=== PATIENT | female | born 1975 | race Caucasian/White ===

== ENCOUNTER 2016-07-23 20:31 | Emergency (ER) | payer BC ==
--- NOTE | 2016-07-23 20:58 | EDM.PDOC ---
ED HPI RENAL/ - General Chief Complaint: Genitourinary Problem Stated Complaint: FLU SYMPTOMS Time Seen by Provider: 07/23/16 20:50 Source of Information: Reports: Patient, Family, RN - History of Present Illness INITIAL COMMENTS - FREE TEXT/NARRATIVE: Today she developed slight dysuria lobe dominant discomfort myalgias subjective feeling of fever the she vomited think she is dehydrated he has juvenile onset diabetes since age 15. She has an insulin pump and. She felt chills. - Related Data Allergies/ADRs: Allergies Allergy/AdvReac Type Severity Reaction Status Date / Time cefdinir [From Omnicef] Allergy Shortness Verified 07/23/16 20:50 of Breath Penicillins Allergy Shortness Verified 07/23/16 20:50 of Breath Sulfa (Sulfonamide Allergy Shortness Verified 07/23/16 20:50 Antibiotics) of Breath sulfamethoxazole Allergy Shortness Verified 07/23/16 20:50 [From Bactrim] of Breath trimethoprim [From Bactrim] Allergy Shortness Verified 07/23/16 20:50 of Breath Home Meds: Home Meds Budesonide/Formoterol [Symbicort 160-4.5 MCG] 1 puff INH BID 03/24/16 [History] Insulin Lispro [Humalog] 1 pump SQ ASDIRECTED 03/24/16 [History] Losartan [Cozaar] 10 mg PO DAILY 03/24/16 [History] Past Medical History HEENT History: Reports: None Cardiovascular History: Reports: None Respiratory History: Reports: None Gastrointestinal History: Reports: None Genitourinary History: Reports: None 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: Musculoskeletal History: Reports: None Neurological History: Reports: None Psychiatric History: Reports: None Endocrine/Metabolic History: Reports: Diabetes, type I Hematologic History: Reports: None Immunologic History: Reports: None Oncologic (Cancer) History: Reports: None Dermatologic History: Reports: None - Infectious Disease History Infectious Disease History: Reports: None - Past Surgical History Female Surgical History: Reports: section Social & Family History - Family History Family Medical History: Noncontributory - Tobacco Use Smoking Status *Q: Never Smoker - Caffeine Use Caffeine Use: Reports: Tea - Recreational Drug Use Recreational Drug Use: No ED ROS GENERAL - Review of Systems Review Of Systems: See Below Constitutional: Reports: chills Respiratory: Denies: Cough Cardiovascular: Denies: Chest pain GI/Abdominal: Reports: Abdominal pain, Nausea ED EXAM, RENAL/ - Physical Exam Exam: See Below General Appearance: alert, no apparent distress, other (Slightly dry oral mucosa ) Head: atraumatic Respiratory/Chest: no respiratory distress, lungs clear GI/Abdominal: soft Rectal (Female) Exam: Deferred Back Exam: No: CVA tenderness (L), CVA tenderness (R) Extremities: no pedal edema Neurological: alert, oriented, other (Normal mentation) Psychiatric: normal mood Course - Vital Signs Last Recorded V/S: Last Vital Signs Temp 98.7 F 07/23/16 20:51 Pulse 116 H 07/23/16 22:10 Resp 18 07/23/16 22:10 BP 155/90 H 07/23/16 22:10 Pulse Ox 96 07/23/16 22:10 - Orders/Labs/Meds Orders: Active Orders 24 hr Category Date Time Status POC Glucose [Blood Glucose Check, Bedside] [RC] ONETIME Care 07/23/16 20:45 Active ABG [BLOOD GAS ARTERIAL] [BG] Stat Lab 07/23/16 21:01 Ordered CULTURE URINE [RM] Stat Lab 07/23/16 20:42 Received Sodium Chloride 0.9% [Normal Saline] 1,000 ml Med 07/23/16 21:00 Active IV ASDIRECTED Medication Orders Sodium Chloride (Normal Saline) 1,000 mls @ 999 mls/hr IV ASDIRECTED MICHELLE Last Admin: 07/23/16 21:20 Dose: 999 mls/hr Labs: Laboratory Tests 07/23/16 07/23/16 07/23/16 Range/Units 20:42 20:51 21:15 WBC 11.08 H (4.0-11.0) K/uL RBC 4.82 (4.30-5.90) M/uL Hgb 12.6 (12.0-16.0) g/dL Hct 38.7 (36.0-46.0) % MCV 80.3 (80.0-98.0) fL MCH 26.1 L (27.0-32.0) pg MCHC 32.6 (31.0-37.0) g/dL RDW Std Deviation 39.7 (28.0-62.0) fl RDW Coeff of Nacho 14 (11.0-15.0) % Plt Count 285 (150-400) K/uL MPV 11.50 (7.40-12.00) fL Neut % (Auto) 54.5 (48.0-80.0) % Lymph % (Auto) 36.9 (16.0-40.0) % [place] % (Auto) 6.2 (0.0-15.0) % Eos % (Auto) 2.2 (0.0-7.0) % Baso % (Auto) 0.2 (0.0-1.5) % Neut # (Auto) 6.0 H (1.4-5.7) K/uL Lymph # (Auto) 4.1 H (0.6-2.4) K/uL [place] # (Auto) 0.7 (0.0-0.8) K/uL Eos # (Auto) 0.2 (0.0-0.7) K/uL Baso # (Auto) 0.0 (0.0-0.1) K/uL Nucleated RBC % 0.0 /100WBC Nucleated RBCs # 0 K/uL Lactate (0.20-2.00) mmol/L Sodium (136-146) mmol/L Potassium (3.5-5.1) mmol/L Chloride (98-110) mmol/L Carbon Dioxide (21-31) mmol/L BUN (6.0-23.0) mg/dL Creatinine (0.6-1.5) mg/dL Est Cr Clr Drug Dosing mL/min Estimated GFR (MDRD) ml/min Glucose (60-110) mg/dL POC Glucose 339 H (60-110) mg/dL Calcium (8.8-10.8) mg/dL Total Bilirubin (0.1-1.5) mg/dL AST (5-40) IU/L ALT (8-54) IU/L Alkaline Phosphatase (40-150) Total Protein (6.0-8.0) g/dL Albumin (3.5-5.0) g/dL Globulin (2.0-3.5) g/dL Albumin/Globulin Ratio (1.3-2.8) HCG, Qual (NEG) Urine Color YELLOW Urine Appearance SLT CLOUDY Urine pH 5.5 (5.0-8.0) Ur Specific [place] 1.025 (1.001-1.035) Urine Protein TRACE (NEGATIVE) mg/dL Urine Glucose (UA) >=1000 (NEGATIVE) mg/dL Urine Ketones NEGATIVE (NEGATIVE) mg/dL Urine Occult Blood NEGATIVE (NEGATIVE) Urine Nitrite NEGATIVE (NEGATIVE) Urine Bilirubin NEGATIVE (NEGATIVE) Urine Urobilinogen 0.2 (<2.0) EU/dL Ur Leukocyte Esterase NEGATIVE (NEGATIVE) Urine RBC 0-1 (0-2/HPF) Urine WBC 2-3 (0-5/HPF) Ur Epithelial Cells MODERATE (NONE-FEW) Urine Bacteria 2+ H (NEGATIVE) Ketones (NEG) 07/23/16 07/23/16 07/23/16 Range/Units 21:15 21:15 21:15 WBC (4.0-11.0) K/uL RBC (4.30-5.90) M/uL Hgb (12.0-16.0) g/dL Hct (36.0-46.0) % MCV (80.0-98.0) fL MCH (27.0-32.0) pg MCHC (31.0-37.0) g/dL RDW Std Deviation (28.0-62.0) fl RDW Coeff of Nacho (11.0-15.0) % Plt Count (150-400) K/uL MPV (7.40-12.00) fL Neut % (Auto) (48.0-80.0) % Lymph % (Auto) (16.0-40.0) % [place] % (Auto) (0.0-15.0) % Eos % (Auto) (0.0-7.0) % Baso % (Auto) (0.0-1.5) % Neut # (Auto) (1.4-5.7) K/uL Lymph # (Auto) (0.6-2.4) K/uL [place] # (Auto) (0.0-0.8) K/uL Eos # (Auto) (0.0-0.7) K/uL Baso # (Auto) (0.0-0.1) K/uL Nucleated RBC % /100WBC Nucleated RBCs # K/uL Lactate 1.8 (0.20-2.00) mmol/L Sodium 134 L (136-146) mmol/L Potassium 4.4 (3.5-5.1) mmol/L Chloride 99 (98-110) mmol/L Carbon Dioxide 24 (21-31) mmol/L BUN 17 (6.0-23.0) mg/dL Creatinine 1.0 (0.6-1.5) mg/dL Est Cr Clr Drug Dosing 57.96 mL/min Estimated GFR (MDRD) > 60.0 ml/min Glucose 365 H (60-110) mg/dL POC Glucose (60-110) mg/dL Calcium 9.5 (8.8-10.8) mg/dL Total Bilirubin 0.3 (0.1-1.5) mg/dL AST 53 H (5-40) IU/L ALT 117 H (8-54) IU/L Alkaline Phosphatase 204 H (40-150) Total Protein 7.2 (6.0-8.0) g/dL Albumin 3.8 (3.5-5.0) g/dL Globulin 3.4 (2.0-3.5) g/dL Albumin/Globulin Ratio 1.1 L (1.3-2.8) HCG, Qual (NEG) Urine Color Urine Appearance Urine pH (5.0-8.0) Ur Specific [place] (1.001-1.035) Urine Protein (NEGATIVE) mg/dL Urine Glucose (UA) (NEGATIVE) mg/dL Urine Ketones (NEGATIVE) mg/dL Urine Occult Blood (NEGATIVE) Urine Nitrite (NEGATIVE) Urine Bilirubin (NEGATIVE) Urine Urobilinogen (<2.0) EU/dL Ur Leukocyte Esterase (NEGATIVE) Urine RBC (0-2/HPF) Urine WBC (0-5/HPF) Ur Epithelial Cells (NONE-FEW) Urine Bacteria (NEGATIVE) Ketones NEGATIVE (NEG) 07/23/16 Range/Units 21:15 WBC (4.0-11.0) K/uL RBC (4.30-5.90) M/uL Hgb (12.0-16.0) g/dL Hct (36.0-46.0) % MCV (80.0-98.0) fL MCH (27.0-32.0) pg MCHC (31.0-37.0) g/dL RDW Std Deviation (28.0-62.0) fl RDW Coeff of Nacho (11.0-15.0) % Plt Count (150-400) K/uL MPV (7.40-12.00) fL Neut % (Auto) (48.0-80.0) % Lymph % (Auto) (16.0-40.0) % [place] % (Auto) (0.0-15.0) % Eos % (Auto) (0.0-7.0) % Baso % (Auto) (0.0-1.5) % Neut # (Auto) (1.4-5.7) K/uL Lymph # (Auto) (0.6-2.4) K/uL [place] # (Auto) (0.0-0.8) K/uL Eos # (Auto) (0.0-0.7) K/uL Baso # (Auto) (0.0-0.1) K/uL Nucleated RBC % /100WBC Nucleated RBCs # K/uL Lactate (0.20-2.00) mmol/L Sodium (136-146) mmol/L Potassium (3.5-5.1) mmol/L Chloride (98-110) mmol/L Carbon Dioxide (21-31) mmol/L BUN (6.0-23.0) mg/dL Creatinine (0.6-1.5) mg/dL Est Cr Clr Drug Dosing mL/min Estimated GFR (MDRD) ml/min Glucose (60-110) mg/dL POC Glucose (60-110) mg/dL Calcium (8.8-10.8) mg/dL Total Bilirubin (0.1-1.5) mg/dL AST (5-40) IU/L ALT (8-54) IU/L Alkaline Phosphatase (40-150) Total Protein (6.0-8.0) g/dL Albumin (3.5-5.0) g/dL Globulin (2.0-3.5) g/dL Albumin/Globulin Ratio (1.3-2.8) HCG, Qual NEGATIVE (NEG) Urine Color Urine Appearance Urine pH (5.0-8.0) Ur Specific [place] (1.001-1.035) Urine Protein (NEGATIVE) mg/dL Urine Glucose (UA) (NEGATIVE) mg/dL Urine Ketones (NEGATIVE) mg/dL Urine Occult Blood (NEGATIVE) Urine Nitrite (NEGATIVE) Urine Bilirubin (NEGATIVE) Urine Urobilinogen (<2.0) EU/dL Ur Leukocyte Esterase (NEGATIVE) Urine RBC (0-2/HPF) Urine WBC (0-5/HPF) Ur Epithelial Cells (NONE-FEW) Urine Bacteria (NEGATIVE) Ketones (NEG) Meds: Medications Generic Name Dose Route Start Last Admin Trade Name Dhaval PRN Reason Stop Dose Admin Sodium Chloride 1,000 mls @ 999 mls/hr 07/23/16 21:00 07/23/16 21:20 Normal Saline IV 999 mls/hr ASDIRECTED MICHELLE Administration Discontinued Medications Generic Name Dose Route Start Last Admin Trade Name Freernesto PRN Reason Stop Dose Admin Ondansetron HCl 4 mg 07/23/16 21:21 07/23/16 21:25 Zofran IVPUSH 07/23/16 21:22 4 mg ONETIME ONE Administration Departure - Departure Time of Disposition: 22:22 Disposition: Home, Self-Care 01 Condition: good Clinical Impression: UTI (urinary tract infection), Diabetes mellitus, Hyperglycemia Forms: ED Department Discharge Additional Instructions: I recommended keeping her in the hospital in light of her tachycardia. She wants to try to go home. We discussed potential complications including diabetic ketoacidosis. She insists on going home and says she will drink plenty of fluids - My Orders Last 24 Hours: My Active Orders 07/23/16 20:42 CULTURE URINE [RM] Stat 07/23/16 20:45 POC Glucose [Blood Glucose Check, Bedside] [RC] ONETIME 07/23/16 21:00 Sodium Chloride 0.9% [Normal Saline] 1,000 ml IV ASDIRECTED 07/23/16 21:01 ABG [BLOOD GAS ARTERIAL] [BG] Stat - Assessment/Plan Last 24 Hours: My Active Orders 07/23/16 20:42 CULTURE URINE [RM] Stat 07/23/16 20:45 POC Glucose [Blood Glucose Check, Bedside] [RC] ONETIME 07/23/16 21:00 Sodium Chloride 0.9% [Normal Saline] 1,000 ml IV ASDIRECTED 07/23/16 21:01 ABG [BLOOD GAS ARTERIAL] [BG] Stat Plan: Prescriptions written for Cipro 250 mg twice a day x7 days. Diflucan 100 mg daily x3 days dispense 3. This is prescribed she is concerned about vaginal yeast infections. She's suffered from this problem in the past I also prescribed Zofran ODT 4 mg every 4 hours when necessary nausea dispensed 6 one refill. Followup if she's not improving promptly. Check her blood sugars frequently. Monitors were blood sugars at home and adjust her insulin pump accordingly.
[2016-07-23] MEDS ORDERED: Sodium Chloride 0.9% 1,000 ML IV SCH (21:00)
[2016-07-23] MEDS ORDERED: Ondansetron 4 MG/2 ML SDV IVPUSH ONE (21:21)
[2016-07-23 21:50] LABS: CHLORIDE,CL 99 mmol/L (98-110); SODIUM,NA 134 mmol/L (136-146)
[2016-07-23] MEDS ORDERED: Ciprofloxacin 250 MG Tab PO ONE (22:26)
[2016-07-23 23:14] VITALS: BP 148/91
== END 2016-07-23 23:00 | disposition home or self-care (01) ==
LOC: MW.ED 20:31
DX: N39.0 Urinary tract infection, site not specified (principal); Z88.0 Allergy status to penicillin; E10.65 Type 1 diabetes mellitus with hyperglycemia; R00.0 Tachycardia, unspecified; Z88.2 Allergy status to sulfonamides; Z88.8 Allergy status to other drugs, medicaments and biological substances; Z79.4 Long term (current) use of insulin; Z79.899 Other long term (current) drug therapy
CPT/HCPCS: 80053; 81001; 82009; 82962; 83605; 84703; 85025; 87086; 87804; 96361; 96374; 99283; A9270; J2405; J7040; 99284

== ENCOUNTER → 2016-08-06 | Outpatient (CLI) | payer BC | END | disposition home or self-care (01) | LOC: MW.CHRC 15:20 | PROVIDERS: ATTEND Family Medicine | DX: R30.0 Dysuria (principal); E10.9 Type 1 diabetes mellitus without complications | CPT/HCPCS: 36415; 80061; 81001; 82044; 83036; 85025; 87086 ==

== ENCOUNTER 2016-08-14 18:13 | Emergency (ER) | payer BC ==
[2016-08-14] MEDS ORDERED: Sodium Chloride 0.9% 1,000 ML IV ONE (18:33)
[2016-08-14] MEDS ORDERED: Sodium Chloride 0.9% 10 ML Syringe FLUSH PRN (18:33)
[2016-08-14] MEDS ORDERED: Ketorolac 30 MG/ML SDV IVPUSH ONE (18:33)
[2016-08-14] MEDS ORDERED: Sodium Chloride 0.9% 2.5 ML Syringe FLUSH PRN (18:33)
--- NOTE | 2016-08-14 18:36 | EDM.PDOC ---
<Coco Coffey - Last Filed: 08/14/16 18:42> ED HPI GENERAL MEDICAL PROBLEM - General Chief Complaint: Abdominal Pain Stated Complaint: DIABETES/BACK PAIN Time Seen by Provider: 08/14/16 18:25 - History of Present Illness INITIAL COMMENTS - FREE TEXT/NARRATIVE: HISTORY AND PHYSICAL: History of present illness: The patient is a 41-year-old female with a history of type 1 diabetes who uses insulin pop and also has a history of interstitial cystitis and presents with complaints of left lower abdominal pain that radiates up to her flank for 4 days. Patient states she was seen by her provider in the family practice clinic last week and had labs which I have reviewed--- CBC hemoglobin A1c UA. Patient states her interstitial cystitis has been under good control and she has recently restarted on [place] to continue with the treatment of this. Patient states she has an appointment with her provider tomorrow she fell at the pain was too strong and she wanted evaluation. She has had no associated fever chest pain nausea vomiting or diarrhea and has had normal bowel movements. Patient states her blood sugar has been reasonably well-controlled with her insulin pump. Patient denies any history of kidney stones and has had no GI problems. Patient denies as her had a vasectomy. Patient says that she only takes [id number] medications for pain and never uses narcotics and is more concerned about the symptomatology and its cause. Patient denies any midline back pain and has no right-sided abdominal pain. Review of systems: As per history of present illness and below otherwise all systems reviewed and negative. Past medical history: As per history of present illness and as reviewed below otherwise noncontributory. Surgical history: As per history of present illness and as reviewed below otherwise noncontributory. Social history: No reported history of drug or alcohol abuse. Family history: As per history of present illness and as reviewed below otherwise noncontributory. Physical exam: General: Well-developed overweight female who is nontoxic and speaking clearly and easily in the ED she moves easily without evidence of discomfort HEENT: Atraumatic, normocephalic, negative for conjunctival pallor or scleral icterus, mucous membranes moist, throat clear, neck supple, nontender, trachea midline. Lungs: Clear to auscultation, breath sounds equal bilaterally, chest nontender. Heart: S1S2, regular, negative for clicks, rubs, or JVD. Abdomen: Soft, nondistended, insulin pump is seen at the lower abdominal wall. Patient has minimal left lower tunnel tenderness on deep palpation without rebound or guarding and bowel sounds are slightly hypoactive Negative for masses or hepatosplenomegaly. Negative for costovertebral tenderness. Pelvis: Stable nontender. Genitourinary: Deferred. Rectal: Deferred. Extremities: Atraumatic, negative for cords or calf pain. Neurovascular unremarkable. Neuro: Awake, alert, oriented. Cranial nerves II through XII unremarkable. Cerebellum unremarkable. Motor and sensory unremarkable throughout. Exam nonfocal. Diagnostics: CBC CMP UA ECG urine culture CT scan of the abdomen and pelvis Therapeutics: IV fluids Toradol 1900: Case was endorsed to Dr. Carrion; he will followup all lab and CT scan results and disposition the patient appropriate to those results. Impression: Left lower abdominal pain with history of interstitial cystitis Definitive disposition and diagnosis as appropriate pending reevaluation and review of above. Left Abdominal Pain Score (Numeric/FACES): 8 - Related Data Allergies Allergy/AdvReac Type Severity Reaction Status Date / Time cefdinir [From Omnicef] Allergy Shortness Verified 08/14/16 18:23 of Breath Penicillins Allergy Shortness Verified 08/14/16 18:23 of Breath Sulfa (Sulfonamide Allergy Shortness Verified 08/14/16 18:23 Antibiotics) of Breath sulfamethoxazole Allergy Shortness Verified 08/14/16 18:23 [From Bactrim] of Breath trimethoprim [From Bactrim] Allergy Shortness Verified 08/14/16 18:23 of Breath Home Meds: Home Meds Budesonide/Formoterol [Symbicort 160-4.5 MCG] 1 puff INH BID 03/24/16 [History] Insulin Lispro [Humalog] 1 pump SQ ASDIRECTED 03/24/16 [History] Losartan [Cozaar] 10 mg PO DAILY 03/24/16 [History] Past Medical History HEENT History: Reports: None Cardiovascular History: Reports: High Cholesterol Respiratory History: Reports: Asthma Gastrointestinal History: Reports: None Genitourinary History: Reports: None 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: Musculoskeletal History: Reports: None Neurological History: Reports: None Psychiatric History: Reports: None Endocrine/Metabolic History: Reports: Diabetes, Type I Hematologic History: Reports: None Immunologic History: Reports: None Oncologic (Cancer) History: Reports: None Dermatologic History: Reports: None - Infectious Disease History Infectious Disease History: Reports: Chicken Pox, Measles, Mumps - Past Surgical History Female Surgical History: Reports: Section Social & Family History - Family History Family Medical History: Noncontributory - Tobacco Use Smoking Status *Q: Unknown Ever Smoked - Caffeine Use Caffeine Use: Reports: None - Recreational Drug Use Recreational Drug Use: No ED ROS GENERAL - Review of Systems Review Of Systems: ROS reveals no pertinent complaints other than HPI. ED EXAM, GENERAL - Physical Exam Exam: See Below (See dictation) Course - Vital Signs Last Recorded V/S: Last Vital Signs Temp 98.0 F 08/14/16 18:21 Pulse 120 H 08/14/16 18:21 Resp 16 08/14/16 18:21 BP 164/100 H 08/14/16 18:21 Pulse Ox 96 08/14/16 18:21 - Orders/Labs/Meds Orders: Active Orders 24 hr Category Date Time Status Abdomen Pelvis wo Cont [CT] Stat Exams 08/14/16 18:33 Taken CULTURE URINE [RM] Stat Lab 08/14/16 18:45 Received Sodium Chloride 0.9% [Saline Flush] Med 08/14/16 18:33 Active 10 ml FLUSH ASDIRECTED PRN Sodium Chloride 0.9% [Saline Flush] Med 08/14/16 18:33 Active 2.5 ml FLUSH ASDIRECTED PRN Saline Lock Insert [OM.PC] Stat Oth 08/14/16 18:33 Ordered Medication Orders Sodium Chloride (Saline Flush) 10 ml FLUSH ASDIRECTED PRN PRN Reason: Keep Vein Open Last Admin: 08/14/16 18:59 Dose: 10 ml Sodium Chloride (Saline Flush) 2.5 ml FLUSH ASDIRECTED PRN PRN Reason: Keep Vein Open Last Admin: 08/14/16 18:59 Dose: 2.5 ml Labs: Laboratory Tests 08/14/16 08/14/16 08/14/16 Range/Units 18:45 18:45 18:45 WBC 10.05 (4.0-11.0) K/uL RBC 5.18 (4.30-5.90) M/uL Hgb 13.6 (12.0-16.0) g/dL Hct 41.2 (36.0-46.0) % MCV 79.5 L (80.0-98.0) fL MCH 26.3 L (27.0-32.0) pg MCHC 33.0 (31.0-37.0) g/dL RDW Std Deviation 38.8 (28.0-62.0) fl RDW Coeff of Nacho 14 (11.0-15.0) % Plt Count 324 (150-400) K/uL MPV 11.60 (7.40-12.00) fL Neut % (Auto) 59.4 (48.0-80.0) % Lymph % (Auto) 31.0 (16.0-40.0) % [place] % (Auto) 6.2 (0.0-15.0) % Eos % (Auto) 3.1 (0.0-7.0) % Baso % (Auto) 0.3 (0.0-1.5) % Neut # (Auto) 6.0 H (1.4-5.7) K/uL Lymph # (Auto) 3.1 H (0.6-2.4) K/uL [place] # (Auto) 0.6 (0.0-0.8) K/uL Eos # (Auto) 0.3 (0.0-0.7) K/uL Baso # (Auto) 0.0 (0.0-0.1) K/uL Nucleated RBC % 0.0 /100WBC Nucleated RBCs # 0 K/uL Sodium 136 (136-146) mmol/L Potassium 4.1 (3.5-5.1) mmol/L Chloride 103 (98-110) mmol/L Carbon Dioxide 20 L (21-31) mmol/L BUN 13 (6.0-23.0) mg/dL Creatinine 1.0 (0.6-1.5) mg/dL Est Cr Clr Drug Dosing 57.96 mL/min Estimated GFR (MDRD) > 60.0 ml/min Glucose 287 H (60-110) mg/dL Calcium 9.6 (8.8-10.8) mg/dL Total Bilirubin 0.2 (0.1-1.5) mg/dL AST 27 (5-40) IU/L ALT 39 (8-54) IU/L Alkaline Phosphatase 170 H (40-150) Total Protein 7.8 (6.0-8.0) g/dL Albumin 4.2 (3.5-5.0) g/dL Globulin 3.6 H (2.0-3.5) g/dL Albumin/Globulin Ratio 1.2 L (1.3-2.8) Urine Color YELLOW Urine Appearance CLEAR Urine pH 5.5 (5.0-8.0) Ur Specific [place] 1.020 (1.001-1.035) Urine Protein NEGATIVE (NEGATIVE) mg/dL Urine Glucose (UA) >=1000 (NEGATIVE) mg/dL Urine Ketones NEGATIVE (NEGATIVE) mg/dL Urine Occult Blood NEGATIVE (NEGATIVE) Urine Nitrite NEGATIVE (NEGATIVE) Urine Bilirubin NEGATIVE (NEGATIVE) Urine Urobilinogen 0.2 (<2.0) EU/dL Ur Leukocyte Esterase NEGATIVE (NEGATIVE) Urine RBC 0-1 (0-2/HPF) Urine WBC 0-2 (0-5/HPF) Ur Epithelial Cells FEW (NONE-FEW) Urine Bacteria FEW (NEGATIVE) Meds: Medications Generic Name Dose Route Start Last Admin Trade Name Freq PRN Reason Stop Dose Admin Sodium Chloride 10 ml 08/14/16 18:33 08/14/16 18:59 Saline Flush FLUSH 10 ml ASDIRECTED PRN Administration Keep Vein Open Sodium Chloride 2.5 ml 08/14/16 18:33 08/14/16 18:59 Saline Flush FLUSH 2.5 ml ASDIRECTED PRN Administration Keep Vein Open Discontinued Medications Generic Name Dose Route Start Last Admin Trade Name Freq PRN Reason Stop Dose Admin Sodium Chloride 1,000 mls @ 999 mls/hr 08/14/16 18:33 08/14/16 18:59 Normal Saline IV 08/14/16 19:33 999 mls/hr STAT ONE Administration Ketorolac Tromethamine 30 mg 08/14/16 18:33 08/14/16 19:03 Toradol IVPUSH 08/14/16 18:34 30 mg ONETIME ONE Administration Departure - Departure Disposition: Home, Self-Care 01 Clinical Impression: Abdominal pain - Discharge Information Referrals: PCP,None [Primary Care Provider] - Forms: ED Department Discharge Additional Instructions: The following information is given to patients seen in the emergency department who are being discharged to home. This information is to outline your options for follow-up care. We provide all patients seen in our emergency department with a follow-up referral. The need for follow-up, as well as the timing and circumstances, are variable depending upon the specifics of your emergency department visit. If you don't have a primary care physician on staff, we will provide you with a referral. We always advise you to contact your personal physician following an emergency department visit to inform them of the circumstance of the visit and for follow-up with them and/or the need for any referrals to a consulting specialist. The emergency department will also refer you to a specialist when appropriate. This referral assures that you have the opportunity for followup care with a specialist. All of these measure are taken in an effort to provide you with optimal care, which includes your followup. Under all circumstances we always encourage you to contact your private physician who remains a resource for coordinating your care. When calling for followup care, please make the office aware that this follow-up is from your recent emergency room visit. If for any reason you are refused follow-up, please contact the [facility] emergency department at and ask to speak to the emergency department charge nurse. [facility] Primary care- [place] [address] Please keep your appointment tomorrow with Dr. Sarmiento <Yandel Carrion - Last Filed: 08/14/16 20:22> ED ROS GENERAL - Review of Systems Review Of Systems: See Below ED EXAM, GENERAL - Physical Exam Neck: Normal Inspection Respiratory/Chest: No Respiratory Distress, Lungs Clear Cardiovascular: Regular Rate, Rhythm GI/Abdominal: Soft, Non-Tender Psychiatric: Normal Mood Course - Re-Assessments/Exams Free Text/Narrative Re-Assessment/Exam: 08/14/16 20:16 I discussed with her regarding her rapid heart rate. She thinks that it is related to pain. She states that she has had rapid heart rate in the past with pain. She will see Dr Sarmiento tomorrow for a follow up We discussed CT findings. Interestingly she has an insulin infusion pump in the area corresponding to subcutaneous air on her abdominal CT. I advised that her abdominal pain could be related to a viral intestinal infection. We also discussed the possibility of interstitial cystitis as an etiology to her pain. She feels much better after toradol. She wants to avoid "narcotics". We discussed avoiding the snf use of NSAID s because of renal effects. Yandel Carrion MD Free Text/Narrative Re-Assessment/Exam: 08/14/16 20:21 she is to recheck blood pressure and heart rate tomorrow with Dr Sarmiento. Departure - Departure Time of Disposition: 20:15
[2016-08-14 19:23] LABS: CHLORIDE,CL 103 mmol/L (98-110); SODIUM,NA 136 mmol/L (136-146)
[2016-08-14 20:26] VITALS: BP 161/84
--- NOTE | 2016-08-15 10:17 | CT ---
EXAM DATE: 08/14/16 PATIENT'S AGE: 41 Patient: LEESA ISLAS Facility: [place], [place] Site . Site : 1975 Study: CT Abdomen/Pelvis [id number]/16/2017 7:17:24 PM Ordering Physician: Erlinda Sepulveda Final Report: INDICATION: left sided pain TECHNIQUE: CT abdomen and pelvis without contrast. COMPARISON: None FINDINGS: Lower chest: Unremarkable. Liver: Nonspecific linear calcifications within the knee medial segment of left hepatic lobe. Spleen: Unremarkable. Pancreas: Unremarkable. Gallbladder and bile ducts: Contracted. Kidneys: Unremarkable. No kidney or ureteral stones and no hydronephrosis. Adrenal glands: Unremarkable. GI tract: Unremarkable. Appendix is normal. Vascular structures: Scattered atherosclerotic disease. Lymph nodes: Mild nonspecific central mesenteric stranding with associated prominent central mesenteric lymph nodes. Miscellaneous: Skin thickening with mild soft tissue induration along the left lower abdominal wall. Focus of subcutaneous gas just left of midline along the ventral abdominal wall. No free air or significant free fluid. Pelvic Organs: Unremarkable. Bones: Degenerative changes. IMPRESSION: 1. Mild nonspecific central mesenteric stranding with associated prominent central mesenteric lymph nodes. Findings are nonspecific but can be seen with panniculitis. 2. Skin thickening with mild soft tissue induration along the lower left abdominal wall. Focus of subcutaneous gas adjacent to this region. This could represent the site of injection with post-injection changes. However infectious/ inflammatory etiology cannot be excluded. Please correlate with physical examination. Dictated by Misael Grace MD @ 08/14/2016 7:38:12 PM Dictated by: Misael Grace MD @ 08/14/2016 19:38:19 (Electronic Signature) Report Signed by Proxy. [facility]
== END 2016-08-14 20:32 | disposition home or self-care (01) ==
LOC: MW.ED 18:13
DX: R10.32 Left lower quadrant pain (principal); E78.00 Pure hypercholesterolemia, unspecified; E10.9 Type 1 diabetes mellitus without complications; J45.909 Unspecified asthma, uncomplicated; Z88.8 Allergy status to other drugs, medicaments and biological substances; Z88.0 Allergy status to penicillin; Z88.2 Allergy status to sulfonamides; Z79.899 Other long term (current) drug therapy
CPT/HCPCS: 74176; 80053; 81001; 85025; 87086; 96361; 96374; 99284; J1885; J7040

== ENCOUNTER → 2016-08-15 | Outpatient (CLI) | payer BC | LOC: MW.CHRC 13:58 | PROVIDERS: ATTEND Family Medicine | DX: R10.9 Unspecified abdominal pain (principal); R00.0 Tachycardia, unspecified; R74.8 Abnormal levels of other serum enzymes | CPT/HCPCS: 36415; 82150; 82977; 84075; 84080; 84439; 84443; 93005 ==

== ENCOUNTER 2016-12-17 14:41 | Emergency (ER) | payer BC ==
--- NOTE | 2016-12-17 14:47 | EDM.PDOC ---
ED HPI GENERAL MEDICAL PROBLEM - General Chief Complaint: Neck Problem Stated Complaint: NECK HURTS Time Seen by Provider: 12/17/16 14:46 Source of Information: Reports: Patient History Limitations: Reports: No Limitations - History of Present Illness INITIAL COMMENTS - FREE TEXT/NARRATIVE: HISTORY AND PHYSICAL: []41-year-old female presenting with left-sided neck pain History of Present Illness: [Pain present for the last couple days, no injury associated with this condition Patient is a type I diabetic and is concerned that it's not heart or stroke causing problem Anxiety is present, as father is having some health problems ] Review of Systems: As per history of present illness and below otherwise all systems reviewed and negative. Past medical history: As per history of present illness and as reviewed below otherwise noncontributory. Surgical history: As per history of present illness and as reviewed below otherwise noncontributory. Social history: No reported history of drug or alcohol abuse. Family history: As per history of present illness and as reviewed below otherwise noncontributory. Physical exam: Alert and oriented female who is nontoxic in appearance. Speaking in full sentences without difficulty. No shortness breath is noted. HEENT: Atraumatic, normocehpalic, pupils reactive, negative for conjunctival pallor or scleral icterus, mucous membranes moist, throat clear, neck tender to left and slightly posterior and left side with palpation, patient is able to move left to right with slight difficulty, trachea midline. Lungs: Clear to auscultation, breath sounds equal bilaterally, chest non tender. Heart: S1S2, regular, negative for clicks, rubs, or JVD. Abdomen: Soft, nondistended, nontender. Negative for masses or hepatossplenmegaly. Negative for costovertebral tenderness. Pelvis: Stable nontender. Genitourinary: Deferred. Rectal: Deferred Extremities: Atraumatic, negative for cords or calf pain. Neurovascular unremarkable. Neuro: Awake, alert, oriented. Cranial nerves II through XII unremarkable. Cerebellum unremarkable. Motor and sensory unremarkable throughout. Exam nonfocal. No weakness to arms there is no drift, no facial droop. Diagnostics: [] Therapeutics: [] Impression: [Torticollis] Plan: []Discharged to home Prescription for Flexeril 10 mg 3 times a day electronically sent to your pharmacy Ibuprofen [id number] as discussed Follow-up with your primary care The worsening of symptoms please return for further evaluation Definitive disposition and diagnosis as appropriate pending reevaluation and review of above. - Related Data Allergies Allergy/AdvReac Type Severity Reaction Status Date / Time cefdinir [From Omnicef] Allergy Shortness Verified 12/17/16 14:45 of Breath Penicillins Allergy Shortness Verified 12/17/16 14:45 of Breath prochlorperazine Allergy Shortness Verified 12/17/16 14:46 [From Compazine] of Breath Sulfa (Sulfonamide Allergy Shortness Verified 12/17/16 14:45 Antibiotics) of Breath sulfamethoxazole Allergy Shortness Verified 12/17/16 14:45 [From Bactrim] of Breath trimethoprim [From Bactrim] Allergy Shortness Verified 12/17/16 14:45 of Breath Home Meds: Home Meds Budesonide/Formoterol [Symbicort 160-4.5 MCG] 1 puff INH BID 03/24/16 [History] Insulin Lispro [Humalog] 1 pump SQ ASDIRECTED 03/24/16 [History] Losartan [Cozaar] 10 mg PO DAILY 03/24/16 [History] Cyclobenzaprine [Flexeril] 10 mg PO TID PRN #30 tablet 12/17/16 [Rx] Past Medical History HEENT History: Reports: None Cardiovascular History: Reports: High Cholesterol Respiratory History: Reports: Asthma Gastrointestinal History: Reports: None Genitourinary History: Reports: None 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: Musculoskeletal History: Reports: None Neurological History: Reports: None Psychiatric History: Reports: None Endocrine/Metabolic History: Reports: Diabetes, Type I Hematologic History: Reports: None Immunologic History: Reports: None Oncologic (Cancer) History: Reports: None Dermatologic History: Reports: None - Infectious Disease History Infectious Disease History: Reports: Chicken Pox, Measles, Mumps - Past Surgical History Female Surgical History: Reports: Section Social & Family History - Family History Family Medical History: Noncontributory - Tobacco Use Smoking Status *Q: Unknown Ever Smoked - Caffeine Use Caffeine Use: Reports: None - Recreational Drug Use Recreational Drug Use: No ED ROS GENERAL - Review of Systems Review Of Systems: ROS reveals no pertinent complaints other than HPI. ED EXAM, UPPER BACK/NECK PAIN - Physical Exam Exam: See Below (see dictation) Departure - Departure Time of Disposition: 14:58 Disposition: Home, Self-Care 01 Condition: Good Clinical Impression: Torticollis - Discharge Information Prescriptions: Cyclobenzaprine [Flexeril] 10 mg PO TID PRN #30 tablet PRN Reason: Muscle Spasm Forms: ED Department Discharge Additional Instructions: The following information is given to patients seen in the emergency department who are being discharged to home. This information is to outline your options for follow-up care. We provide all patients seen in our emergency department with a follow-up referral. The need for follow-up, as well as the timing and circumstances, are variable depending upon the specifics of your emergency department visit. If you don't have a primary care physician on staff, we will provide you with a referral. We always advise you to contact your personal physician following an emergency department visit to inform them of the circumstance of the visit and for follow-up with them and/or the need for any referrals to a consulting specialist. The emergency department will also refer you to a specialist when appropriate. This referral assures that you have the opportunity for followup care with a specialist. All of these measure are taken in an effort to provide you with optimal care, which includes your followup. Under all circumstances we always encourage you to contact your private physician who remains a resource for coordinating your care. When calling for followup care, please make the office aware that this follow-up is from your recent emergency room visit. If for any reason you are refused follow-up, please contact the [facility] emergency department at and asked to speak to the emergency department charge nurse. Follow-up with your primary care is discussed Ibuprofen as discussed Prescription for muscle relaxant has been sent to your pharmacy [facility]. Any worsening of symptoms please do not hesitate to return for reevaluation
[2016-12-17 15:31] VITALS: BP 134/83
== END 2016-12-17 15:25 | disposition home or self-care (01) ==
LOC: MW.ED 14:41
DX: M43.6 Torticollis (principal); E78.00 Pure hypercholesterolemia, unspecified; J45.909 Unspecified asthma, uncomplicated; E10.9 Type 1 diabetes mellitus without complications; Z88.0 Allergy status to penicillin; Z88.8 Allergy status to other drugs, medicaments and biological substances; Z88.2 Allergy status to sulfonamides; Z88.1 Allergy status to other antibiotic agents
CPT/HCPCS: 99282

== ENCOUNTER 2017-05-13 08:09 | Emergency (ER) | payer BC ==
[2017-05-13 08:26] VITALS: BP 147/89
[2017-05-13] MEDS ORDERED: Sodium Chloride 0.9% 2.5 ML Syringe FLUSH PRN (08:36)
[2017-05-13] MEDS ORDERED: Ondansetron 4 MG/2 ML SDV IVPUSH ONE (08:36)
[2017-05-13] MEDS ORDERED: Sodium Chloride 0.9% 10 ML Syringe FLUSH PRN (08:36)
--- NOTE | 2017-05-13 08:38 | EDM.PDOC ---
ED HPI GENERAL MEDICAL PROBLEM - General Chief Complaint: General Stated Complaint: COLD Time Seen by Provider: 05/13/17 08:31 Source of Information: Reports: Patient History Limitations: Reports: No Limitations - History of Present Illness INITIAL COMMENTS - FREE TEXT/NARRATIVE: History of present illness: []Patient's type I diabetic who has been sick for a week with nonbloody diarrhea. She saw her doctor week and was diagnosed with a sinus infection and treated with a Z-Thomas which has not given her any improvement. She is drinking as much as she can but is extremely nauseated and continues to have diarrhea. Feels dehydrated and her glucoses have been increasing to the 200s where she normally runs in the 90s. Review of systems: As per history of present illness and below otherwise all systems reviewed and negative. Past medical history: As per history of present illness and as reviewed below otherwise noncontributory. Surgical history: As per history of present illness and as reviewed below otherwise noncontributory. Social history: No reported history of drug or alcohol abuse. Family history: As per history of present illness and as reviewed below otherwise noncontributory. Physical exam: General: Well developed, well nourished in NAD HEENT: Atraumatic, normocephalic, pupils reactive, negative for conjunctival pallor or scleral icterus, mucous membranes moist, throat clear, neck supple, nontender, trachea midline. Lungs: Clear to auscultation, breath sounds equal bilaterally, chest nontender. Heart: S1S2, regular, negative for clicks, rubs, or JVD. Abdomen: Soft, nondistended, nontender. Negative for masses or hepatosplenomegaly. Negative for costovertebral tenderness. Pelvis: Stable nontender. Genitourinary: Deferred. Rectal: Deferred. Extremities: Atraumatic, negative for cords or calf pain. Neurovascular unremarkable. Neuro: Awake, alert, oriented. Cranial nerves II through XII unremarkable. Cerebellum unremarkable. Motor and sensory unremarkable throughout. Exam nonfocal. Diagnostics: []Labs drawn elevated liver function tests but are stable Therapeutics: []2 L normal saline with improvement Impression: []Diarrhea with Dehydration Plan: []Increase fluids follow-up with PMD Zofran as needed for nausea Definitive disposition and diagnosis as appropriate pending reevaluation and review of above. - Related Data Allergies Allergy/AdvReac Type Severity Reaction Status Date / Time cefdinir [From Omnicef] Allergy Shortness Verified 05/13/17 08:23 of Breath Penicillins Allergy Shortness Verified 05/13/17 08:23 of Breath prochlorperazine Allergy Shortness Verified 05/13/17 08:23 [From Compazine] of Breath Sulfa (Sulfonamide Allergy Shortness Verified 05/13/17 08:23 Antibiotics) of Breath sulfamethoxazole Allergy Shortness Verified 05/13/17 08:23 [From Bactrim] of Breath trimethoprim [From Bactrim] Allergy Shortness Verified 05/13/17 08:23 of Breath Home Meds: Home Meds Budesonide/Formoterol [Symbicort 160-4.5 MCG] 1 puff INH BID 03/24/16 [History] Insulin Lispro [Humalog] 1 pump SQ ASDIRECTED 03/24/16 [History] Losartan [Cozaar] 10 mg PO DAILY 03/24/16 [History] Cyclobenzaprine [Flexeril] 10 mg PO TID PRN #30 tablet 12/17/16 [Rx] Ondansetron HCl [Zofran] 4 mg PO Q4HR #12 tablet 05/13/17 [Rx] Past Medical History HEENT History: Reports: None Cardiovascular History: Reports: High Cholesterol Respiratory History: Reports: Asthma Gastrointestinal History: Reports: None Genitourinary History: Reports: None 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: Musculoskeletal History: Reports: None Other Musculoskeletal History: cervical dissectomy Neurological History: Reports: None Psychiatric History: Reports: None Endocrine/Metabolic History: Reports: Diabetes, Type I Hematologic History: Reports: None Immunologic History: Reports: None Oncologic (Cancer) History: Reports: None Dermatologic History: Reports: None - Infectious Disease History Infectious Disease History: Reports: Chicken Pox, Measles, Mumps - Past Surgical History Head Surgeries/Procedures: Reports: None HEENT Surgical History: Reports: None Cardiovascular Surgical History: Reports: None Respiratory Surgical History: Reports: None GI Surgical History: Reports: None Female Surgical History: Reports: Section Endocrine Surgical History: Reports: None Neurological Surgical History: Reports: None Musculoskeletal Surgical History: Reports: None Oncologic Surgical History: Reports: None Dermatological Surgical History: Reports: None Social & Family History - Family History Family Medical History: Noncontributory - Tobacco Use Smoking Status *Q: Never Smoker Second Hand Smoke Exposure: No - Caffeine Use Caffeine Use: Reports: None - Recreational Drug Use Recreational Drug Use: No ED ROS GENERAL - Review of Systems Review Of Systems: See Below (See history of present illness) ED EXAM, GENERAL - Physical Exam Exam: See Below (See history of present illness) Course - Vital Signs Last Recorded V/S: Last Vital Signs Temp 97.1 F 05/13/17 08:23 Pulse 108 H 05/13/17 08:23 Resp 18 05/13/17 08:23 BP 147/89 H 05/13/17 08:23 Pulse Ox 98 05/13/17 08:23 - Orders/Labs/Meds Orders: Active Orders 24 hr Category Date Time Status Sodium Chloride 0.9% [Saline Flush] Med 05/13/17 08:36 Active 10 ml FLUSH ASDIRECTED PRN Sodium Chloride 0.9% [Saline Flush] Med 05/13/17 08:36 Active 2.5 ml FLUSH ASDIRECTED PRN Saline Lock Insert [OM.PC] Stat Oth 05/13/17 08:36 Ordered Medication Orders Sodium Chloride (Saline Flush) 10 ml FLUSH ASDIRECTED PRN PRN Reason: Keep Vein Open Last Admin: 05/13/17 08:50 Dose: 10 ml Sodium Chloride (Saline Flush) 2.5 ml FLUSH ASDIRECTED PRN PRN Reason: Keep Vein Open Last Admin: 05/13/17 08:50 Dose: 2.5 ml Labs: Laboratory Tests 05/13/17 05/13/17 Range/Units 08:40 08:40 WBC 9.31 (4.0-11.0) K/uL RBC 5.03 (4.30-5.90) M/uL Hgb 13.6 (12.0-16.0) g/dL Hct 40.2 (36.0-46.0) % MCV 79.9 L (80.0-98.0) fL MCH 27.0 (27.0-32.0) pg MCHC 33.8 (31.0-37.0) g/dL RDW Std Deviation 41.1 (28.0-62.0) fl RDW Coeff of Nacho 14 (11.0-15.0) % Plt Count 277 (150-400) K/uL MPV 11.70 (7.40-12.00) fL Neut % (Auto) 55.7 (48.0-80.0) % Lymph % (Auto) 31.3 (16.0-40.0) % Atkinson % (Auto) 8.9 (0.0-15.0) % Eos % (Auto) 3.7 (0.0-7.0) % Baso % (Auto) 0.4 (0.0-1.5) % Neut # (Auto) 5.2 (1.4-5.7) K/uL Lymph # (Auto) 2.9 H (0.6-2.4) K/uL Atkinson # (Auto) 0.8 (0.0-0.8) K/uL Eos # (Auto) 0.3 (0.0-0.7) K/uL Baso # (Auto) 0.0 (0.0-0.1) K/uL Nucleated RBC % 0.0 /100WBC Nucleated RBCs # 0 K/uL Sodium 136 (136-146) mmol/L Potassium 4.5 (3.5-5.1) mmol/L Chloride 104 (98-110) mmol/L Carbon Dioxide 21 (21-31) mmol/L BUN 18 (6.0-23.0) mg/dL Creatinine 0.8 (0.6-1.5) mg/dL Est Cr Clr Drug Dosing 71.71 mL/min Estimated GFR (MDRD) > 60.0 ml/min Glucose 342 H (60-110) mg/dL Calcium 9.7 (8.8-10.8) mg/dL Total Bilirubin 0.4 (0.1-1.5) mg/dL AST 60 H (5-40) IU/L ALT 137 H (8-54) IU/L Alkaline Phosphatase 248 H (40-150) Total Protein 7.1 (6.0-8.0) g/dL Albumin 3.8 (3.5-5.0) g/dL Globulin 3.3 (2.0-3.5) g/dL Albumin/Globulin Ratio 1.2 L (1.3-2.8) Meds: Medications Generic Name Dose Route Start Last Admin Trade Name Freq PRN Reason Stop Dose Admin Sodium Chloride 10 ml 05/13/17 08:36 05/13/17 08:50 Saline Flush FLUSH 10 ml ASDIRECTED PRN Administration Keep Vein Open Sodium Chloride 2.5 ml 05/13/17 08:36 05/13/17 08:50 Saline Flush FLUSH 2.5 ml ASDIRECTED PRN Administration Keep Vein Open Discontinued Medications Generic Name Dose Route Start Last Admin Trade Name Freq PRN Reason Stop Dose Admin Sodium Chloride 2,000 mls @ 999 mls/hr 05/13/17 08:36 05/13/17 09:45 Normal Saline IV 05/13/17 10:36 999 mls/hr .Bolus ONE Administration Ondansetron HCl 4 mg 05/13/17 08:36 05/13/17 08:50 Zofran IVPUSH 05/13/17 08:37 4 mg ONETIME ONE Administration Departure - Departure Time of Disposition: 10:38 Disposition: Home, Self-Care 01 Condition: Good Clinical Impression: Dehydration Diarrhea Qualifiers: Diarrhea type: unspecified type Qualified Code(s): R19.7 - Diarrhea, unspecified - Discharge Information Prescriptions: Ondansetron HCl [Zofran] 4 mg PO Q4HR #12 tablet Referrals: Leonard Reynolds [Primary Care Provider] - Forms: ED Department Discharge Additional Instructions: The following information is given to patients seen in the emergency department who are being discharged to home. This information is to outline your options for follow-up care. We provide all patients seen in our emergency department with a follow-up referral. The need for follow-up, as well as the timing and circumstances, are variable depending upon the specifics of your emergency department visit. If you don't have a primary care physician on staff, we will provide you with a referral. We always advise you to contact your personal physician following an emergency department visit to inform them of the circumstance of the visit and for follow-up with them and/or the need for any referrals to a consulting specialist. The emergency department will also refer you to a specialist when appropriate. This referral assures that you have the opportunity for follow-up care with a specialist. All of these measure are taken in an effort to provide you with optimal care, which includes your follow-up. Under all circumstances we always encourage you to contact your private physician who remains a resource for coordinating your care. When calling for follow-up care, please make the office aware that this follow-up is from your recent emergency room visit. If for any reason you are refused follow-up, please contact the [facility] Emergency Department at and asked to speak to the emergency department charge nurse. Kar, increase fluids as directed return if symptoms worsen or change [facility] [address] [place] [id number] - My Orders Last 24 Hours: My Active Orders 05/13/17 08:36 Sodium Chloride 0.9% [Saline Flush] 10 ml FLUSH ASDIRECTED PRN Sodium Chloride 0.9% [Saline Flush] 2.5 ml FLUSH ASDIRECTED PRN Saline Lock Insert [OM.PC] Stat - Assessment/Plan Last 24 Hours: My Active Orders 05/13/17 08:36 Sodium Chloride 0.9% [Saline Flush] 10 ml FLUSH ASDIRECTED PRN Sodium Chloride 0.9% [Saline Flush] 2.5 ml FLUSH ASDIRECTED PRN Saline Lock Insert [OM.PC] Stat
[2017-05-13] MEDS: Sodium Chloride 0.9% 2,000 ML IV ONE ×2 (08:50→09:45)
[2017-05-13 09:23] LABS: CHLORIDE,CL 104 mmol/L (98-110); SODIUM,NA 136 mmol/L (136-146)
== END 2017-05-13 11:00 | disposition home or self-care (01) ==
LOC: MW.ED 08:09
DX: R19.7 Diarrhea, unspecified (principal); E86.0 Dehydration; E78.00 Pure hypercholesterolemia, unspecified; E10.9 Type 1 diabetes mellitus without complications; Z79.4 Long term (current) use of insulin; Z79.899 Other long term (current) drug therapy; Z88.0 Allergy status to penicillin; Z88.1 Allergy status to other antibiotic agents; Z88.2 Allergy status to sulfonamides; Z88.8 Allergy status to other drugs, medicaments and biological substances
CPT/HCPCS: 36415; 80053; 85025; 96361; 96374; 99284; J2405; J7040; 99283

== ENCOUNTER 2017-12-24 05:47 | Emergency (ER) | payer BC ==
[2017-12-24] MEDS ORDERED: Ondansetron 4 MG/2 ML SDV IVPUSH ONE (07:33)
[2017-12-24] MEDS ORDERED: Sodium Chloride 0.9% 1,000 ML IV ONE (07:33)
--- NOTE | 2017-12-24 07:37 | EDM.PDOC ---
ED HPI GENERAL MEDICAL PROBLEM - General Chief Complaint: ENT Problem Stated Complaint: SINUS PRESSURE, VOMITING, COUGH Time Seen by Provider: 12/24/17 07:34 Source of Information: Reports: Patient - History of Present Illness INITIAL COMMENTS - FREE TEXT/NARRATIVE: HISTORY AND PHYSICAL: History of present illness: []Patient presents with sinus pain and tenderness she is a type I diabetic states her glucoses been over 200 this morning, she does have some mild nausea she has coughed until vomiting no fever chills sweats no chest pain shortness breath dizziness or palpitation no bowel or urine symptoms Review of systems: As per history of present illness and below otherwise all systems reviewed and negative. Past medical history: As per history of present illness and as reviewed below otherwise noncontributory. Surgical history: As per history of present illness and as reviewed below otherwise noncontributory. Social history: No reported history of drug or alcohol abuse. Family history: As per history of present illness and as reviewed below otherwise noncontributory. Physical exam: HEENT: Atraumatic, normocephalic, pupils reactive, negative for conjunctival pallor or scleral icterus, mucous membranes moist, throat clear, neck supple, nontender, trachea midline. pansinusitis tender right greater than left tympanic membranes mild effusion, dry lips and oral mucosa Lungs: Clear to auscultation, breath sounds equal bilaterally, chest nontender. Heart: S1S2, regular, negative for clicks, rubs, or JVD. Abdomen: Soft, nondistended, nontender. Negative for masses or hepatosplenomegaly. Negative for costovertebral tenderness. Pelvis: Stable nontender. Genitourinary: Deferred. Rectal: Deferred. Extremities: Atraumatic, negative for cords or calf pain. Neurovascular unremarkable. Neuro: Awake, alert, oriented. Cranial nerves II through XII unremarkable. Cerebellum unremarkable. Motor and sensory unremarkable throughout. Exam nonfocal. Diagnostics: [ Accu-Chek ] Therapeutics: [ 1 L normal saline bolus Zofran 8 mg IV Azithromycin [id number] symptomatic therapies discussed ] Impression: [ sinusitis Hyperglycemia Type 1 diabetes baseline ] Definitive disposition and diagnosis as appropriate pending reevaluation and review of above. Throat Pain Score (Numeric/FACES): 8 - Related Data Allergies Allergy/AdvReac Type Severity Reaction Status Date / Time cefdinir [From SpaceILicef] Allergy Shortness Verified 05/13/17 08:23 of Breath Penicillins Allergy Shortness Verified 05/13/17 08:23 of Breath prochlorperazine Allergy Shortness Verified 05/13/17 08:23 [From Compazine] of Breath Sulfa (Sulfonamide Allergy Shortness Verified 05/13/17 08:23 Antibiotics) of Breath sulfamethoxazole Allergy Shortness Verified 05/13/17 08:23 [From Bactrim] of Breath trimethoprim [From Bactrim] Allergy Shortness Verified 05/13/17 08:23 of Breath Home Meds: Home Meds Budesonide/Formoterol [Symbicort 160-4.5 MCG] 1 puff INH BID 03/24/16 [History] Insulin Lispro [Humalog] 1 pump SQ ASDIRECTED 03/24/16 [History] Losartan [Cozaar] 10 mg PO DAILY 03/24/16 [History] Cyclobenzaprine [Flexeril] 10 mg PO TID PRN #30 tablet 12/17/16 [Rx] Ondansetron HCl [Zofran] 4 mg PO Q4HR #12 tablet 05/13/17 [Rx] Past Medical History HEENT History: Reports: None Cardiovascular History: Reports: High Cholesterol Respiratory History: Reports: Asthma Gastrointestinal History: Reports: None Genitourinary History: Reports: None 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: Musculoskeletal History: Reports: None Other Musculoskeletal History: cervical dissectomy Neurological History: Reports: None Psychiatric History: Reports: None Endocrine/Metabolic History: Reports: Diabetes, Type I Hematologic History: Reports: None Immunologic History: Reports: None Oncologic (Cancer) History: Reports: None Dermatologic History: Reports: None - Infectious Disease History Infectious Disease History: Reports: Chicken Pox, Measles, Mumps - Past Surgical History Head Surgeries/Procedures: Reports: None HEENT Surgical History: Reports: None Cardiovascular Surgical History: Reports: None Respiratory Surgical History: Reports: None GI Surgical History: Reports: None Female Surgical History: Reports: Section Endocrine Surgical History: Reports: None Neurological Surgical History: Reports: None Musculoskeletal Surgical History: Reports: None Oncologic Surgical History: Reports: None Dermatological Surgical History: Reports: None Social & Family History - Family History Family Medical History: Noncontributory - Tobacco Use Smoking Status *Q: Never Smoker Second Hand Smoke Exposure: No - Caffeine Use Caffeine Use: Reports: Tea - Recreational Drug Use Recreational Drug Use: No ED ROS GENERAL - Review of Systems Review Of Systems: See Below ED EXAM, GENERAL - Physical Exam Exam: See Below Course - Vital Signs Last Recorded V/S: Last Vital Signs Temp 97.5 F 12/24/17 05:58 Pulse 102 H 12/24/17 05:58 Resp 20 12/24/17 05:58 BP 144/89 H 12/24/17 05:58 Pulse Ox 97 12/24/17 05:58 - Orders/Labs/Meds Orders: Active Orders 24 hr Category Date Time Status Accu Check [Blood Glucose Check, Bedside] [RC] ONETIME Care 12/24/17 07:34 Ordered CULTURE STREP A CONFIRMATION [] Stat Lab 12/24/17 06:30 Results STREP SCRN A RAPID W CULT CONF [] Stat Lab 12/24/17 06:30 Results Sodium Chloride 0.9% [Normal Saline] 1,000 ml Med 12/24/17 07:33 Ordered IV STAT Medication Orders Sodium Chloride (Normal Saline) 1,000 mls @ 999 mls/hr IV STAT ONE Stop: 12/24/17 08:33 Meds: Medications Generic Name Dose Route Start Last Admin Trade Name Freq PRN Reason Stop Dose Admin Sodium Chloride 1,000 mls @ 999 mls/hr 12/24/17 07:33 Normal Saline IV 12/24/17 08:33 STAT ONE Discontinued Medications Generic Name Dose Route Start Last Admin Trade Name Freq PRN Reason Stop Dose Admin Ondansetron HCl 8 mg 12/24/17 07:33 Zofran IVPUSH 12/24/17 07:34 ONETIME ONE Departure - Departure Time of Disposition: 07:36 Disposition: Home, Self-Care 01 Condition: Good Clinical Impression: Sinusitis - Discharge Information Referrals: Leonard Reynolds MD [Primary Care Provider] - Additional Instructions: The following information is given to patients seen in the emergency department who are being discharged to home. This information is to outline your options for follow-up care. We provide all patients seen in our emergency department with a follow-up referral. The need for follow-up, as well as the timing and circumstances, are variable depending upon the specifics of your emergency department visit. If you don't have a primary care physician on staff, we will provide you with a referral. We always advise you to contact your personal physician following an emergency department visit to inform them of the circumstance of the visit and for follow-up with them and/or the need for any referrals to a consulting specialist. The emergency department will also refer you to a specialist when appropriate. This referral assures that you have the opportunity for follow-up care with a specialist. All of these measure are taken in an effort to provide you with optimal care, which includes your follow-up. Under all circumstances we always encourage you to contact your private physician who remains a resource for coordinating your care. When calling for follow-up care, please make the office aware that this follow-up is from your recent emergency room visit. If for any reason you are refused follow-up, please contact the [facility] emergency department at and asked to speak to the emergency department charge nurse. - My Orders Last 24 Hours: My Active Orders 12/24/17 07:33 Sodium Chloride 0.9% [Normal Saline] 1,000 ml IV STAT 12/24/17 07:34 Accu Check [Blood Glucose Check, Bedside] [RC] ONETIME - Assessment/Plan Last 24 Hours: My Active Orders 12/24/17 07:33 Sodium Chloride 0.9% [Normal Saline] 1,000 ml IV STAT 12/24/17 07:34 Accu Check [Blood Glucose Check, Bedside] [RC] ONETIME
[2017-12-24 09:20] VITALS: BP 134/85
== END 2017-12-24 09:16 | disposition home or self-care (01) ==
LOC: MW.ED 05:47
DX: J32.9 Chronic sinusitis, unspecified (principal); E10.65 Type 1 diabetes mellitus with hyperglycemia; Z88.0 Allergy status to penicillin; Z88.2 Allergy status to sulfonamides; Z88.1 Allergy status to other antibiotic agents; Z79.4 Long term (current) use of insulin; Z79.899 Other long term (current) drug therapy
CPT/HCPCS: 82962; 87081; 87880; 96361; 96374; 99283; J2405; J7040

== ENCOUNTER 2018-05-04 15:51 | Emergency (ER) | payer BC ==
[2018-05-04] MEDS ORDERED: Ketorolac 60 MG/2 ML SDV IM ONE (15:59)
[2018-05-04] MEDS ORDERED: Silver Sulfadiazine 1% Crm 50 GM Tube TOP ONE (16:00)
[2018-05-04] MEDS ORDERED: Acetaminophen/HYDROcodone 325-7.5 MG Tab PO ONE (16:00)
[2018-05-04] MEDS ORDERED: traMADol 50 MG Tab PO ONE (16:03)
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
[2018-05-04 17:16] VITALS: BP 130/75
== END 2018-05-04 16:53 | disposition home or self-care (01) ==
LOC: MW.ED 15:51
DX: T22.012A Burn of unspecified degree of left forearm, initial encounter (principal); X19.XXXA Contact with other heat and hot substances, initial encounter
CPT/HCPCS: 16020; 96372; 99283; A9270; J1885

== ENCOUNTER 2018-06-26 08:50 | Emergency (ER) | payer BC ==
[2018-06-26 09:05] VITALS: BP 159/98
[2018-06-26] MEDS ORDERED: Sodium Chloride 0.9% 1,000 ML IV ONE (09:15)
[2018-06-26] MEDS ORDERED: Ondansetron 4 MG/2 ML SDV IVPUSH ONE (09:30)
--- NOTE | 2018-06-26 09:46 | EDM.PDOC ---
ED HPI GENERAL MEDICAL PROBLEM - General Chief Complaint: General Stated Complaint: SENT FROM [facility] Time Seen by Provider: 06/26/18 09:15 - History of Present Illness INITIAL COMMENTS - FREE TEXT/NARRATIVE: HISTORY AND PHYSICAL: History of present illness: Patient's 43-year-old white female presents with a concern of possible dehydration she states she's not been feeling well generally and was recently evaluated and was noted to have some sludge in her gallbladder and was going to be referred to general surgery she states she had a chest x-ray with an incidental finding and so an elevated white blood cell count she is not on antibiotics she denies fever chills chest pain shortness of breath or other concern Review of systems: As per history of present illness and below otherwise all systems reviewed and negative. Past medical history: As per history of present illness and as reviewed below otherwise noncontributory. Surgical history: As per history of present illness and as reviewed below otherwise noncontributory. Social history: No reported history of drug or alcohol abuse. Family history: As per history of present illness and as reviewed below otherwise noncontributory. Physical exam: HEENT: Atraumatic, normocephalic, pupils reactive, negative for conjunctival pallor or scleral icterus, mucous membranes moist, throat clear, neck supple, nontender, trachea midline. Lungs: Clear to auscultation, breath sounds equal bilaterally, chest nontender. Heart: S1S2, regular, negative for clicks, rubs, or JVD. Abdomen: Soft, nondistended, nontender. Negative for masses or hepatosplenomegaly. Negative for costovertebral tenderness. Pelvis: Stable nontender. Genitourinary: Deferred. Rectal: Deferred. Extremities: Atraumatic, negative for cords or calf pain. Neurovascular unremarkable. Neuro: Awake, alert, oriented. Cranial nerves II through XII unremarkable. Cerebellum unremarkable. Motor and sensory unremarkable throughout. Exam nonfocal. Diagnostics: CBC CMP UA PT/INR Therapeutics: Saline 1 L bolus Impression: #1 history of biliary colic #2 dehydration #3 medical screening exam Definitive disposition and diagnosis as appropriate pending reevaluation and review of above. Middle Abdominal Pain Score (Numeric/FACES): 5 - Related Data Allergies Allergy/AdvReac Type Severity Reaction Status Date / Time amoxicillin Allergy Shortness Verified 02/12/18 20:45 of Breath cefdinir [From Omnicef] Allergy Shortness Verified 05/13/17 08:23 of Breath Penicillins Allergy Shortness Verified 05/13/17 08:23 of Breath prochlorperazine Allergy Shortness Verified 05/13/17 08:23 [From Compazine] of Breath Sulfa (Sulfonamide Allergy Shortness Verified 05/13/17 08:23 Antibiotics) of Breath sulfamethoxazole Allergy Shortness Verified 05/13/17 08:23 [From Bactrim] of Breath tetracycline Allergy Shortness Verified 02/12/18 20:45 of Breath trimethoprim [From Bactrim] Allergy Shortness Verified 05/13/17 08:23 of Breath Home Meds: Home Meds Budesonide/Formoterol [Symbicort 160-4.5 MCG] 2 puff INH DAILY 03/24/16 [History ] Insulin Lispro [Humalog] 1 pump SQ ASDIRECTED 03/24/16 [History] Losartan [Cozaar] 10 mg PO DAILY 03/24/16 [History] Past Medical History - Past Health History Medical/Surgical History: Denies Medical/Surgical History HEENT History: Reports: None Cardiovascular History: Reports: High Cholesterol Respiratory History: Reports: Asthma Gastrointestinal History: Reports: None Genitourinary History: Reports: None 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: Musculoskeletal History: Reports: None Other Musculoskeletal History: cervical dissectomy Neurological History: Reports: None Psychiatric History: Reports: None Endocrine/Metabolic History: Reports: Diabetes, Type I Hematologic History: Reports: None Immunologic History: Reports: None Oncologic (Cancer) History: Reports: None Dermatologic History: Reports: None - Infectious Disease History Infectious Disease History: Reports: Chicken Pox - Past Surgical History Head Surgeries/Procedures: Reports: None HEENT Surgical History: Reports: None Cardiovascular Surgical History: Reports: None Respiratory Surgical History: Reports: None GI Surgical History: Reports: None Female Surgical History: Reports: Section Endocrine Surgical History: Reports: None Neurological Surgical History: Reports: None Musculoskeletal Surgical History: Reports: None Oncologic Surgical History: Reports: None Dermatological Surgical History: Reports: None Social & Family History - Family History Family Medical History: Noncontributory - Tobacco Use Smoking Status *Q: Never Smoker - Caffeine Use Caffeine Use: Reports: Tea - Recreational Drug Use Recreational Drug Use: No ED ROS GENERAL - Review of Systems Review Of Systems: ROS reveals no pertinent complaints other than HPI. ED EXAM, GENERAL - Physical Exam Exam: See Below (See dictation) Course - Vital Signs Last Recorded V/S: Last Vital Signs Temp 36.6 C 06/26/18 09:02 Pulse 112 H 06/26/18 09:02 Resp 18 06/26/18 09:02 BP 159/98 H 06/26/18 09:02 Pulse Ox 98 06/26/18 09:02 - Orders/Labs/Meds Orders: Active Orders 24 hr Category Date Time Status COMPREHENSIVE METABOLIC PN,CMP [CHEM] Stat Lab 06/26/18 09:25 Received LIPASE [CHEM] Stat Lab 06/26/18 09:25 Received UA RFX [place] AND CULT IF INDIC [URIN] Stat Lab 06/26/18 09:45 Received Sodium Chloride 0.9% [Normal Saline] 1,000 ml Med 06/26/18 09:15 Active IV STAT Medication Orders Sodium Chloride (Normal Saline) 1,000 mls @ 999 mls/hr IV STAT ONE Stop: 06/26/18 10:15 Last Admin: 06/26/18 09:39 Dose: 999 mls/hr Labs: Laboratory Tests 06/26/18 06/26/18 Range/Units 09:25 09:25 WBC 9.03 (4.0-11.0) K/uL RBC 5.02 (4.30-5.90) M/uL Hgb 14.1 (12.0-16.0) g/dL Hct 41.6 (36.0-46.0) % MCV 82.9 (80.0-98.0) fL MCH 28.1 (27.0-32.0) pg MCHC 33.9 (31.0-37.0) g/dL RDW Std Deviation 40.0 (28.0-62.0) fl RDW Coeff of Nacho 13 (11.0-15.0) % Plt Count 329 (150-400) K/uL MPV 11.50 (7.40-12.00) fL Neut % (Auto) 50.4 (48.0-80.0) % Lymph % (Auto) 39.0 (16.0-40.0) % [place] % (Auto) 6.5 (0.0-15.0) % Eos % (Auto) 3.7 (0.0-7.0) % Baso % (Auto) 0.4 (0.0-1.5) % Neut # (Auto) 4.6 (1.4-5.7) K/uL Lymph # (Auto) 3.5 H (0.6-2.4) K/uL [place] # (Auto) 0.6 (0.0-0.8) K/uL Eos # (Auto) 0.3 (0.0-0.7) K/uL Baso # (Auto) 0.0 (0.0-0.1) K/uL Nucleated RBC % 0.0 /100WBC Nucleated RBCs # 0 K/uL INR 0.91 Meds: Medications Generic Name Dose Route Start Last Admin Trade Name Freq PRN Reason Stop Dose Admin Sodium Chloride 1,000 mls @ 999 mls/hr 06/26/18 09:15 06/26/18 09:39 Normal Saline IV 06/26/18 10:15 999 mls/hr STAT ONE Administration Discontinued Medications Generic Name Dose Route Start Last Admin Trade Name Freq PRN Reason Stop Dose Admin Ondansetron HCl 4 mg 06/26/18 09:30 06/26/18 09:39 Zofran IVPUSH 06/26/18 09:31 4 mg ONETIME ONE Administration Departure - Departure Time of Disposition: 10:02 Disposition: Home, Self-Care 01 Condition: Good Clinical Impression: Encounter for medical screening examination, Dehydration - Discharge Information Referrals: PCP,Unknown [Primary Care Provider] - Forms: ED Department Discharge Additional Instructions: The following information is given to patients seen in the emergency department who are being discharged to home. This information is to outline your options for follow-up care. We provide all patients seen in our emergency department with a follow-up referral. The need for follow-up, as well as the timing and circumstances, are variable depending upon the specifics of your emergency department visit. If you don't have a primary care physician on staff, we will provide you with a referral. We always advise you to contact your personal physician following an emergency department visit to inform them of the circumstance of the visit and for follow-up with them and/or the need for any referrals to a consulting specialist. The emergency department will also refer you to a specialist when appropriate. This referral assures that you have the opportunity for followup care with a specialist. All of these measure are taken in an effort to provide you with optimal care, which includes your followup. Under all circumstances we always encourage you to contact your private physician who remains a resource for coordinating your care. When calling for followup care, please make the office aware that this follow-up is from your recent emergency room visit. If for any reason you are refused follow-up, please contact the [facility] emergency department at and asked to speak to the emergency department charge nurse. Follow-up primary care as discussed return as needed as discussed - My Orders Last 24 Hours: My Active Orders 06/26/18 09:15 Sodium Chloride 0.9% [Normal Saline] 1,000 ml IV STAT 06/26/18 09:25 COMPREHENSIVE METABOLIC PN,CMP [CHEM] Stat LIPASE [CHEM] Stat 06/26/18 09:45 UA RFX [place] AND CULT IF INDIC [URIN] Stat - Assessment/Plan Last 24 Hours: My Active Orders 06/26/18 09:15 Sodium Chloride 0.9% [Normal Saline] 1,000 ml IV STAT 06/26/18 09:25 COMPREHENSIVE METABOLIC PN,CMP [CHEM] Stat LIPASE [CHEM] Stat 06/26/18 09:45 UA RFX [place] AND CULT IF INDIC [URIN] Stat
[2018-06-26 10:01] LABS: CHLORIDE,CL 102 mmol/L (98-107); SODIUM,NA 136 mmol/L (136-145)
== END 2018-06-26 10:46 | disposition home or self-care (01) ==
LOC: MW.ED 08:50
DX: E86.0 Dehydration (principal); E10.9 Type 1 diabetes mellitus without complications; E78.00 Pure hypercholesterolemia, unspecified; Z79.899 Other long term (current) drug therapy; J45.909 Unspecified asthma, uncomplicated; Z88.1 Allergy status to other antibiotic agents; Z88.2 Allergy status to sulfonamides; Z88.8 Allergy status to other drugs, medicaments and biological substances
CPT/HCPCS: 80053; 81003; 83690; 85025; 85610; 96361; 96374; 99284; J2405; J7040

== ENCOUNTER 2019-04-29 06:39 | Emergency (ER) | payer BC, OTHER ==
[2019-04-29] MEDS ORDERED: Sodium Chloride 0.9% 1,000 ML IV ONE (07:15)
[2019-04-29] MEDS ORDERED: Ondansetron 4 MG/2 ML SDV IVPUSH ONE (07:30)
--- NOTE | 2019-04-29 07:52 | EDM.PDOC ---
ED HPI GENERAL MEDICAL PROBLEM - General Chief Complaint: Genitourinary Problem Stated Complaint: PT SPOKE TO NURSE Time Seen by Provider: 04/29/19 07:52 Source of Information: Reports: Patient - History of Present Illness INITIAL COMMENTS - FREE TEXT/NARRATIVE: HISTORY AND PHYSICAL: History of present illness: [Patient with history of bladder pain syndrome presents with symptoms of bladder spasm dysuria frequency, she states she has large amount of yeast discharge vaginally no other symptoms today such as fever nausea vomiting chills sweats no chest pain shortness of breath headache dizziness or palpitation no bowel symptoms Patient has had symptoms above for nearly 2 weeks now Review of systems: As per history of present illness and below otherwise all systems reviewed and negative. Past medical history: As per history of present illness and as reviewed below otherwise noncontributory. Surgical history: As per history of present illness and as reviewed below otherwise noncontributory. Social history: No reported history of drug or alcohol abuse. Family history: As per history of present illness and as reviewed below otherwise noncontributory. Physical exam: HEENT: Atraumatic, normocephalic, pupils reactive, negative for conjunctival pallor or scleral icterus, mucous membranes moist, throat clear, neck supple, nontender, trachea midline. Lungs: Clear to auscultation, breath sounds equal bilaterally, chest nontender. Heart: S1S2, regular, negative for clicks, rubs, or JVD. Abdomen: Soft, nondistended, nontender. Negative for masses or hepatosplenomegaly. Negative for costovertebral tenderness. Pelvis: Stable nontender. Genitourinary: Deferred. Rectal: Deferred. Extremities: Atraumatic, negative for cords or calf pain. Neurovascular unremarkable. Neuro: Awake, alert, oriented. Cranial nerves II through XII unremarkable. Cerebellum unremarkable. Motor and sensory unremarkable throughout. Exam nonfocal. Diagnostics: [] Therapeutics: [difFlucan Flomax 9 Toradol ] Impression: [bladder Pain syndrome Yeast infection Uncontrolled diabetes] Definitive disposition and diagnosis as appropriate pending reevaluation and review of above. abdominal Pain Score (Numeric/FACES): 8 - Related Data Allergies Allergy/AdvReac Type Severity Reaction Status Date / Time amoxicillin Allergy Shortness Verified 04/29/19 06:54 of Breath cefdinir [From Omnicef] Allergy Shortness Verified 04/29/19 06:54 of Breath Penicillins Allergy Shortness Verified 04/29/19 06:54 of Breath pentosan polysulfate sodium Allergy Tachycardia Verified 04/29/19 06:54 [From Elmiron] prochlorperazine Allergy Shortness Verified 04/29/19 06:54 [From Compazine] of Breath Sulfa (Sulfonamide Allergy Shortness Verified 04/29/19 06:54 Antibiotics) of Breath sulfamethoxazole Allergy Shortness Verified 04/29/19 06:54 [From Bactrim] of Breath tetracycline Allergy Shortness Verified 04/29/19 06:54 of Breath trimethoprim [From Bactrim] Allergy Shortness Verified 04/29/19 06:54 of Breath Home Meds: Home Meds Budesonide/Formoterol [Symbicort 160-4.5 MCG] 2 puff INH DAILY 03/24/16 [History ] Insulin Lispro [Humalog] 1 pump SQ ASDIRECTED 03/24/16 [History] Losartan [Cozaar] 10 mg PO DAILY 03/24/16 [History] Past Medical History - Past Health History Medical/Surgical History: Denies Medical/Surgical History HEENT History: Reports: None Cardiovascular History: Reports: High Cholesterol Respiratory History: Reports: Asthma Gastrointestinal History: Reports: None Genitourinary History: Reports: Other (See Below) Other Genitourinary History: interstital cystitis per pt 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: Musculoskeletal History: Reports: None Other Musculoskeletal History: cervical dissectomy Neurological History: Reports: None Psychiatric History: Reports: None Endocrine/Metabolic History: Reports: Diabetes, Type I Hematologic History: Reports: None Immunologic History: Reports: None Oncologic (Cancer) History: Reports: None Dermatologic History: Reports: None - Infectious Disease History Infectious Disease History: Reports: Chicken Pox - Past Surgical History Head Surgeries/Procedures: Reports: None HEENT Surgical History: Reports: None Cardiovascular Surgical History: Reports: None Respiratory Surgical History: Reports: None GI Surgical History: Reports: None Female Surgical History: Reports: Section Endocrine Surgical History: Reports: None Neurological Surgical History: Reports: None Musculoskeletal Surgical History: Reports: None Oncologic Surgical History: Reports: None Dermatological Surgical History: Reports: None Social & Family History - Family History Family Medical History: Noncontributory - Tobacco Use Smoking Status *Q: Never Smoker - Caffeine Use Caffeine Use: Reports: Tea - Recreational Drug Use Recreational Drug Use: No ED ROS GENERAL - Review of Systems Review Of Systems: See Below ED EXAM, GENERAL - Physical Exam Exam: See Below Course - Vital Signs Last Recorded V/S: Last Vital Signs Temp 97.8 F 04/29/19 06:55 Pulse 126 H 04/29/19 06:55 Resp 18 04/29/19 06:55 BP 126/81 04/29/19 06:55 Pulse Ox 97 04/29/19 06:55 - Orders/Labs/Meds Orders: Active Orders 24 hr Category Date Time Status Sodium Chloride 0.9% [Normal Saline] 1,000 ml Med 04/29/19 07:15 Active IV STAT Medication Orders Sodium Chloride (Normal Saline) 1,000 mls @ 999 mls/hr IV STAT ONE Stop: 04/29/19 08:15 Last Admin: 04/29/19 07:36 Dose: 999 mls/hr Labs: Laboratory Tests 04/29/19 04/29/19 04/29/19 Range/Units 07:05 07:05 07:27 WBC 11.49 H (4.0-11.0) K/uL RBC 5.05 (4.30-5.90) M/uL Hgb 14.2 (12.0-16.0) g/dL Hct 40.8 (36.0-46.0) % MCV 80.8 (80.0-98.0) fL MCH 28.1 (27.0-32.0) pg MCHC 34.8 (31.0-37.0) g/dL RDW Std Deviation 37.7 (28.0-62.0) fl RDW Coeff of Nacho 13 (11.0-15.0) % Plt Count 298 (150-400) K/uL MPV 11.10 (7.40-12.00) fL Neut % (Auto) 56.2 (48.0-80.0) % Lymph % (Auto) 32.9 (16.0-40.0) % [place] % (Auto) 7.7 (0.0-15.0) % Eos % (Auto) 2.8 (0.0-7.0) % Baso % (Auto) 0.4 (0.0-1.5) % Neut # (Auto) 6.5 H (1.4-5.7) K/uL Lymph # (Auto) 3.8 H (0.6-2.4) K/uL [place] # (Auto) 0.9 H (0.0-0.8) K/uL Eos # (Auto) 0.3 (0.0-0.7) K/uL Baso # (Auto) 0.1 (0.0-0.1) K/uL Nucleated RBC % 0.0 /100WBC Nucleated RBCs # 0 K/uL Sodium (136-145) mmol/L Potassium (3.5-5.1) mmol/L Chloride (98-107) mmol/L Carbon Dioxide (21.0-32.0) mmol/L BUN (7.0-18.0) mg/dL Creatinine (0.6-1.0) mg/dL Est Cr Clr Drug Dosing mL/min Estimated GFR (MDRD) ml/min Glucose (74-106) mg/dL Calcium (8.5-10.1) mg/dL Total Bilirubin (0.2-1.0) mg/dL AST (15-37) IU/L ALT (14-63) IU/L Alkaline Phosphatase (46-116) U/L Total Protein (6.4-8.2) g/dL Albumin (3.4-5.0) g/dL Globulin (2.6-4.0) g/dL Albumin/Globulin Ratio (0.9-1.6) Lipase (73-393) U/L Urine Color YELLOW Urine Appearance CLEAR Urine pH 6.0 (5.0-8.0) Ur Specific [place] >= 1.030 (1.001-1.035) Urine Protein NEGATIVE (NEGATIVE) mg/dL Urine Glucose (UA) >=1000 (NEGATIVE) mg/dL Urine Ketones NEGATIVE (NEGATIVE) mg/dL Urine Occult Blood NEGATIVE (NEGATIVE) Urine Nitrite NEGATIVE (NEGATIVE) Urine Bilirubin NEGATIVE (NEGATIVE) Urine Urobilinogen 0.2 (<2.0) EU/dL Ur Leukocyte Esterase NEGATIVE (NEGATIVE) Urine HCG, Qual NEGATIVE (NEGATIVE) 04/29/19 Range/Units 07:27 WBC (4.0-11.0) K/uL RBC (4.30-5.90) M/uL Hgb (12.0-16.0) g/dL Hct (36.0-46.0) % MCV (80.0-98.0) fL MCH (27.0-32.0) pg MCHC (31.0-37.0) g/dL RDW Std Deviation (28.0-62.0) fl RDW Coeff of Nacho (11.0-15.0) % Plt Count (150-400) K/uL MPV (7.40-12.00) fL Neut % (Auto) (48.0-80.0) % Lymph % (Auto) (16.0-40.0) % [place] % (Auto) (0.0-15.0) % Eos % (Auto) (0.0-7.0) % Baso % (Auto) (0.0-1.5) % Neut # (Auto) (1.4-5.7) K/uL Lymph # (Auto) (0.6-2.4) K/uL [place] # (Auto) (0.0-0.8) K/uL Eos # (Auto) (0.0-0.7) K/uL Baso # (Auto) (0.0-0.1) K/uL Nucleated RBC % /100WBC Nucleated RBCs # K/uL Sodium 135 L (136-145) mmol/L Potassium 4.0 (3.5-5.1) mmol/L Chloride 102 (98-107) mmol/L Carbon Dioxide 23.8 (21.0-32.0) mmol/L BUN 12 (7.0-18.0) mg/dL Creatinine 0.8 (0.6-1.0) mg/dL Est Cr Clr Drug Dosing 70.24 mL/min Estimated GFR (MDRD) > 60.0 ml/min Glucose 302 H (74-106) mg/dL Calcium 8.5 (8.5-10.1) mg/dL Total Bilirubin 0.3 (0.2-1.0) mg/dL AST 14 L (15-37) IU/L ALT 26 (14-63) IU/L Alkaline Phosphatase 96 (46-116) U/L Total Protein 7.1 (6.4-8.2) g/dL Albumin 3.3 L (3.4-5.0) g/dL Globulin 3.8 (2.6-4.0) g/dL Albumin/Globulin Ratio 0.9 (0.9-1.6) Lipase 77 (73-393) U/L Urine Color Urine Appearance Urine pH (5.0-8.0) Ur Specific [place] (1.001-1.035) Urine Protein (NEGATIVE) mg/dL Urine Glucose (UA) (NEGATIVE) mg/dL Urine Ketones (NEGATIVE) mg/dL Urine Occult Blood (NEGATIVE) Urine Nitrite (NEGATIVE) Urine Bilirubin (NEGATIVE) Urine Urobilinogen (<2.0) EU/dL Ur Leukocyte Esterase (NEGATIVE) Urine HCG, Qual (NEGATIVE) Meds: Medications Generic Name Dose Route Start Last Admin Trade Name Freq PRN Reason Stop Dose Admin Sodium Chloride 1,000 mls @ 999 mls/hr 04/29/19 07:15 04/29/19 07:36 Normal Saline IV 04/29/19 08:15 999 mls/hr STAT ONE Administration Discontinued Medications Generic Name Dose Route Start Last Admin Trade Name Freq PRN Reason Stop Dose Admin Ondansetron HCl 8 mg 04/29/19 07:30 04/29/19 07:36 Zofran IVPUSH 04/29/19 07:31 8 mg ONETIME ONE Administration Departure - Departure Time of Disposition: 08:04 Disposition: Home, Self-Care 01 Condition: Good Clinical Impression: Encounter for medical screening examination, Vaginal yeast infection - Discharge Information Referrals: Fabienne Gonzalez [employer]PERVIS[employer]MENT [Primary Care Provider] - Forms: ED Department Discharge Additional Instructions: Medication as prescribed Return if symptoms persist or worsen Follow-up with urology and/or gynecology [facility] [address] [place] [id number] [facility] [address] [place] [id number] The following information is given to patients seen in the emergency department who are being discharged to home. This information is to outline your options for follow-up care. We provide all patients seen in our emergency department with a follow-up referral. The need for follow-up, as well as the timing and circumstances, are variable depending upon the specifics of your emergency department visit. If you don't have a primary care physician on staff, we will provide you with a referral. We always advise you to contact your personal physician following an emergency department visit to inform them of the circumstance of the visit and for follow-up with them and/or the need for any referrals to a consulting specialist. The emergency department will also refer you to a specialist when appropriate. This referral assures that you have the opportunity for follow-up care with a specialist. All of these measure are taken in an effort to provide you with optimal care, which includes your follow-up. Under all circumstances we always encourage you to contact your private physician who remains a resource for coordinating your care. When calling for follow-up care, please make the office aware that this follow-up is from your recent emergency room visit. If for any reason you are refused follow-up, please contact the [facility] emergency department at and asked to speak to the emergency department charge nurse. Sepsis Event Note - Evaluation Sepsis Screening Result: No Definite Risk - Focused Exam Vital Signs: Vital Signs Temp Pulse Resp BP Pulse Ox 04/29/19 06:55 97.8 F 126 H 18 126/81 97 Date Exam was Performed: 04/29/19 Time Exam was Performed: 08:04 - My Orders Last 24 Hours: My Active Orders 04/29/19 07:15 Sodium Chloride 0.9% [Normal Saline] 1,000 ml IV STAT - Assessment/Plan Last 24 Hours: My Active Orders 04/29/19 07:15 Sodium Chloride 0.9% [Normal Saline] 1,000 ml IV STAT
[2019-04-29 07:54] LABS: BLOOD UREA NITROGEN,BUN 12 mg/dL (7.0-18.0); CARBON DIOXIDE,CO2 23.8 mmol/L (21.0-32.0); CHLORIDE,CL 102 mmol/L (98-107); GLUCOSE RANDOM 302 mg/dL (74-106); LIPASE 77 U/L (73-393); SODIUM,NA 135 mmol/L (136-145)
[2019-04-29] MEDS ORDERED: Ketorolac 30 MG/ML SDV IM ONE (08:19)
[2019-04-29] MEDS ORDERED: Ketorolac 30 MG/ML SDV IVPUSH ONE (08:27)
[2019-04-29 08:29] VITALS: BP 124/79; PULSE 89
== END 2019-04-29 09:02 | disposition home or self-care (01) ==
LOC: MW.ED 06:39
DX: B37.3 Candidiasis of vulva and vagina (principal); E10.65 Type 1 diabetes mellitus with hyperglycemia; R39.89 Other symptoms and signs involving the genitourinary system; J45.909 Unspecified asthma, uncomplicated; Z88.0 Allergy status to penicillin; Z88.1 Allergy status to other antibiotic agents; Z88.2 Allergy status to sulfonamides; Z88.8 Allergy status to other drugs, medicaments and biological substances; Z79.4 Long term (current) use of insulin; Z79.51 Long term (current) use of inhaled steroids
CPT/HCPCS: 36415; 80053; 81003; 81025; 83690; 85025; 96361; 96374; 96375; 99283; J1885; J2405; J7030

== ENCOUNTER 2019-10-08 13:54 | Emergency (ER) | payer BC, OTHER ==
[2019-10-08] MEDS ORDERED: Sodium Chloride 0.9% 2.5 ML Syringe FLUSH PRN ×2 (15:01)
[2019-10-08] MEDS ORDERED: Sodium Chloride 0.9% 10 ML Syringe FLUSH PRN (15:01)
[2019-10-08] MEDS ORDERED: Ondansetron 4 MG/2 ML SDV IVPUSH ONE (15:01)
[2019-10-08] MEDS ORDERED: Sodium Chloride 0.9% 1,000 ML IV ONE (15:01)
[2019-10-08] MEDS ORDERED: Famotidine 20 MG/2 ML SDV IVPUSH ONE (15:01)
[2019-10-08] MEDS ORDERED: diphenhydrAMINE 50 MG/ML SDV IVPUSH ONE (15:50)
[2019-10-08] MEDS ORDERED: Metoclopramide 10 MG/2 ML SDV IVPUSH ONE (15:50)
[2019-10-08 15:59] LABS: BLOOD UREA NITROGEN,BUN 12 mg/dL (7.0-18.0); CARBON DIOXIDE,CO2 26.1 mmol/L (21.0-32.0); CHLORIDE,CL 99 mmol/L (98-107); GLUCOSE RANDOM 261 mg/dL (74-106); LIPASE 50 U/L (73-393); POTASSIUM,K 4.1 mmol/L (3.5-5.1); SODIUM,NA 134 mmol/L (136-145)
--- NOTE | 2019-10-08 16:48 | EDM.PDOC ---
ED HPI GENERAL MEDICAL PROBLEM - General Chief Complaint: Gastrointestinal Problem Time Seen by Provider: 10/08/19 14:39 - History of Present Illness INITIAL COMMENTS - FREE TEXT/NARRATIVE: History of present illness: Patient presents with nausea and vomiting that has been present for 2 days she is a type I diabetic and is concerned that she may be getting dehydrated she denies any frequency she has had no. No abdominal pain she has had some loose stools with this no foreign travel no untreated water consumption she has not had fevers no difficulty breathing cough or other symptoms nothing seems to make it better or worse she had a similar episode 2 weeks ago that resolved she attributed that to food poisoning Review of systems: As per history of present illness and below otherwise all systems reviewed and negative. Past medical history: As per history of present illness and as reviewed below otherwise noncontributory. Surgical history: As per history of present illness and as reviewed below otherwise noncontributory. Social history: No reported history of drug or alcohol abuse. Family history: As per history of present illness and as reviewed below otherwise noncontributory. Physical exam: HEENT: Atraumatic, normocephalic, pupils reactive, negative for conjunctival pallor or scleral icterus, mucous membranes moist, throat clear, neck supple, nontender, trachea midline. Lungs: Clear to auscultation, breath sounds equal bilaterally, chest nontender. Heart: S1S2, regular, negative for clicks, rubs, or JVD. Abdomen: Soft, nondistended, nontender. Negative for masses or hepatosplenomegaly. Negative for costovertebral tenderness. Pelvis: Stable nontender. Genitourinary: Deferred. Rectal: Deferred. Extremities: Atraumatic, negative for cords or calf pain. Neurovascular unremarkable. Neuro: Awake, alert, oriented. Cranial nerves II through XII unremarkable. Cerebellum unremarkable. Motor and sensory unremarkable throughout. Exam nonfocal. Diagnostics: [] Therapeutics: [] Impression: [] Plan: [facility] medicine reevaluate after lab studies. [] Definitive disposition and diagnosis as appropriate pending reevaluation and review of above. Abdomen Pain Score (Numeric/FACES): 7 - Related Data Allergies Allergy/AdvReac Type Severity Reaction Status Date / Time amoxicillin Allergy Shortness Verified 10/08/19 14:23 of Breath cefdinir [From Omnicef] Allergy Shortness Verified 10/08/19 14:23 of Breath Penicillins Allergy Shortness Verified 10/08/19 14:23 of Breath pentosan polysulfate sodium Allergy Tachycardia Verified 10/08/19 14:23 [From Elmiron] prochlorperazine Allergy Shortness Verified 10/08/19 14:23 [From Compazine] of Breath Sulfa (Sulfonamide Allergy Shortness Verified 10/08/19 14:23 Antibiotics) of Breath sulfamethoxazole Allergy Shortness Verified 10/08/19 14:23 [From Bactrim] of Breath tetracycline Allergy Shortness Verified 10/08/19 14:23 of Breath trimethoprim [From Bactrim] Allergy Shortness Verified 10/08/19 14:23 of Breath Home Meds: Home Meds Budesonide/Formoterol [Symbicort 160-4.5 MCG] 2 puff INH DAILY 03/24/16 [History] Insulin Lispro [Humalog] 1 pump SQ ASDIRECTED 03/24/16 [History] Losartan [Cozaar] 10 mg PO DAILY 03/24/16 [History] Ondansetron [Zofran ODT] 4 mg PO Q6H PRN 5 Days #12 tab.dis 10/08/19 [Rx] Past Medical History - Past Health History Medical/Surgical History: Denies Medical/Surgical History HEENT History: Reports: None Cardiovascular History: Reports: High Cholesterol Respiratory History: Reports: Asthma Gastrointestinal History: Reports: None Genitourinary History: Reports: Other (See Below) Other Genitourinary History: interstital cystitis per pt [employer]OR [employer]TER History: Reports: Musculoskeletal History: Reports: None Other Musculoskeletal History: cervical dissectomy Neurological History: Reports: None Psychiatric History: Reports: None Endocrine/Metabolic History: Reports: Diabetes, Type I Insulin Pump Model and Belt Conveyor Drier: TSlim Type of Insulin Used in Pump: Humalog Hematologic History: Reports: None Immunologic History: Reports: None Oncologic (Cancer) History: Reports: None Dermatologic History: Reports: None - Infectious Disease History Infectious Disease History: Reports: Chicken Pox - Past Surgical History Head Surgeries/Procedures: Reports: None HEENT Surgical History: Reports: None Cardiovascular Surgical History: Reports: None Respiratory Surgical History: Reports: None GI Surgical History: Reports: None Female Surgical History: Reports: Section Endocrine Surgical History: Reports: None Neurological Surgical History: Reports: None Musculoskeletal Surgical History: Reports: None Oncologic Surgical History: Reports: None Dermatological Surgical History: Reports: None Social & Family History - Family History Family Medical History: Noncontributory - Tobacco Use Smoking Status *Q: Never Smoker Second Hand Smoke Exposure: No - Caffeine Use Caffeine Use: Reports: Coffee, Energy Drinks, Soda, Tea - Recreational Drug Use Recreational Drug Use: No ED ROS GENERAL - Review of Systems Review Of Systems: See Below ED EXAM, GENERAL - Physical Exam Exam: See Below Course - Vital Signs Text/Narrative:: Patient is feeling better vital signs stable labs unremarkable discharge home with Zofran follow-up with primary care Last Recorded V/S: Last Vital Signs Temp 35.8 C L 10/08/19 14:21 Pulse 98 10/08/19 14:21 Resp 17 10/08/19 14:21 BP 150/87 H 10/08/19 14:21 Pulse Ox 97 10/08/19 14:21 - Orders/Labs/Meds Orders: Active Orders 24 hr Category Date Time Status Sodium Chloride 0.9% [Saline Flush] Med 10/08/19 15:01 Active 10 ml FLUSH ASDIRECTED PRN Sodium Chloride 0.9% [Saline Flush] Med 10/08/19 15:01 Active 2.5 ml FLUSH ASDIRECTED PRN Sodium Chloride 0.9% [Saline Flush] Med 10/08/19 15:01 Active 2.5 ml FLUSH ASDIRECTED PRN Saline Lock Insert [OM.PC] Stat Oth 10/08/19 15:01 Ordered Medication Orders Sodium Chloride (Saline Flush) 10 ml FLUSH ASDIRECTED PRN PRN Reason: Keep Vein Open Last Admin: 10/08/19 15:19 Dose: 10 ml Documented by: RADHA Sodium Chloride (Saline Flush) 2.5 ml FLUSH ASDIRECTED PRN PRN Reason: Keep Vein Open Last Admin: 10/08/19 15:19 Dose: 2.5 ml Documented by: RADHA Sodium Chloride (Saline Flush) 2.5 ml FLUSH ASDIRECTED PRN PRN Reason: Keep Vein Open Last Admin: 10/08/19 15:19 Dose: 2.5 ml Documented by: RADHA Labs: Laboratory Tests 10/08/19 10/08/19 10/08/19 Range/Units 14:25 14:25 15:14 WBC 11.17 H (4.0-11.0) K/uL RBC 4.99 (4.30-5.90) M/uL Hgb 13.9 (12.0-16.0) g/dL Hct 41.2 (36.0-46.0) % MCV 82.6 (80.0-98.0) fL MCH 27.9 (27.0-32.0) pg MCHC 33.7 (31.0-37.0) g/dL RDW Std Deviation 37.8 (28.0-62.0) fl RDW Coeff of Nacho 13 (11.0-15.0) % Plt Count 322 (150-400) K/uL MPV 11.50 (7.40-12.00) fL Neut % (Auto) 67.1 (48.0-80.0) % Lymph % (Auto) 24.8 (16.0-40.0) % [place] % (Auto) 6.5 (0.0-15.0) % Eos % (Auto) 1.3 (0.0-7.0) % Baso % (Auto) 0.3 (0.0-1.5) % Neut # (Auto) 7.5 H (1.4-5.7) K/uL Lymph # (Auto) 2.8 H (0.6-2.4) K/uL [place] # (Auto) 0.7 (0.0-0.8) K/uL Eos # (Auto) 0.2 (0.0-0.7) K/uL Baso # (Auto) 0.0 (0.0-0.1) K/uL Nucleated RBC % 0.0 /100WBC Nucleated RBCs # 0 K/uL Sodium (136-145) mmol/L Potassium (3.5-5.1) mmol/L Chloride (98-107) mmol/L Carbon Dioxide (21.0-32.0) mmol/L BUN (7.0-18.0) mg/dL Creatinine (0.6-1.0) mg/dL Est Cr Clr Drug Dosing mL/min Estimated GFR (MDRD) ml/min Glucose (74-106) mg/dL Calcium (8.5-10.1) mg/dL Total Bilirubin (0.2-1.0) mg/dL AST (15-37) IU/L ALT (14-63) IU/L Alkaline Phosphatase (46-116) U/L Total Protein (6.4-8.2) g/dL Albumin (3.4-5.0) g/dL Globulin (2.6-4.0) g/dL Albumin/Globulin Ratio (0.9-1.6) Lipase (73-393) U/L Urine Color YELLOW Urine Appearance CLEAR Urine pH 7.0 (5.0-8.0) Ur Specific [place] 1.020 (1.001-1.035) Urine Protein NEGATIVE (NEGATIVE) mg/dL Urine Glucose (UA) 250 H (NEGATIVE) mg/dL Urine Ketones NEGATIVE (NEGATIVE) mg/dL Urine Occult Blood NEGATIVE (NEGATIVE) Urine Nitrite NEGATIVE (NEGATIVE) Urine Bilirubin NEGATIVE (NEGATIVE) Urine Urobilinogen 0.2 (<2.0) EU/dL Ur Leukocyte Esterase NEGATIVE (NEGATIVE) Urine HCG, Qual NEGATIVE (NEGATIVE) 10/08/19 Range/Units 15:14 WBC (4.0-11.0) K/uL RBC (4.30-5.90) M/uL Hgb (12.0-16.0) g/dL Hct (36.0-46.0) % MCV (80.0-98.0) fL MCH (27.0-32.0) pg MCHC (31.0-37.0) g/dL RDW Std Deviation (28.0-62.0) fl RDW Coeff of Nacho (11.0-15.0) % Plt Count (150-400) K/uL MPV (7.40-12.00) fL Neut % (Auto) (48.0-80.0) % Lymph % (Auto) (16.0-40.0) % [place] % (Auto) (0.0-15.0) % Eos % (Auto) (0.0-7.0) % Baso % (Auto) (0.0-1.5) % Neut # (Auto) (1.4-5.7) K/uL Lymph # (Auto) (0.6-2.4) K/uL [place] # (Auto) (0.0-0.8) K/uL Eos # (Auto) (0.0-0.7) K/uL Baso # (Auto) (0.0-0.1) K/uL Nucleated RBC % /100WBC Nucleated RBCs # K/uL Sodium 134 L (136-145) mmol/L Potassium 4.1 (3.5-5.1) mmol/L Chloride 99 (98-107) mmol/L Carbon Dioxide 26.1 (21.0-32.0) mmol/L BUN 12 (7.0-18.0) mg/dL Creatinine 0.8 (0.6-1.0) mg/dL Est Cr Clr Drug Dosing 70.24 mL/min Estimated GFR (MDRD) > 60.0 ml/min Glucose 261 H (74-106) mg/dL Calcium 8.9 (8.5-10.1) mg/dL Total Bilirubin 0.2 (0.2-1.0) mg/dL AST 27 (15-37) IU/L ALT 37 (14-63) IU/L Alkaline Phosphatase 109 (46-116) U/L Total Protein 7.0 (6.4-8.2) g/dL Albumin 3.3 L (3.4-5.0) g/dL Globulin 3.7 (2.6-4.0) g/dL Albumin/Globulin Ratio 0.9 (0.9-1.6) Lipase 50 L (73-393) U/L Urine Color Urine Appearance Urine pH (5.0-8.0) Ur Specific [place] (1.001-1.035) Urine Protein (NEGATIVE) mg/dL Urine Glucose (UA) (NEGATIVE) mg/dL Urine Ketones (NEGATIVE) mg/dL Urine Occult Blood (NEGATIVE) Urine Nitrite (NEGATIVE) Urine Bilirubin (NEGATIVE) Urine Urobilinogen (<2.0) EU/dL Ur Leukocyte Esterase (NEGATIVE) Urine HCG, Qual (NEGATIVE) Meds: Medications Generic Name Dose Route Start Last Admin Trade Name Freq PRN Reason Stop Dose Admin Sodium Chloride 10 ml 10/08/19 15:10/08/19 15:19 Saline Flush FLUSH 10 ml ASDIRECTED PRN Administration Keep Vein Open Sodium Chloride 2.5 ml 10/08/19 15:01 10/08/19 15:19 Saline Flush FLUSH 2.5 ml ASDIRECTED PRN Administration Keep Vein Open Sodium Chloride 2.5 ml 10/08/19 15:01 10/08/19 15:19 Saline Flush FLUSH 2.5 ml ASDIRECTED PRN Administration Keep Vein Open Discontinued Medications Generic Name Dose Route Start Last Admin Trade Name Freq PRN Reason Stop Dose Admin Diphenhydramine HCl 25 mg 10/08/19 15:50 10/08/19 16:26 Benadryl IVPUSH 10/08/19 15:51 25 mg ONETIME ONE Administration Famotidine 20 mg 10/08/19 15:01 10/08/19 15:17 Pepcid IVPUSH 10/08/19 15:02 20 mg ONETIME ONE Administration Sodium Chloride 1,000 mls @ 999 mls/hr 10/08/19 15:01 10/08/19 15:14 Normal Saline IV 10/08/19 16:01 999 mls/hr BOLUS ONE Administration Metoclopramide HCl 10 mg 10/08/19 15:50 10/08/19 16:26 Reglan IVPUSH 10/08/19 15:51 10 mg ONETIME ONE Administration Ondansetron HCl 4 mg 10/08/19 15:01 10/08/19 15:16 Zofran IVPUSH 10/08/19 15:02 4 mg ONETIME ONE Administration Departure - Departure Time of Disposition: 16:45 Disposition: Home, Self-Care 01 Condition: Good Clinical Impression: Nausea and vomiting, Vomiting - Discharge Information *PRESCRIPTION DRUG MONITORING PROGRAM REVIEWED*: Not Applicable *COPY OF PRESCRIPTION DRUG MONITORING REPORT IN PATIENT IRMA: Not Applicable Prescriptions: Ondansetron [Zofran ODT] 4 mg PO Q6H PRN 5 Days #12 tab.dis PRN Reason: Nausea Instructions: Nausea and Vomiting, Adult, [id number] Referrals: Fabienne Gonzalez [employer] [Primary Care Provider] - Forms: ED Department Discharge Additional Instructions: The following information is given to patients seen in the emergency department who are being discharged to home. This information is to outline your options for follow-up care. We provide all patients seen in our emergency department with a follow-up referral. The need for follow-up, as well as the timing and circumstances, are variable depending upon the specifics of your emergency department visit. If you don't have a primary care physician on staff, we will provide you with a referral. We always advise you to contact your personal physician following an emergency department visit to inform them of the circumstance of the visit and for follow-up with them and/or the need for any referrals to a consulting spec ialist. The emergency department will also refer you to a specialist when appropriate. This referral assures that you have the opportunity for follow-up care with a specialist. All of these measure are taken in an effort to provide you with optimal care, which includes your follow-up. Under all circumstances we always encourage you to contact your private physician who remains a resource for coordinating your care. When calling for follow-up care, please make the office aware that this follow-up is from your recent emergency room visit. If for any reason you are refused follow-up, please contact the [facility] Emergency Department at and asked to speak to the emergency department charge nurse. [facility] [address] [place] [address] [place] [address] Sepsis Event Note (ED) - Evaluation Sepsis Screening Result: No Definite Risk - Focused Exam Vital Signs: Vital Signs Temp Pulse Resp BP Pulse Ox 10/08/19 14:21 35.8 C L 98 17 150/87 H 97 - My Orders Last 24 Hours: My Active Orders 10/08/19 15:01 Sodium Chloride 0.9% [Saline Flush] 10 ml FLUSH ASDIRECTED PRN Sodium Chloride 0.9% [Saline Flush] 2.5 ml FLUSH ASDIRECTED PRN Sodium Chloride 0.9% [Saline Flush] 2.5 ml FLUSH ASDIRECTED PRN Saline Lock Insert [OM.PC] Stat - Assessment/Plan Last 24 Hours: My Active Orders 10/08/19 15:01 Sodium Chloride 0.9% [Saline Flush] 10 ml FLUSH ASDIRECTED PRN Sodium Chloride 0.9% [Saline Flush] 2.5 ml FLUSH ASDIRECTED PRN Sodium Chloride 0.9% [Saline Flush] 2.5 ml FLUSH ASDIRECTED PRN Saline Lock Insert [OM.PC] Stat
[2019-10-08 16:49] VITALS: BP 137/92; PULSE 95
== END 2019-10-08 16:54 | disposition home or self-care (01) ==
LOC: MW.ED 13:54
DX: R11.2 Nausea with vomiting, unspecified (principal); E10.9 Type 1 diabetes mellitus without complications; J45.909 Unspecified asthma, uncomplicated; Z88.1 Allergy status to other antibiotic agents; Z88.0 Allergy status to penicillin; Z88.2 Allergy status to sulfonamides; Z88.8 Allergy status to other drugs, medicaments and biological substances
CPT/HCPCS: 80053; 81003; 81025; 83690; 85025; 96361; 96374; 96375; 99284; J1200; J2405; J2765; J7030; S0028; 99283; J3490

== ENCOUNTER 2019-10-11 01:19 | Emergency (ER) | payer BC ==
[2019-10-11] MEDS ORDERED: Sodium Chloride 0.9% 2.5 ML Syringe FLUSH PRN (01:30)
[2019-10-11] MEDS ORDERED: Sodium Chloride 0.9% 10 ML Syringe FLUSH PRN (01:30)
--- NOTE | 2019-10-11 01:32 | EDM.PDOC ---
ED HPI GENERAL MEDICAL PROBLEM - General Chief Complaint: Abdominal Pain Stated Complaint: ABDOMINAL PAIN Time Seen by Provider: 10/11/19 01:30 Source of Information: Reports: Patient History Limitations: Reports: No Limitations - History of Present Illness INITIAL COMMENTS - FREE TEXT/NARRATIVE: 44-year-old female with history of type 1 diabetes presents with chest pain and abdominal pain. Pain is described as burning sensation, severe in intensity, localized to the epigastrium and radiates to the midsternum and right upper quadrant, constant, progressively worsening. Associated with vomiting 3 days ago but she has not vomited since. She was seen in the ER on 10/08/2019 for nausea, vomiting for 2 days. She also noted that she had burning substernal pain at that time. During her last ED visit, she was given Reglan, Pepcid, Zofran, with minimal relief. She denies fever, chills, dyspnea, diarrhea, dysuria, rectal bleeding. Of note, she has been taking ibuprofen 800 mg daily since May for a injured right wrist. Tonight she only took Tylenol. She currently rates her burning pain as 1/10. She doesn't smoke. ROS: A 10-point review of systems, other than pertinent positives and negatives as stated per HPI, is otherwise negative PHYSICAL EXAM General: AOx4, GCS = 15, No distress HEENT: dry mucous membrane Neck: supple, no meningismus, no Kernig or Brudzinski Cardiac: S1S2 tachycardia Respiratory: CTAB, no crackles or rales, no wheezing Abdomen: Soft, epigastric tenderness, get a Mcintyre sign, No rebound or guarding, nondistended, no pulsatile mass. Back: nontender Musculoskeletal: NVI distally, no deformity Neuro: No focal deficits. Epigastric Pain Score (Numeric/FACES): 9 - Related Data Allergies Allergy/AdvReac Type Severity Reaction Status Date / Time amoxicillin Allergy Shortness Verified 10/11/19 01:41 of Breath cefdinir [From Omnicef] Allergy Shortness Verified 10/11/19 01:41 of Breath Penicillins Allergy Shortness Verified 10/11/19 01:41 of Breath pentosan polysulfate sodium Allergy Tachycardia Verified 10/11/19 01:41 [From Elmiron] prochlorperazine Allergy Shortness Verified 10/11/19 01:41 [From Compazine] of Breath Sulfa (Sulfonamide Allergy Shortness Verified 10/11/19 01:41 Antibiotics) of Breath sulfamethoxazole Allergy Shortness Verified 10/11/19 01:41 [From Bactrim] of Breath tetracycline Allergy Shortness Verified 10/11/19 01:41 of Breath trimethoprim [From Bactrim] Allergy Shortness Verified 10/11/19 01:41 of Breath Home Meds: Home Meds Budesonide/Formoterol [Symbicort 160-4.5 MCG] 2 puff INH DAILY 03/24/16 [History] Insulin Lispro [Humalog] 1 pump SQ ASDIRECTED 03/24/16 [History] Losartan [Cozaar] 10 mg PO DAILY 03/24/16 [History] Ondansetron [Zofran ODT] 4 mg PO Q6H PRN 5 Days #12 tab.dis 10/08/19 [Rx] Past Medical History - Past Health History Medical/Surgical History: Denies Medical/Surgical History HEENT History: Reports: None Cardiovascular History: Reports: High Cholesterol Respiratory History: Reports: Asthma Gastrointestinal History: Reports: None Genitourinary History: Reports: Other (See Below) Other Genitourinary History: interstital cystitis 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 pt 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: Musculoskeletal History: Reports: None Other Musculoskeletal History: cervical dissectomy Neurological History: Reports: None Psychiatric History: Reports: None Endocrine/Metabolic History: Reports: Diabetes, Type I 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 Hematologic History: Reports: None Immunologic History: Reports: None Oncologic (Cancer) History: Reports: None Dermatologic History: Reports: None - Infectious Disease History Infectious Disease History: Reports: Chicken Pox - Past Surgical History Head Surgeries/Procedures: Reports: None HEENT Surgical History: Reports: None Cardiovascular Surgical History: Reports: None Respiratory Surgical History: Reports: None GI Surgical History: Reports: None Female Surgical History: Reports: Section Endocrine Surgical History: Reports: None Neurological Surgical History: Reports: None Musculoskeletal Surgical History: Reports: None Oncologic Surgical History: Reports: None Dermatological Surgical History: Reports: None Social & Family History - Family History Family Medical History: Noncontributory - Caffeine Use Caffeine Use: Reports: Coffee, Energy Drinks, Soda, Tea ED ROS GENERAL - Review of Systems Review Of Systems: Comprehensive ROS is negative, except as noted in HPI. ED EXAM, GI/ABD - Physical Exam Exam: See Below (See dictation) EKG INTERPRETATION EKG Interpretation Comments: 115 Bpm, sinus tach, normal QRS interval, STEMI on II/III,AVF with reciprocal depressions. EKG and rhythm strip interpreted by me at 0208 Course - Vital Signs Last Recorded V/S: Last Vital Signs Temp 96.7 F L 10/11/19 01:29 Pulse 106 H 10/11/19 01:29 Resp 16 10/11/19 01:29 BP 156/100 H 10/11/19 01:29 Pulse Ox 98 10/11/19 01:29 - Orders/Labs/Meds Orders: Active Orders 24 hr Category Date Time Status Cardiac Monitoring [RC] STAT Care 10/11/19 02:17 Active Cardiac Monitoring [RC] STAT Care 10/11/19 02:17 Active EKG 12 Lead [EKG Documentation Completion] [RC] STAT Care 10/11/19 01:53 Active Oxygen Therapy, ED [RC] ASDIRECTED Care 10/11/19 02:17 Active Oxygen Therapy, ED [RC] ASDIRECTED Care 10/11/19 02:17 Active Chest 1V Frontal [CR] Stat Exams 10/11/19 02:29 Taken Sodium Chloride 0.9% [Normal Saline] 1,000 ml Med 10/11/19 01:45 Active IV ASDIRECTED Sodium Chloride 0.9% [Saline Flush] Med 10/11/19 01:30 Active 10 ml FLUSH ASDIRECTED PRN Sodium Chloride 0.9% [Saline Flush] Med 10/11/19 01:30 Active 2.5 ml FLUSH ASDIRECTED PRN Saline Lock Insert [OM.PC] Stat Oth 10/11/19 01:30 Ordered Medication Orders Sodium Chloride (Normal Saline) 1,000 mls @ 999 mls/hr IV ASDIRECTED MICHELLE Last Admin: 10/11/19 02:07 Dose: 999 mls/hr Documented by: BREWKRI Sodium Chloride (Saline Flush) 10 ml FLUSH ASDIRECTED PRN PRN Reason: Keep Vein Open Sodium Chloride (Saline Flush) 2.5 ml FLUSH ASDIRECTED PRN PRN Reason: Keep Vein Open Labs: Laboratory Tests 10/11/19 10/11/19 10/11/19 Range/Units 01:40 01:40 02:00 WBC 16.18 H (4.0-11.0) K/uL RBC 5.34 (4.30-5.90) M/uL Hgb 15.0 (12.0-16.0) g/dL Hct 44.3 (36.0-46.0) % MCV 83.0 (80.0-98.0) fL MCH 28.1 (27.0-32.0) pg MCHC 33.9 (31.0-37.0) g/dL RDW Std Deviation 37.9 (28.0-62.0) fl RDW Coeff of Nacho 13 (11.0-15.0) % Plt Count 348 (150-400) K/uL MPV 11.50 (7.40-12.00) fL Neut % (Auto) 54.1 (48.0-80.0) % Lymph % (Auto) 38.4 (16.0-40.0) % Kimball % (Auto) 5.3 (0.0-15.0) % Eos % (Auto) 2.0 (0.0-7.0) % Baso % (Auto) 0.2 (0.0-1.5) % Neut # (Auto) 8.7 H (1.4-5.7) K/uL Lymph # (Auto) 6.2 H (0.6-2.4) K/uL Kimball # (Auto) 0.9 H (0.0-0.8) K/uL Eos # (Auto) 0.3 (0.0-0.7) K/uL Baso # (Auto) 0.0 (0.0-0.1) K/uL Nucleated RBC % 0.0 /100WBC Nucleated RBCs # 0 K/uL Sodium (136-145) mmol/L Potassium (3.5-5.1) mmol/L Chloride (98-107) mmol/L Carbon Dioxide (21.0-32.0) mmol/L BUN (7.0-18.0) mg/dL Creatinine (0.6-1.0) mg/dL Est Cr Clr Drug Dosing Estimated GFR (MDRD) ml/min Glucose (74-106) mg/dL Calcium (8.5-10.1) mg/dL Total Bilirubin (0.2-1.0) mg/dL AST (15-37) IU/L ALT (14-63) IU/L Alkaline Phosphatase (46-116) U/L Troponin I (0.000-0.056) ng/mL Total Protein (6.4-8.2) g/dL Albumin (3.4-5.0) g/dL Globulin (2.6-4.0) g/dL Albumin/Globulin Ratio (0.9-1.6) Lipase (73-393) U/L Urine Color YELLOW Urine Appearance HAZY Urine pH 6.5 (5.0-8.0) Ur Specific [place] 1.015 (1.001-1.035) Urine Protein NEGATIVE (NEGATIVE) mg/dL Urine Glucose (UA) >=1000 (NEGATIVE) mg/dL Urine Ketones NEGATIVE (NEGATIVE) mg/dL Urine Occult Blood NEGATIVE (NEGATIVE) Urine Nitrite NEGATIVE (NEGATIVE) Urine Bilirubin NEGATIVE (NEGATIVE) Urine Urobilinogen 0.2 (<2.0) EU/dL Ur Leukocyte Esterase NEGATIVE (NEGATIVE) Urine HCG, Qual NEGATIVE (NEGATIVE) 10/11/19 10/11/19 Range/Units 02:00 02:00 WBC (4.0-11.0) K/uL RBC (4.30-5.90) M/uL Hgb (12.0-16.0) g/dL Hct (36.0-46.0) % MCV (80.0-98.0) fL MCH (27.0-32.0) pg MCHC (31.0-37.0) g/dL RDW Std Deviation (28.0-62.0) fl RDW Coeff of Nacho (11.0-15.0) % Plt Count (150-400) K/uL MPV (7.40-12.00) fL Neut % (Auto) (48.0-80.0) % Lymph % (Auto) (16.0-40.0) % Kimball % (Auto) (0.0-15.0) % Eos % (Auto) (0.0-7.0) % Baso % (Auto) (0.0-1.5) % Neut # (Auto) (1.4-5.7) K/uL Lymph # (Auto) (0.6-2.4) K/uL Kimball # (Auto) (0.0-0.8) K/uL Eos # (Auto) (0.0-0.7) K/uL Baso # (Auto) (0.0-0.1) K/uL Nucleated RBC % /100WBC Nucleated RBCs # K/uL Sodium 133 L (136-145) mmol/L Potassium 3.9 (3.5-5.1) mmol/L Chloride 97 L (98-107) mmol/L Carbon Dioxide 27.6 (21.0-32.0) mmol/L BUN 10 (7.0-18.0) mg/dL Creatinine 1.0 (0.6-1.0) mg/dL Est Cr Clr Drug Dosing TNP Estimated GFR (MDRD) 60.0 ml/min Glucose 408 H (74-106) mg/dL Calcium 9.6 (8.5-10.1) mg/dL Total Bilirubin 0.2 (0.2-1.0) mg/dL AST 23 (15-37) IU/L ALT 33 (14-63) IU/L Alkaline Phosphatase 127 H (46-116) U/L Troponin I 1.427 H* (0.000-0.056) ng/mL Total Protein 7.7 (6.4-8.2) g/dL Albumin 3.6 (3.4-5.0) g/dL Globulin 4.1 H (2.6-4.0) g/dL Albumin/Globulin Ratio 0.9 (0.9-1.6) Lipase 65 L (73-393) U/L Urine Color Urine Appearance Urine pH (5.0-8.0) Ur Specific [place] (1.001-1.035) Urine Protein (NEGATIVE) mg/dL Urine Glucose (UA) (NEGATIVE) mg/dL Urine Ketones (NEGATIVE) mg/dL Urine Occult Blood (NEGATIVE) Urine Nitrite (NEGATIVE) Urine Bilirubin (NEGATIVE) Urine Urobilinogen (<2.0) EU/dL Ur Leukocyte Esterase (NEGATIVE) Urine HCG, Qual (NEGATIVE) Meds: Medications Generic Name Dose Route Start Last Admin Trade Name Dhaval PRN Reason Stop Dose Admin Sodium Chloride 1,000 mls @ 999 mls/hr 10/11/19 01:45 10/11/19 02:07 Normal Saline IV 999 mls/hr ASDIRECTED MICHELLE Administration Sodium Chloride 10 ml 10/11/19 01:30 Saline Flush FLUSH ASDIRECTED PRN Keep Vein Open Sodium Chloride 2.5 ml 10/11/19 01:30 Saline Flush FLUSH ASDIRECTED PRN Keep Vein Open Discontinued Medications Generic Name Dose Route Start Last Admin Trade Name Dhaval PRN Reason Stop Dose Admin Aspirin Confirm 10/11/19 02:23 Aspirin Administered 10/11/19 02:24 Dose 324 mg .ROUTE .STK-MED ONE Al Hydroxide/Mg Hydroxide 15 0 ml 10/11/19 01:41 10/11/19 01:56 ml/ Metoclopramide HCl 5 mg/ PO 10/11/19 01:42 1 each Lidocaine HCl 5 ml ONETIME ONE Administration Heparin Sodium (Porcine) Confirm 10/11/19 02:22 10/11/19 02:37 Heparin Sodium Administered 10/11/19 02:23 4,000 units Dose Administration 5,000 units .ROUTE .STK-MED ONE Pantoprazole Sodium 40 mg/ 20 mls @ 420 mls/hr 10/11/19 01:41 10/11/19 02:07 Sodium Chloride IVPUSH 10/11/19 01:43 420 mls/hr ONETIME ONE Administration Nitroglycerin/Dextrose Confirm 10/11/19 02:23 10/11/19 02:38 Nitroglycerin 25 Mg/D5w 250 Ml Administered 10/11/19 02:24 25 mls/hr Dose Administration 25 mg in 250 mls @ as directed .ROUTE .STK-MED ONE Heparin Sodium/Sodium Chloride Confirm 10/11/19 02:23 10/11/19 02:37 Heparin-1/2ns 25,000 Units/500 Administered 10/11/19 02:24 12 mls/hr Dose Administration 25,000 unit in 500 mls @ as directed IV .STK-MED ONE Morphine Sulfate Confirm 10/11/19 02:23 10/11/19 02:38 Morphine Administered 10/11/19 02:24 Not Given Dose 2 mg .ROUTE .STK-MED ONE Tenecteplase Confirm 10/11/19 02:24 10/11/19 02:39 Tnkase Administered 10/11/19 02:25 50 mg Dose Administration 50 mg .ROUTE .STK-MED ONE - Re-Assessments/Exams Free Text/Narrative Re-Assessment/Exam: 10/11/19 02:09 - STEMI activated 10/11/19 02:15 - patient will require emergent transfer to outside facility for the need of higher level of care not available at this facility, and the need for design center consultant services unavailable at this facility. Any emergency conditions have been stabilized to the ability of the ED prior to the transfer. [place] Gallardo cardiology Dr. Gill. 10/11/19 02:20 - d/w Dr. Gill, will accept patient transfer for STEMI. He recommends TNK. Patient to be given ASA 324mg, Heparin bolus/drip, TNK. Patient states her CP is rated 1/10 at this time. 10/11/19 02:40 - Flight crew here transporting patient. 10/11/19 02:49 - Troponin resulted at 1.427 Departure - Departure Time of Disposition: 02:43 Disposition: DC/Tfer to Other 70 Condition: Fair Clinical Impression: STEMI (ST elevation myocardial infarction) - Discharge Information *PRESCRIPTION DRUG MONITORING PROGRAM REVIEWED*: Not Applicable *COPY OF PRESCRIPTION DRUG MONITORING REPORT IN PATIENT IRMA: Not Applicable Referrals: Fabienne Gonzalez SENIOR MANAGER [employer] [Primary Care Provider] - Forms: ED Department Discharge Critical Care Note - Critical Care Note Total Time (mins): 40 Comments: Critical Care: The high probability of sudden, clinically significant deterioration in the patient's condition required the highest level of my preparedness to intervene urgently. The services I provided to this patient were to treat and/or prevent clinically significant deterioration. Services included the following: chart data review, reviewing nursing notes and/or old charts, documentation time, design center consultant collaboration regarding findings and treatment options, medication orders and management, direct patient care, vital sign assessments and ordering, interpreting and reviewing diagnostic studies/lab tests. Aggregate critical care time includes only time during which I was engaged in work directly related to the patient's care, as described above, whether at the bedside or elsewhere in the Emergency Department. It did not include time spent performing other reported procedures or the services of residents, students, nurses or physician assistants. Frequent interventions and/or frequent repeat evaluations were required as well as counseling and coordination of care regarding prognosis, treatments, and discussions with patient, staff and consultants. Critical Care (excluding other procedures): 40 minutes Sepsis Event Note (ED) - Focused Exam Vital Signs: Vital Signs Temp Pulse Resp BP Pulse Ox 10/11/19 01:29 96.7 F L 106 H 16 156/100 H 98 - My Orders Last 24 Hours: My Active Orders 10/11/19 01:30 Sodium Chloride 0.9% [Saline Flush] 10 ml FLUSH ASDIRECTED PRN Sodium Chloride 0.9% [Saline Flush] 2.5 ml FLUSH ASDIRECTED PRN Saline Lock Insert [OM.PC] Stat 10/11/19 01:45 Sodium Chloride 0.9% [Normal Saline] 1,000 ml IV ASDIRECTED 10/11/19 01:53 EKG 12 Lead [EKG Documentation Completion] [RC] STAT 10/11/19 02:17 Cardiac Monitoring [RC] STAT Cardiac Monitoring [RC] STAT Oxygen Therapy, ED [RC] ASDIRECTED Oxygen Therapy, ED [RC] ASDIRECTED 10/11/19 02:29 Chest 1V Frontal [CR] Stat - Assessment/Plan Last 24 Hours: My Active Orders 10/11/19 01:30 Sodium Chloride 0.9% [Saline Flush] 10 ml FLUSH ASDIRECTED PRN Sodium Chloride 0.9% [Saline Flush] 2.5 ml FLUSH ASDIRECTED PRN Saline Lock Insert [OM.PC] Stat 10/11/19 01:45 Sodium Chloride 0.9% [Normal Saline] 1,000 ml IV ASDIRECTED 10/11/19 01:53 EKG 12 Lead [EKG Documentation Completion] [RC] STAT 10/11/19 02:17 Cardiac Monitoring [RC] STAT Cardiac Monitoring [RC] STAT Oxygen Therapy, ED [RC] ASDIRECTED Oxygen Therapy, ED [RC] ASDIRECTED 10/11/19 02:29 Chest 1V Frontal [CR] Stat
[2019-10-11 01:41] VITALS: BP 156/100; PULSE 106
[2019-10-11] MEDS ORDERED: Sodium Chloride 0.9% 1,000 ML IV SCH (01:45)
[2019-10-11] MEDS: Alum Hydrox/Mag Hydrox/Simeth 15 ML, Metoclopramide 5 MG, Lidocaine 2% 5 ML PO ONE ×6 (01:56→02:52)
[2019-10-11] MEDS: Pantoprazole 40 MG in Sodium Chloride 0.9% 20 ML IVPUSH ONE ×2 (02:07→03:35)
[2019-10-11] MEDS ORDERED: Heparin Sodium 5,000 Units/ML Vial ONE (02:22)
[2019-10-11] MEDS ORDERED: Heparin Sod,Pork In 0.45% Nacl 25,000 UNIT/500 ML IV.SOLN IV ONE (02:23)
[2019-10-11] MEDS ORDERED: Aspirin 81 MG Tab.Chew ONE (02:23)
[2019-10-11] MEDS ORDERED: Morphine 2 MG/ML SYRINGE ONE (02:23)
[2019-10-11] MEDS ORDERED: Nitroglycerin/D5W 25 MG/250 ML BOTTLE ONE (02:23)
[2019-10-11] MEDS ORDERED: Tenecteplase 50 MG Kit ONE (02:24)
[2019-10-11 02:43] LABS: BLOOD UREA NITROGEN,BUN 10 mg/dL (7.0-18.0); CARBON DIOXIDE,CO2 27.6 mmol/L (21.0-32.0); CHLORIDE,CL 97 mmol/L (98-107); GLUCOSE RANDOM 408 mg/dL (74-106); LIPASE 65 U/L (73-393); POTASSIUM,K 3.9 mmol/L (3.5-5.1); SODIUM,NA 133 mmol/L (136-145)
--- NOTE | 2019-10-11 03:27 | CR ---
INDICATION: Chest pain TECHNIQUE: Portable upright AP view of the chest COMPARISON: Two-view chest radiograph 06/09/2011 FINDINGS: The lungs are clear. There is no pleural effusion or pneumothorax. The cardiomediastinal silhouette is normal. The visualized osseous structures are unremarkable. IMPRESSION: No acute intrathoracic process. Dictated by Henry Harris MD @ Oct 11 2019 3:25AM Signed by Dr. Henry Harris @ Oct 11 2019 3:26AM
== END 2019-10-11 02:50 | disposition other institution (70) ==
LOC: MW.ED 01:19
DX: I21.3 ST elevation (STEMI) myocardial infarction of unspecified site (principal); J45.909 Unspecified asthma, uncomplicated; E10.9 Type 1 diabetes mellitus without complications; R00.0 Tachycardia, unspecified; Z88.1 Allergy status to other antibiotic agents; Z88.0 Allergy status to penicillin; Z88.2 Allergy status to sulfonamides; Z88.8 Allergy status to other drugs, medicaments and biological substances; Z79.899 Other long term (current) drug therapy
CPT/HCPCS: 36415; 71045; 80053; 81003; 81025; 83690; 84484; 85025; 92977; 93005; 96365; 96375; 99285; A9270; J1644; J3101; J3490; 99291; C9113; J7030

== ENCOUNTER 2020-02-12 07:17 | Emergency (ER) | payer BC, OTHER ==
[2020-02-12] MEDS ORDERED: Sodium Chloride 0.9% 10 ML Syringe FLUSH PRN (07:34)
[2020-02-12] MEDS ORDERED: Sodium Chloride 0.9% 2.5 ML Syringe FLUSH PRN (07:34)
[2020-02-12] MEDS ORDERED: Lactated Ringers 1,000 ML IV ONE (07:35)
[2020-02-12] MEDS ORDERED: Ondansetron 4 MG/2 ML SDV IVPUSH ONE (07:37)
--- NOTE | 2020-02-12 07:53 | EDM.PDOC ---
ED HPI GENERAL MEDICAL PROBLEM - General Chief Complaint: Gastrointestinal Problem Stated Complaint: FOOD POISONING Time Seen by Provider: 02/12/20 07:24 Source of Information: Reports: Patient, Old Records History Limitations: Reports: No Limitations - History of Present Illness INITIAL COMMENTS - FREE TEXT/NARRATIVE: This is a 45-year-old female with a past medical history of myocardial infarction status post stenting in September 2019 and diabetes mellitus type 1 presenting with nausea and vomiting. 3-day history of the symptoms. She states that she ate a homemade egg salad sandwich and then about 30 minutes later began having multiple episodes of nonbloody emesis and diarrhea. The symptoms have tapered off but she is concerned that she might be dehydrated because she noted that her heart rate was fast. No sick contacts at home, no fever, no hematemesis, coffee-ground emesis, or bloody stools. No recent travel or camping, no history of drinking from an untreated water supply. She has had some fleeting epigastric abdominal pain which is quite mild but she is not having any of this right now. ROS: A 10-point review of systems was negative, except as noted in the HPI (or in the ROS section of this note). Past medical history: Reviewed, no additional pertinent history. Surgical history: Reviewed in system, no additional pertinent history. Social history: Reviewed in system, no additional pertinent history. Family history: Reviewed in system, no additional pertinent history. PHYSICAL EXAM Vital signs reviewed. Nursing notes reviewed. Constitutional: Awake, alert, non-distressed. Head: Normocephalic, atraumatic. Eyes: EOMI, conjunctiva normal, no discharge, no scleral icterus. Ears, Nose, Throat: External ears and nose normal, moist oral mucosa. Cardiovascular: Tachycardic, 2+ radial pulse, capillary refill less than 2 seconds. Pulmonary: normal work of breathing, no accessory muscle use. Abdomen/GI: Soft, nontender, nondistended, no guarding or rigidity, no masses. Musculoskeletal: No deformities. Integumentary: Appropriate color for ethnicity, warm, dry, no pallor or jaundice, no rash. Neurologic: Alert, answering questions appropriately, normal speech, no facial droop, moving all extremities well. Psychiatric: Appropriate mood and affect, normal thought process. This patient was seen and evaluated during the 2019 SARS-CoV-2 novel coronavirus pandemic period. Community viral transmission is ongoing at time of this encounter and the emergency department is operating under pandemic response procedures. - Related Data Allergies Allergy/AdvReac Type Severity Reaction Status Date / Time amoxicillin Allergy Shortness Verified 02/12/20 07:31 of Breath cefdinir [From Omnicef] Allergy Shortness Verified 02/12/20 07:31 of Breath Penicillins Allergy Shortness Verified 02/12/20 07:31 of Breath pentosan polysulfate sodium Allergy Tachycardia Verified 02/12/20 07:31 [From Elmiron] prochlorperazine Allergy Shortness Verified 02/12/20 07:31 [From Compazine] of Breath Sulfa (Sulfonamide Allergy Shortness Verified 02/12/20 07:31 Antibiotics) of Breath sulfamethoxazole Allergy Shortness Verified 02/12/20 07:31 [From Bactrim] of Breath tetracycline Allergy Shortness Verified 02/12/20 07:31 of Breath trimethoprim [From Bactrim] Allergy Shortness Verified 02/12/20 07:31 of Breath Home Meds: Home Meds Budesonide/Formoterol [Symbicort 160-4.5 MCG] 2 puff INH DAILY 03/24/16 [History] Insulin Lispro [Humalog] 1 pump SQ ASDIRECTED 03/24/16 [History] Losartan [Cozaar] 10 mg PO DAILY 03/24/16 [History] Aspirin 81 mg PO DAILY 02/12/20 [History] Ondansetron [Zofran] 4 mg PO Q8H PRN #15 tab 02/12/20 [Rx] Ticagrelor [Brilinta] 1 tab PO BID 02/12/20 [History] Past Medical History - Past Health History Medical/Surgical History: Denies Medical/Surgical History HEENT History: Reports: None Cardiovascular History: Reports: High Cholesterol Respiratory History: Reports: Asthma Gastrointestinal History: Reports: None Genitourinary History: Reports: Other (See Below) Other Genitourinary History: interstital cystitis per pt [employer] History: Reports: Musculoskeletal History: Reports: None Other Musculoskeletal History: cervical dissectomy Neurological History: Reports: None Psychiatric History: Reports: None Endocrine/Metabolic History: Reports: Diabetes, Type I Insulin Pump Model and Burial Vault Maker: TSlim Hematologic History: Reports: None Immunologic History: Reports: None Oncologic (Cancer) History: Reports: None Dermatologic History: Reports: None - Infectious Disease History Infectious Disease History: Reports: None - Past Surgical History Head Surgeries/Procedures: Reports: None HEENT Surgical History: Reports: None Cardiovascular Surgical History: Reports: None Other Cardiovascular Surgeries/Procedures: 2 stents Respiratory Surgical History: Reports: None GI Surgical History: Reports: None Female Surgical History: Reports: Section Endocrine Surgical History: Reports: None Neurological Surgical History: Reports: None Musculoskeletal Surgical History: Reports: None Oncologic Surgical History: Reports: None Dermatological Surgical History: Reports: None Social & Family History - Family History Family Medical History: No Pertinent Family History - Tobacco Use Tobacco Use Status *Q: Never Tobacco User - Caffeine Use Caffeine Use: Reports: Coffee, Energy Drinks, Soda, Tea - Recreational Drug Use Recreational Drug Use: No ED ROS GENERAL - Review of Systems Review Of Systems: See Below ED EXAM, GI/ABD - Physical Exam Exam: See Below #1 Interpretation EKG Interpretation Comments: 12-Lead ECG Interpretation Acquired: 7:48 AM Rhythm: Sinus tachycardia Rate: 120 bpm [place]: Normal Intervals: Normal Ectopy: None RV Strain: No obvious RV strain pattern. ST Segments/T-Waves: No notable changes Acute Ischemic Changes: None apparent Interpretation: No STEMI, Q waves in lead III, prior inferior myocardial infarction Course - Vital Signs Text/Narrative:: Patient tachycardic and mildly hypothermic on arrival but hemodynamically stable, afebrile, well-appearing, looks nontoxic. Differential diagnosis includes but is not limited to: Viral gastroenteritis, sepsis, DKA, HHS, electrolyte disturbance, volume depletion, sepsis, less likely intra-abdominal infection, less likely pancreatitis, acute hepatitis, or biliary disease. It sounds like the patient has a history of sinus tachycardia. She tells me that her help aid has prescribed her diltiazem to control her heart rate and she is supposed to picker and start this medication today. She states that her heart rate normally runs in the 110s. 7:03 AM: The patient declined blood cultures. I explained that there is a chance of missing bacteremia. I explained my concerns about tachycardia and hypothermia and concerns for sepsis. The patient understands the risks of missed bacteremia and still wants to decline the blood cultures. We are waiting for blood work. 8:17 AM: Patient feeling better after Zofran. IV fluids infusing. P.o. challenging at the moment. Pain-free. Labs show leukocytosis without neutrophilic predominance. Normal lactate. Chemistry panel shows hyperglycemia with normal CO2, glucose is 204. Other electrolytes are normal. Troponin negative. LFTs show mild elevations of ALT and alkaline phosphatase with normal bilirubin. These are nonspecific. Heart rate is improving. Low suspicion for bacterial intra-abdominal infection given lack of pain or tenderness. On recheck, temperature is now normal. Given negative work-up and symptomatic improvement, patient is stable discharge home with outpatient primary care follow-up. Prescriptions sent for Zofran and Imodium. Plan: Patient is stable to discharge home with outpatient primary care clinic follow-up. Strict emergency department return precautions were provided, patient indicated understanding. All questions were answered prior to departure. Discharged in good condition. Last Recorded V/S: Last Vital Signs Temp 36.2 C 02/12/20 08:15 Pulse 106 H 02/12/20 08:46 Resp 17 02/12/20 08:46 BP 142/82 H 02/12/20 08:46 Pulse Ox 100 02/12/20 08:15 - Orders/Labs/Meds Orders: Active Orders 24 hr Category Date Time Status Cardiac Monitoring [RC] CONTINUOUS Care 02/12/20 07:35 Active EKG Documentation Completion [RC] STAT Care 02/12/20 07:34 Active Overnight Pulse Oximetry [RC] Click to Edit Care 02/12/20 07:35 Active POC Glucose [Blood Glucose Check, Bedside] [RC] ONETIME Care 02/12/20 07:36 Active Sodium Chloride 0.9% [Saline Flush] Med 02/12/20 07:34 Active 10 ml FLUSH ASDIRECTED PRN Sodium Chloride 0.9% [Saline Flush] Med 02/12/20 07:34 Active 2.5 ml FLUSH ASDIRECTED PRN Pulse Oximetry Continuous Monitoring [OM.PC] Routine Oth 02/12/20 07:34 Ordered Saline Lock Insert [OM.PC] Stat Oth 02/12/20 07:34 Ordered Medication Orders Sodium Chloride (Saline Flush) 10 ml FLUSH ASDIRECTED PRN PRN Reason: Keep Vein Open Last Admin: 02/12/20 07:47 Dose: 10 ml Documented by: LEDA Sodium Chloride (Saline Flush) 2.5 ml FLUSH ASDIRECTED PRN PRN Reason: Keep Vein Open Labs: Laboratory Tests 02/12/20 02/12/20 02/12/20 Range/Units 07:39 07:40 07:40 WBC 14.62 H (4.0-11.0) K/uL RBC 4.96 (4.30-5.90) M/uL Hgb 13.7 (12.0-16.0) g/dL Hct 41.2 (36.0-46.0) % MCV 83.1 (80.0-98.0) fL MCH 27.6 (27.0-32.0) pg MCHC 33.3 (31.0-37.0) g/dL RDW Std Deviation 39.5 (28.0-62.0) fl RDW Coeff of Nacho 13 (11.0-15.0) % Plt Count 382 (150-400) K/uL MPV 11.30 (7.40-12.00) fL Neut % (Auto) 61.0 (48.0-80.0) % Lymph % (Auto) 30.3 (16.0-40.0) % [place] % (Auto) 5.9 (0.0-15.0) % Eos % (Auto) 2.4 (0.0-7.0) % Baso % (Auto) 0.4 (0.0-1.5) % Neut # (Auto) 8.9 H (1.4-5.7) K/uL Lymph # (Auto) 4.4 H (0.6-2.4) K/uL [place] # (Auto) 0.9 H (0.0-0.8) K/uL Eos # (Auto) 0.4 (0.0-0.7) K/uL Baso # (Auto) 0.1 (0.0-0.1) K/uL Nucleated RBC % 0.0 /100WBC Nucleated RBCs # 0 K/uL INR 0.99 Lactate (0.20-2.00) mmol/L Sodium (136-145) mmol/L Potassium (3.5-5.1) mmol/L Chloride (98-107) mmol/L Carbon Dioxide (21.0-32.0) mmol/L BUN (7.0-18.0) mg/dL Creatinine (0.6-1.0) mg/dL Est Cr Clr Drug Dosing mL/min Estimated GFR (MDRD) ml/min Glucose (74-106) mg/dL POC Glucose 177 H (60-110) mg/dL Calcium (8.5-10.1) mg/dL Total Bilirubin (0.2-1.0) mg/dL AST (15-37) IU/L ALT (14-63) IU/L Alkaline Phosphatase (46-116) U/L Troponin I (0.000-0.056) ng/mL Total Protein (6.4-8.2) g/dL Albumin (3.4-5.0) g/dL Globulin (2.6-4.0) g/dL Albumin/Globulin Ratio (0.9-1.6) 02/12/20 02/12/20 Range/Units 07:40 07:40 WBC (4.0-11.0) K/uL RBC (4.30-5.90) M/uL Hgb (12.0-16.0) g/dL Hct (36.0-46.0) % MCV (80.0-98.0) fL MCH (27.0-32.0) pg MCHC (31.0-37.0) g/dL RDW Std Deviation (28.0-62.0) fl RDW Coeff of Nacho (11.0-15.0) % Plt Count (150-400) K/uL MPV (7.40-12.00) fL Neut % (Auto) (48.0-80.0) % Lymph % (Auto) (16.0-40.0) % Carroll % (Auto) (0.0-15.0) % Eos % (Auto) (0.0-7.0) % Baso % (Auto) (0.0-1.5) % Neut # (Auto) (1.4-5.7) K/uL Lymph # (Auto) (0.6-2.4) K/uL [place] # (Auto) (0.0-0.8) K/uL Eos # (Auto) (0.0-0.7) K/uL Baso # (Auto) (0.0-0.1) K/uL Nucleated RBC % /100WBC Nucleated RBCs # K/uL INR Lactate 0.8 (0.20-2.00) mmol/L Sodium 135 L (136-145) mmol/L Potassium 3.9 (3.5-5.1) mmol/L Chloride 101 (98-107) mmol/L Carbon Dioxide 24.4 (21.0-32.0) mmol/L BUN 16 (7.0-18.0) mg/dL Creatinine 0.9 (0.6-1.0) mg/dL Est Cr Clr Drug Dosing 61.77 mL/min Estimated GFR (MDRD) > 60.0 ml/min Glucose 204 H (74-106) mg/dL POC Glucose (60-110) mg/dL Calcium 9.2 (8.5-10.1) mg/dL Total Bilirubin 0.3 (0.2-1.0) mg/dL AST 32 (15-37) IU/L ALT 65 H (14-63) IU/L Alkaline Phosphatase 162 H (46-116) U/L Troponin I < 0.050 (0.000-0.056) ng/mL Total Protein 7.6 (6.4-8.2) g/dL Albumin 3.5 (3.4-5.0) g/dL Globulin 4.1 H (2.6-4.0) g/dL Albumin/Globulin Ratio 0.9 (0.9-1.6) Meds: Medications Generic Name Dose Route Start Last Admin Trade Name Freq PRN Reason Stop Dose Admin Sodium Chloride 10 ml 02/12/20 07:34 02/12/20 07:47 Saline Flush FLUSH 10 ml ASDIRECTED PRN Administration Keep Vein Open Sodium Chloride 2.5 ml 02/12/20 07:34 Saline Flush FLUSH ASDIRECTED PRN Keep Vein Open Discontinued Medications Generic Name Dose Route Start Last Admin Trade Name Freq PRN Reason Stop Dose Admin Lactated Ringer's 1,000 mls @ 999 mls/hr 02/12/20 07:35 02/12/20 07:47 Ringers, Lactated IV 02/12/20 08:35 999 mls/hr .BOLUS ONE Administration Ondansetron HCl 4 mg 02/12/20 07:37 02/12/20 07:47 Zofran IVPUSH 02/12/20 07:38 4 mg ONETIME ONE Administration Departure - Departure Time of Disposition: 08:30 Disposition: Home, Self-Care 01 Condition: Good Clinical Impression: Viral gastroenteritis - Discharge Information *PRESCRIPTION DRUG MONITORING PROGRAM REVIEWED*: Not Applicable *COPY OF PRESCRIPTION DRUG MONITORING REPORT IN PATIENT IRMA: Not Applicable Prescriptions: Ondansetron [Zofran] 4 mg PO Q8H PRN #15 tab PRN Reason: Nausea/Vomiting Instructions: Viral Gastroenteritis, Adult Referrals: Leonard Reynolds MD [Primary Care Provider] - 3 Days (As needed for follow-up of symptoms.) Forms: ED Department Discharge Additional Instructions: You were seen in the emergency department for nausea, vomiting, and diarrhea. I am glad you are feeling better after some nausea medications and IV fluids. Your blood work did not show any significant derangements but was suggestive of a viral gastrointestinal infection. I am going to prescribe some Zofran for nausea along with some Imodium A-D for diarrhea. Be sure you are drinking plenty of fluids, Powerade or low calorie Gatorade are good choices. Please follow-up with your primary care doctor in the next 3 to 5 days for reevaluation if you are not doing better. Warning signs to come back to the ER include severe abdominal pain, fever of 100.4 or higher, bloody stools or vomit, or any other new or concerning symptoms. Please return the emergency department immediately if your symptoms worsen or if you feel worse. Thank you for choosing the [facility] emergency department in [place] for your medical needs today. It was a pleasure caring for you. The following information is given to patients seen in the emergency department who are being discharged. This information is to outline your options for follow-up care. We provide all patients seen in our emergency department with a follow-up referral. The need for follow-up, as well as the timing and circumstances, are variable depending upon the specifics of your emergency department visit. If you don't have a primary care physician on staff, we will provide you with a referral. We always advise you to contact your personal physician following an emergency department visit to inform them of the circumstance of the visit and for follow-up with them and/or the need for any referrals to a consulting sp ecialist. The emergency department will also refer you to a specialist when appropriate. This referral assures that you have the opportunity for follow-up care with a specialist. All of these measure are taken in an effort to provide you with optimal care, which includes your follow-up. Under all circumstances we always encourage you to contact your private physician who remains a resource for coordinating your care. When calling for follow-up care, please make the office aware that this follow-up is from your recent emergency room visit. If for any reason you are refused follow-up, please contact the [facility] Emergency Department at and asked to speak to the emergency department charge nurse. If you do not have a primary care physician that is caring for you, you can contact these clinics below to set up an appointment to establish care: [facility] [address] [place] [address] [place] [address] Sepsis Event Note (ED) - Evaluation Sepsis Screening Result: No Definite Risk - Focused Exam Vital Signs: Vital Signs Temp Pulse Resp BP Pulse Ox 02/12/20 08:46 106 H 17 142/82 H 02/12/20 08:15 36.2 C 111 H 17 156/93 H 100 02/12/20 07:28 35.5 C L 133 H 16 150/88 H 98 - My Orders Last 24 Hours: My Active Orders 02/12/20 07:34 EKG Documentation Completion [RC] STAT Sodium Chloride 0.9% [Saline Flush] 10 ml FLUSH ASDIRECTED PRN Sodium Chloride 0.9% [Saline Flush] 2.5 ml FLUSH ASDIRECTED PRN Pulse Oximetry Continuous Monitoring [OM.PC] Routine Saline Lock Insert [OM.PC] Stat 02/12/20 07:35 Cardiac Monitoring [RC] CONTINUOUS Overnight Pulse Oximetry [RC] Click to Edit 02/12/20 07:36 POC Glucose [Blood Glucose Check, Bedside] [RC] ONETIME - Assessment/Plan Last 24 Hours: My Active Orders 02/12/20 07:34 EKG Documentation Completion [RC] STAT Sodium Chloride 0.9% [Saline Flush] 10 ml FLUSH ASDIRECTED PRN Sodium Chloride 0.9% [Saline Flush] 2.5 ml FLUSH ASDIRECTED PRN Pulse Oximetry Continuous Monitoring [OM.PC] Routine Saline Lock Insert [OM.PC] Stat 02/12/20 07:35 Cardiac Monitoring [RC] CONTINUOUS Overnight Pulse Oximetry [RC] Click to Edit 02/12/20 07:36 POC Glucose [Blood Glucose Check, Bedside] [RC] ONETIME
[2020-02-12 08:16] LABS: BLOOD UREA NITROGEN,BUN 16 mg/dL (7.0-18.0); CARBON DIOXIDE,CO2 24.4 mmol/L (21.0-32.0); CHLORIDE,CL 101 mmol/L (98-107); GLUCOSE RANDOM 204 mg/dL (74-106); POTASSIUM,K 3.9 mmol/L (3.5-5.1); SODIUM,NA 135 mmol/L (136-145)
[2020-02-12 08:47] VITALS: BP 142/82; PULSE 106
== END 2020-02-12 08:46 | disposition home or self-care (01) ==
LOC: MW.ED 07:17
DX: A08.4 Viral intestinal infection, unspecified (principal); R00.0 Tachycardia, unspecified; J45.909 Unspecified asthma, uncomplicated; E10.9 Type 1 diabetes mellitus without complications; Z88.1 Allergy status to other antibiotic agents; Z88.0 Allergy status to penicillin; Z88.8 Allergy status to other drugs, medicaments and biological substances; Z88.2 Allergy status to sulfonamides; Z79.899 Other long term (current) drug therapy
CPT/HCPCS: 80053; 82962; 83605; 84484; 85025; 85610; 93005; 96374; 99285; J2405; J7120; 93010; 99283

== ENCOUNTER 2020-02-16 12:57 | Emergency (ER) | payer BC ==
--- NOTE | 2020-02-16 13:15 | EDM.PDOC ---
ED HPI GENERAL MEDICAL PROBLEM - General Chief Complaint: General Stated Complaint: NOT FEELING WELL Time Seen by Provider: 02/16/20 12:59 Source of Information: Reports: Patient, Old Records History Limitations: Reports: No Limitations - History of Present Illness INITIAL COMMENTS - FREE TEXT/NARRATIVE: This is a 45-year-old female with a past medical history of type I diabetes mellitus, sinus tachycardia, myocardial infarction status post stenting in September 2019 presenting with fever, body aches, and diarrhea. Patient was personally seen by me in the emergency department on 02/12/2020 for 3 days of nausea and vomiting, she felt better after receiving IV fluids and Zofran. She was able to discharge home with prescriptions for Zofran and Imodium. We offered blood cultures at that visit which she did decline. She reports a 3-day history of new cough, body aches, and fever. T-max 100.9 Fahrenheit at home. Her is also ill with a fever and cough and is going to be tested for COVID-19. She was concerned that she may be dehydrated so she came to the emergency department. She was seen for nausea, vomiting, and diarrhea several days ago but states that this since went away with the prescribed Zofran and Imodium. ROS: A 10-point review of systems was negative, except as noted in the HPI (or in the ROS section of this note). Past medical history: Reviewed, no additional pertinent history. Surgical history: Reviewed in system, no additional pertinent history. Social history: Reviewed in system, no additional pertinent history. Family history: Reviewed in system, no additional pertinent history. PHYSICAL EXAM Vital signs reviewed. Nursing notes reviewed. Constitutional: Awake, alert, non-distressed. Head: Normocephalic, atraumatic. Eyes: EOMI, conjunctiva normal, no discharge, no scleral icterus. Ears, Nose, Throat: External ears and nose normal, moist oral mucosa. Left TM appears somewhat cloudy, right TM is clear. No erythema. No otorrhea. Handling secretions without difficulty. Neck: Supple, full range of motion. Cardiovascular: Tachycardic, 2+ radial pulses bilaterally, capillary refill less than 2 seconds. Pulmonary: normal work of breathing, no accessory muscle use. Abdomen/GI: Soft, nontender, nondistended, no guarding or rigidity, no masses. Musculoskeletal: No deformities. Integumentary: Appropriate color for ethnicity, warm, dry, no pallor or jaundice, no rash. Neurologic: Alert, answering questions appropriately, normal speech, no facial droop, moving all extremities well. Psychiatric: Appropriate mood and affect, normal thought process. This patient was seen and evaluated during the 2019 SARS-CoV-2 novel coronavirus pandemic period. Community viral transmission is ongoing at time of this encounter and the emergency department is operating under pandemic response procedures. - Related Data Allergies Allergy/AdvReac Type Severity Reaction Status Date / Time amoxicillin Allergy Shortness Verified 02/16/20 13:27 of Breath cefdinir [From Omnicef] Allergy Shortness Verified 02/16/20 13:27 of Breath Penicillins Allergy Shortness Verified 02/16/20 13:27 of Breath pentosan polysulfate sodium Allergy Tachycardia Verified 02/16/20 13:27 [From Elmiron] prochlorperazine Allergy Shortness Verified 02/16/20 13:27 [From Compazine] of Breath Sulfa (Sulfonamide Allergy Shortness Verified 02/16/20 13:27 Antibiotics) of Breath sulfamethoxazole Allergy Shortness Verified 02/16/20 13:27 [From Bactrim] of Breath tetracycline Allergy Shortness Verified 02/16/20 13:27 of Breath trimethoprim [From Bactrim] Allergy Shortness Verified 02/16/20 13:27 of Breath Home Meds: Home Meds Budesonide/Formoterol [Symbicort 160-4.5 MCG] 2 puff INH DAILY 03/24/16 [History] Insulin Lispro [Humalog] 1 pump SQ ASDIRECTED 03/24/16 [History] Losartan [Cozaar] 10 mg PO DAILY 03/24/16 [History] Aspirin 81 mg PO DAILY 02/12/20 [History] Ondansetron [Zofran] 4 mg PO Q8H PRN #15 tab 02/12/20 [Rx] Ticagrelor [Brilinta] 1 tab PO BID 02/12/20 [History] Past Medical History - Past Health History Medical/Surgical History: Denies Medical/Surgical History HEENT History: Reports: None Cardiovascular History: Reports: High Cholesterol Respiratory History: Reports: Asthma Gastrointestinal History: Reports: None Genitourinary History: Reports: Other (See Below) Other Genitourinary History: interstital cystitis per pt [employer] History: Reports: Musculoskeletal History: Reports: None Other Musculoskeletal History: cervical dissectomy Neurological History: Reports: None Psychiatric History: Reports: None Endocrine/Metabolic History: Reports: Diabetes, 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 Hematologic History: Reports: None Immunologic History: Reports: None Oncologic (Cancer) History: Reports: None Dermatologic History: Reports: None - Infectious Disease History Infectious Disease History: Reports: None - Past Surgical History Head Surgeries/Procedures: Reports: None HEENT Surgical History: Reports: None Cardiovascular Surgical History: Reports: None Other Cardiovascular Surgeries/Procedures: 2 stents Respiratory Surgical History: Reports: None GI Surgical History: Reports: None Female Surgical History: Reports: Section Endocrine Surgical History: Reports: None Neurological Surgical History: Reports: None Musculoskeletal Surgical History: Reports: None Oncologic Surgical History: Reports: None Dermatological Surgical History: Reports: None Social & Family History - Family History Family Medical History: No Pertinent Family History - Caffeine Use Caffeine Use: Reports: Coffee, Energy Drinks, Soda, Tea ED ROS GENERAL - Review of Systems Review Of Systems: See Below ED EXAM, GENERAL - Physical Exam Exam: See Below Course - Vital Signs Text/Narrative:: 45-year-old female presenting with a 3-day history of cough, fever, and myalgias. Patient tachycardic but hemodynamically stable, afebrile, well-appearing, looks nontoxic. Differential diagnosis includes but is not limited to: COVID-19 infection, viral syndrome, sepsis, influenza, volume depletion, electrolyte disturbance, anemia, hyperglycemia, DKA, HHS, and many others. 1:37 PM: I did offer blood cultures, which the patient is refusing. This was also the case the last time she was in the emergency department. She has no chest discomfort or shortness of breath. She is not hypoxic and seems to have no evidence of respiratory impairment. We will establish IV access, send some labs, give IV fluids, and obtain a rapid COVID and influenza swab. 2:28 PM: Labs show normal cell lines. Venous blood gas shows mildly elevated pH but normal bicarbonate. Lactate is normal. Metabolic panel shows a glucose 395 with normal carbon dioxide. Sodium slightly low 133. AST, ALT, alkaline phosphatase are mildly elevated. We are waiting on the COVID and influenza swabs. 3:05 PM: Rapid COVID PCR testing is positive. Her symptoms fit with a COVID-19 infection. The rest of her blood work is reassuring. She shows no signs of respiratory compromise. She is breathing easily on room air, is not hypoxic, and has no shortness of breath or chest discomfort. She does not look clinically volume depleted. Her heart rate prior to discharge had improved to 110-115, which is typical for her. She is not in DKA or HHS by her lab work. She is stable to discharge home. We discussed isolation precautions and symptomatic treatment with [id number] medications. Plan: Patient is stable to discharge home with outpatient primary care clinic follow-up. Strict emergency department return precautions were provided, patient indicated understanding. All questions were answered prior to departure. Discharged in good condition. Last Recorded V/S: Last Vital Signs Temp 36.8 C 02/16/20 13:15 Pulse 133 H 02/16/20 13:15 Resp 16 02/16/20 13:15 BP 154/93 H 02/16/20 13:15 Pulse Ox 94 L 02/16/20 13:15 - Orders/Labs/Meds Orders: Active Orders 24 hr Category Date Time Status Pulse Oximetry [RC] ASDIRECTED Care 02/16/20 13:30 Active CORONAVIRUS COVID-19 PCR PHL Stat Lab 02/16/20 14:10 Received Sodium Chloride 0.9% [Saline Flush] Med 02/16/20 13:30 Active 10 ml FLUSH ASDIRECTED PRN Sodium Chloride 0.9% [Saline Flush] Med 02/16/20 13:30 Active 2.5 ml FLUSH ASDIRECTED PRN Isolation [COMM] Routine Oth 02/16/20 13:38 Active Saline Lock Insert [OM.PC] Stat Oth 02/16/20 13:30 Ordered Medication Orders Sodium Chloride (Saline Flush) 10 ml FLUSH ASDIRECTED PRN PRN Reason: Keep Vein Open Last Admin: 02/16/20 14:20 Dose: 10 ml Documented by: JAZMINE Sodium Chloride (Saline Flush) 2.5 ml FLUSH ASDIRECTED PRN PRN Reason: Keep Vein Open Last Admin: 02/16/20 14:20 Dose: 2.5 ml Documented by: JAZMINE Labs: Laboratory Tests 02/16/20 02/16/20 02/16/20 Range/Units 13:37 13:37 13:37 WBC 6.58 (4.0-11.0) K/uL RBC 4.62 (4.30-5.90) M/uL Hgb 12.8 (12.0-16.0) g/dL Hct 38.2 (36.0-46.0) % MCV 82.7 (80.0-98.0) fL MCH 27.7 (27.0-32.0) pg MCHC 33.5 (31.0-37.0) g/dL RDW Std Deviation 39.1 (28.0-62.0) fl RDW Coeff of Nacho 13 (11.0-15.0) % Plt Count 290 (150-400) K/uL MPV 11.60 (7.40-12.00) fL Neut % (Auto) 64.6 (48.0-80.0) % Lymph % (Auto) 18.7 (16.0-40.0) % Catron % (Auto) 14.7 (0.0-15.0) % Eos % (Auto) 1.5 (0.0-7.0) % Baso % (Auto) 0.5 (0.0-1.5) % Neut # (Auto) 4.3 (1.4-5.7) K/uL Lymph # (Auto) 1.2 (0.6-2.4) K/uL Catron # (Auto) 1.0 H (0.0-0.8) K/uL Eos # (Auto) 0.1 (0.0-0.7) K/uL Baso # (Auto) 0.0 (0.0-0.1) K/uL Nucleated RBC % 0.0 /100WBC Nucleated RBCs # 0 K/uL VBG pH (7.31-7.41) VBG pCO2 (35-45) mmHG VBG pO2 (30-40) mmHG VBG HCO3 (22-30) mEq/L VBG Total CO2 (41-51) mmol/L VBG Base Excess (-3.0-3.0) Lactate 1.6 (0.20-2.00) mmol/L Sodium 133 L (136-145) mmol/L Potassium 4.4 (3.5-5.1) mmol/L Chloride 100 (98-107) mmol/L Carbon Dioxide 23.4 (21.0-32.0) mmol/L BUN 11 (7.0-18.0) mg/dL Creatinine 1.0 (0.6-1.0) mg/dL Est Cr Clr Drug Dosing 55.60 mL/min Estimated GFR (MDRD) 59.7 ml/min Glucose 395 H (74-106) mg/dL Calcium 8.5 (8.5-10.1) mg/dL Total Bilirubin 0.3 (0.2-1.0) mg/dL AST 63 H (15-37) IU/L ALT 67 H (14-63) IU/L Alkaline Phosphatase 179 H (46-116) U/L Total Protein 7.0 (6.4-8.2) g/dL Albumin 3.3 L (3.4-5.0) g/dL Globulin 3.7 (2.6-4.0) g/dL Albumin/Globulin Ratio 0.9 (0.9-1.6) SARS CoV-2 RNA Rapid ANTHONY (NEGATIVE) 02/16/20 02/16/20 Range/Units 13:37 14:10 WBC (4.0-11.0) K/uL RBC (4.30-5.90) M/uL Hgb (12.0-16.0) g/dL Hct (36.0-46.0) % MCV (80.0-98.0) fL MCH (27.0-32.0) pg MCHC (31.0-37.0) g/dL RDW Std Deviation (28.0-62.0) fl RDW Coeff of Nacho (11.0-15.0) % Plt Count (150-400) K/uL MPV (7.40-12.00) fL Neut % (Auto) (48.0-80.0) % Lymph % (Auto) (16.0-40.0) % Catron % (Auto) (0.0-15.0) % Eos % (Auto) (0.0-7.0) % Baso % (Auto) (0.0-1.5) % Neut # (Auto) (1.4-5.7) K/uL Lymph # (Auto) (0.6-2.4) K/uL Catron # (Auto) (0.0-0.8) K/uL Eos # (Auto) (0.0-0.7) K/uL Baso # (Auto) (0.0-0.1) K/uL Nucleated RBC % /100WBC Nucleated RBCs # K/uL VBG pH 7.48 H (7.31-7.41) VBG pCO2 32 L (35-45) mmHG VBG pO2 55 H (30-40) mmHG VBG HCO3 24 (22-30) mEq/L VBG Total CO2 21 L (41-51) mmol/L VBG Base Excess 0.8 (-3.0-3.0) Lactate (0.20-2.00) mmol/L Sodium (136-145) mmol/L Potassium (3.5-5.1) mmol/L Chloride (98-107) mmol/L Carbon Dioxide (21.0-32.0) mmol/L BUN (7.0-18.0) mg/dL Creatinine (0.6-1.0) mg/dL Est Cr Clr Drug Dosing mL/min Estimated GFR (MDRD) ml/min Glucose (74-106) mg/dL Calcium (8.5-10.1) mg/dL Total Bilirubin (0.2-1.0) mg/dL AST (15-37) IU/L ALT (14-63) IU/L Alkaline Phosphatase (46-116) U/L Total Protein (6.4-8.2) g/dL Albumin (3.4-5.0) g/dL Globulin (2.6-4.0) g/dL Albumin/Globulin Ratio (0.9-1.6) SARS CoV-2 RNA Rapid ANTHONY POSITIVE H (NEGATIVE) Meds: Medications Generic Name Dose Route Start Last Admin Trade Name Freq PRN Reason Stop Dose Admin Sodium Chloride 10 ml 02/16/20 13:30 02/16/20 14:20 Saline Flush FLUSH 10 ml ASDIRECTED PRN Administration Keep Vein Open Sodium Chloride 2.5 ml 02/16/20 13:30 02/16/20 14:20 Saline Flush FLUSH 2.5 ml ASDIRECTED PRN Administration Keep Vein Open Discontinued Medications Generic Name Dose Route Start Last Admin Trade Name Dhaval PRN Reason Stop Dose Admin Lactated Ringer's 1,000 mls @ 999 mls/hr 02/16/20 13:30 02/16/20 14:19 Ringers, Lactated IV 02/16/20 14:30 999 mls/hr .BOLUS ONE Administration Lactated Ringer's 1,000 mls @ 999 mls/hr 02/16/20 13:31 02/16/20 14:20 Ringers, Lactated IV 02/16/20 14:31 Not Given .BOLUS ONE Departure - Departure Time of Disposition: 15:03 Disposition: Home, Self-Care 01 Condition: Good Clinical Impression: COVID-19 virus infection, Hyperglycemia - Discharge Information *PRESCRIPTION DRUG MONITORING PROGRAM REVIEWED*: Not Applicable *COPY OF PRESCRIPTION DRUG MONITORING REPORT IN PATIENT IRMA: Not Applicable Instructions: COVID-19 Frequently Asked Questions, COVID-19: How to Protect Yourself and Others - CDC, Prevent the Spread of COVID-19 if You Are Sick - CDC Referrals: Leonard Reynolds MD [Primary Care Provider] - 1 Week (For follow-up of symptoms, as needed.) Forms: ED Department Discharge Additional Instructions: Your COVID-19 test was positive. You need to stay home from work or school and isolate from others as much as possible. You need to wear a mask or face covering and you should cover your cough or sneeze. Wash your hands frequently. Try to isolate yourself from family members or others as much as you can. You may develop new symptoms such as a headache, sore throat, cough, sneezing, nasal congestion or drainage, chest congestion, nausea, vomiting, diarrhea, body aches, or chills. These are not unusual. Recommendations from the Centers for Disease Control (CDC) are that you should isolate at home for at least 10 days from the start of your symptoms. When your symptoms are improving for a period of 24 hours and you have no fever (without the use of fever reducing medications like acetaminophen or ibuprofen), you may discontinue isolation and go back to work/school. If you are still feeling unwell at the end of the 10-day period, you should continue to isolate until you have been feeling better for 24 hours. Anyone that lives with you or anyone that has been in close contact (within 6 feet for 15 total minutes) recently (3-4 days before your symptoms started) needs to be tested for COVID. You can take any standard [id number] medications for cold or flu type symptoms including fever reducing medications (acetaminophen or ibuprofen), cough medications (Robitussin, cough drops or lozenges), or medications like TheraFlu or DayQuil/NyQuil. Be sure you are drinking plenty of fluids. If you are still feeling sick beyond 10-14 days after the onset of your symptoms I would recommend contacting your primary medical doctor's office for further guidance. Warning signs to come back to the emergency department include shortness of breath, chest pain, lightheadedness, loss of consciousness, if you are unable to swallow or handle drinking fluids, or if you have any other new and concerning symptoms. Thank you for choosing the [facility] emergency department in [place] for your medical needs today. It was a pleasure caring for you. The following information is given to patients seen in the emergency department who are being discharged. This information is to outline your options for follow-up care. We provide all patients seen in our emergency department with a follow-up referral. The need for follow-up, as well as the timing and circumstances, are variable depending upon the specifics of your emergency department visit. If you don't have a primary care physician on staff, we will provide you with a referral. We always advise you to contact your personal physician following an emergency department visit to inform them of the circumstance of the visit and for follow-up with them and/or the need for any referrals to a consulting sp ecialist. The emergency department will also refer you to a specialist when appropriate. This referral assures that you have the opportunity for follow-up care with a specialist. All of these measure are taken in an effort to provide you with optimal care, which includes your follow-up. Under all circumstances we always encourage you to contact your private physician who remains a resource for coordinating your care. When calling for follow-up care, please make the office aware that this follow-up is from your recent emergency room visit. If for any reason you are refused follow-up, please contact the [facility] Emergency Department at and asked to speak to the emergency department charge nurse. If you do not have a primary care physician that is caring for you, you can contact these clinics below to set up an appointment to establish care: [facility] - Primary Care [address] [place] [id number] [facility] [address] [place] [id number] Sepsis Event Note (ED) - Focused Exam Vital Signs: Vital Signs Temp Pulse Resp BP Pulse Ox 02/16/20 13:15 36.8 C 133 H 16 154/93 H 94 L - My Orders Last 24 Hours: My Active Orders 02/16/20 13:30 Pulse Oximetry [RC] ASDIRECTED Sodium Chloride 0.9% [Saline Flush] 10 ml FLUSH ASDIRECTED PRN Sodium Chloride 0.9% [Saline Flush] 2.5 ml FLUSH ASDIRECTED PRN Saline Lock Insert [OM.PC] Stat 02/16/20 13:38 Isolation [COMM] Routine 02/16/20 14:10 CORONAVIRUS COVID-19 PCR PHL Stat - Assessment/Plan Last 24 Hours: My Active Orders 02/16/20 13:30 Pulse Oximetry [RC] ASDIRECTED Sodium Chloride 0.9% [Saline Flush] 10 ml FLUSH ASDIRECTED PRN Sodium Chloride 0.9% [Saline Flush] 2.5 ml FLUSH ASDIRECTED PRN Saline Lock Insert [OM.PC] Stat 02/16/20 13:38 Isolation [COMM] Routine 02/16/20 14:10 CORONAVIRUS COVID-19 PCR PHL Stat
[2020-02-16] MEDS ORDERED: Lactated Ringers 1,000 ML IV ONE ×2 (13:30→13:31)
[2020-02-16] MEDS ORDERED: Sodium Chloride 0.9% 2.5 ML Syringe FLUSH PRN (13:30)
[2020-02-16] MEDS ORDERED: Sodium Chloride 0.9% 10 ML Syringe FLUSH PRN (13:30)
[2020-02-16 14:23] LABS: CARBON DIOXIDE,CO2 23.4 mmol/L (21.0-32.0); POTASSIUM,K 4.4 mmol/L (3.5-5.1)
[2020-02-16 15:25] VITALS: BP 142/88; PULSE 109
== END 2020-02-16 15:32 | disposition home or self-care (01) ==
LOC: MW.ED 12:57
DX: U07.1 COVID-19 (principal); E10.65 Type 1 diabetes mellitus with hyperglycemia; J45.909 Unspecified asthma, uncomplicated; Z88.0 Allergy status to penicillin; Z88.1 Allergy status to other antibiotic agents; Z88.2 Allergy status to sulfonamides; Z88.8 Allergy status to other drugs, medicaments and biological substances; Z79.82 Long term (current) use of aspirin; Z79.899 Other long term (current) drug therapy
CPT/HCPCS: 36415; 80053; 82803; 83605; 85025; 87635; 99284; J7120; 99283; U0002

== ENCOUNTER 2020-04-12 22:31 | Emergency (ER) | payer BC ==
[2020-04-12] MEDS ORDERED: Sodium Chloride 0.9% 2.5 ML Syringe FLUSH PRN (22:40)
[2020-04-12] MEDS ORDERED: Sodium Chloride 0.9% 10 ML Syringe FLUSH PRN (22:40)
--- NOTE | 2020-04-12 22:43 | EDM.PDOC ---
ED HPI GENERAL MEDICAL PROBLEM - General Stated Complaint: CHEST PAIN Time Seen by Provider: 04/12/20 22:34 - History of Present Illness INITIAL COMMENTS - FREE TEXT/NARRATIVE: Patient complains of palpitations. She had it twice yesterday and once today. The episode was rather prolonged today and scared her. She got very anxious and felt little heavy in her chest. She had a little nausea but no diaphoresis. She is quite concerned primarily because she is a type I diabetic and she came in 4 months ago with palpitations and a little chest discomfort and had to have emergency evacuation to [place] where she had an language asst place d 2 stents and put her on Brilinta and aspirin. She has no reason to have a pulmonary embolus. She is not immobilized recently and has no leg swelling. She is on Brilinta and aspirin. Feels a little better relaxing. Not tolerate metoprolol in the past and is on diltiazem at a low dose. She sees her lye bath operator in my not tomorrow. - Related Data Allergies Allergy/AdvReac Type Severity Reaction Status Date / Time amoxicillin Allergy Shortness Verified 04/12/20 22:51 of Breath cefdinir [From Omnicef] Allergy Shortness Verified 04/12/20 22:51 of Breath Penicillins Allergy Shortness Verified 04/12/20 22:51 of Breath pentosan polysulfate sodium Allergy Tachycardia Verified 04/12/20 22:51 [From Elmiron] prochlorperazine Allergy Shortness Verified 04/12/20 22:51 [From Compazine] of Breath Sulfa (Sulfonamide Allergy Shortness Verified 04/12/20 22:51 Antibiotics) of Breath sulfamethoxazole Allergy Shortness Verified 04/12/20 22:51 [From Bactrim] of Breath tetracycline Allergy Shortness Verified 04/12/20 22:51 of Breath trimethoprim [From Bactrim] Allergy Shortness Verified 04/12/20 22:51 of Breath Home Meds: Home Meds Budesonide/Formoterol [Symbicort 160-4.5 MCG] 2 puff INH DAILY 03/24/16 [History] Insulin Lispro [Humalog] 1 pump SQ ASDIRECTED 03/24/16 [History] Losartan [Cozaar] 10 mg PO DAILY 03/24/16 [History] Aspirin 81 mg PO DAILY 02/12/20 [History] Ondansetron [Zofran] 4 mg PO Q8H PRN #15 tab 02/12/20 [Rx] Ticagrelor [Brilinta] 1 tab PO BID 02/12/20 [History] Diltiazem HCl [Cardizem LA] 04/12/20 [History] Past Medical History - Past Health History Medical/Surgical History: Denies Medical/Surgical History HEENT History: Reports: None Cardiovascular History: Reports: High Cholesterol Respiratory History: Reports: Asthma Gastrointestinal History: Reports: None Genitourinary History: Reports: Other (See Below) Other Genitourinary History: interstital cystitis per pt 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: 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: Musculoskeletal History: Reports: None Other Musculoskeletal History: cervical dissectomy Neurological History: Reports: None Psychiatric History: Reports: None Endocrine/Metabolic History: Reports: Diabetes, Type I Insulin Pump Model and [employer] Web Developer: TSlim Hematologic History: Reports: None Immunologic History: Reports: None Oncologic (Cancer) History: Reports: None Dermatologic History: Reports: None - Infectious Disease History Infectious Disease History: Reports: None - Past Surgical History Head Surgeries/Procedures: Reports: None HEENT Surgical History: Reports: None Cardiovascular Surgical History: Reports: None Other Cardiovascular Surgeries/Procedures: 2 stents Respiratory Surgical History: Reports: None GI Surgical History: Reports: None Female Surgical History: Reports: Section Endocrine Surgical History: Reports: None Neurological Surgical History: Reports: None Musculoskeletal Surgical History: Reports: None Oncologic Surgical History: Reports: None Dermatological Surgical History: Reports: None Social & Family History - Family History Family Medical History: No Pertinent Family History - Caffeine Use Caffeine Use: Reports: Coffee, Energy Drinks, Soda, Tea ED ROS GENERAL - Review of Systems Review Of Systems: Comprehensive ROS is negative, except as noted in HPI. ED EXAM, GENERAL - Physical Exam Exam: See Below Free Text/Narrative:: My physical exam is in the HPI #1 Interpretation EKG Interpretation Comments: EKG done at 2223 hrs. Heart rate 132 with a sinus tachycardia. AR 136. [place] - 8. QT 452. QRS ST and T are unremarkable. It is compared to 02/12/2020 and there is no change impression no acute injury Course - Vital Signs Text/Narrative:: Patient did well after ice water. This is probably a vagal stimulus. Her rhythm seemed to be benign her troponin was negative and she is asymptomatic. She has an appointment with a lye bath operator today to either increase the diltiazem start a beta-kami or do something else. Last Recorded V/S: Last Vital Signs Temp 36.6 C 04/12/20 22:44 Pulse 105 H 04/12/20 23:11 Resp 26 H 04/12/20 22:44 BP 145/84 H 04/12/20 23:11 Pulse Ox 95 04/12/20 23:11 - Orders/Labs/Meds Orders: Active Orders 24 hr Category Date Time Status EKG Documentation Completion [RC] AM Care 04/12/20 22:40 Active Sodium Chloride 0.9% [Saline Flush] Med 04/12/20 22:40 Active 10 ml FLUSH ASDIRECTED PRN Sodium Chloride 0.9% [Saline Flush] Med 04/12/20 22:40 Active 2.5 ml FLUSH ASDIRECTED PRN Saline Lock Insert [OM.PC] Stat Oth 04/12/20 22:41 Ordered Medication Orders Sodium Chloride (Saline Flush) 10 ml FLUSH ASDIRECTED PRN PRN Reason: Keep Vein Open Sodium Chloride (Saline Flush) 2.5 ml FLUSH ASDIRECTED PRN PRN Reason: Keep Vein Open Labs: Laboratory Tests 04/12/20 04/12/20 Range/Units 22:39 22:39 WBC 15.34 H (4.0-11.0) K/uL RBC 4.95 (4.30-5.90) M/uL Hgb 13.7 (12.0-16.0) g/dL Hct 41.6 (36.0-46.0) % MCV 84.0 (80.0-98.0) fL MCH 27.7 (27.0-32.0) pg MCHC 32.9 (31.0-37.0) g/dL RDW Std Deviation 40.2 (28.0-62.0) fl RDW Coeff of Nacho 13 (11.0-15.0) % Plt Count 371 (150-400) K/uL MPV 11.00 (7.40-12.00) fL Neut % (Auto) 59.6 (48.0-80.0) % Lymph % (Auto) 31.0 (16.0-40.0) % [place] % (Auto) 6.6 (0.0-15.0) % Eos % (Auto) 2.5 (0.0-7.0) % Baso % (Auto) 0.3 (0.0-1.5) % Neut # (Auto) 9.2 H (1.4-5.7) K/uL Lymph # (Auto) 4.8 H (0.6-2.4) K/uL [place] # (Auto) 1.0 H (0.0-0.8) K/uL Eos # (Auto) 0.4 (0.0-0.7) K/uL Baso # (Auto) 0.0 (0.0-0.1) K/uL Nucleated RBC % 0.0 /100WBC Nucleated RBCs # 0 K/uL Sodium 137 (136-145) mmol/L Potassium 3.7 (3.5-5.1) mmol/L Chloride 100 (98-107) mmol/L Carbon Dioxide 26.3 (21.0-32.0) mmol/L BUN 13 (7.0-18.0) mg/dL Creatinine 0.8 (0.6-1.0) mg/dL Est Cr Clr Drug Dosing 69.50 mL/min Estimated GFR (MDRD) > 60.0 ml/min Glucose 254 H (74-106) mg/dL Calcium 9.3 (8.5-10.1) mg/dL Total Bilirubin 0.2 (0.2-1.0) mg/dL AST 47 H (15-37) IU/L ALT 75 H (14-63) IU/L Alkaline Phosphatase 179 H (46-116) U/L Troponin I < 0.050 (0.000-0.056) ng/mL Total Protein 7.9 (6.4-8.2) g/dL Albumin 3.5 (3.4-5.0) g/dL Globulin 4.4 H (2.6-4.0) g/dL Albumin/Globulin Ratio 0.8 L (0.9-1.6) Meds: Medications Generic Name Dose Route Start Last Admin Trade Name Freq PRN Reason Stop Dose Admin Sodium Chloride 10 ml 04/12/20 22:40 Saline Flush FLUSH ASDIRECTED PRN Keep Vein Open Sodium Chloride 2.5 ml 04/12/20 22:40 Saline Flush FLUSH ASDIRECTED PRN Keep Vein Open Departure - Departure Time of Disposition: 23:53 Disposition: Home, Self-Care 01 Condition: Good Clinical Impression: Palpitations - Discharge Information Instructions: Palpitations, [id number] Referrals: Leonard Reynolds MD [Primary Care Provider] - Additional Instructions: Hope with your lye bath operator as advised. It might be nice to tell him that icewater slows your palpitations because this might be a significant clue. Your enzymes are slightly elevated and you should review your medications with your primary doctor because of this. [facility] [address] [place] [id number] [id number] The following information is given to patients seen in the emergency department who are being discharged to home. This information is to outline your options for follow-up care. We provide all patients seen in our emergency department with a follow-up referral. The need for follow-up, as well as the timing and circumstances, are variable depending upon the specifics of your emergency department visit. If you don't have a primary care physician on staff, we will provide you with a referral. We always advise you to contact your personal physician following an emergency department visit to inform them of the circumstance of the visit and for follow-up with them and/or the need for any referrals to a consulting specialist. The emergency department will also refer you to a specialist when appropriate. This referral assures that you have the opportunity for follow-up care with a specialist. All of these measure are taken in an effort to provide you with optimal care, which includes your follow-up. Under all circumstances we always encourage you to contact your private physician who remains a resource for coordinating your care. When calling for follow-up care, please make the office aware that this follow-up is from your recent emergency room visit. If for any reason you are refused follow-up, please contact the [facility] at and asked to speak to the emergency department charge nurse. Sepsis Event Note (ED) - Focused Exam Vital Signs: Vital Signs Temp Pulse Resp BP Pulse Ox 04/12/20 23:11 105 H 145/84 H 95 04/12/20 22:44 36.6 C 133 H 26 H 198/96 H 97 - My Orders Last 24 Hours: My Active Orders 04/12/20 22:40 EKG Documentation Completion [RC] AM Sodium Chloride 0.9% [Saline Flush] 10 ml FLUSH ASDIRECTED PRN Sodium Chloride 0.9% [Saline Flush] 2.5 ml FLUSH ASDIRECTED PRN 04/12/20 22:41 Saline Lock Insert [OM.PC] Stat - Assessment/Plan Last 24 Hours: My Active Orders 04/12/20 22:40 EKG Documentation Completion [RC] AM Sodium Chloride 0.9% [Saline Flush] 10 ml FLUSH ASDIRECTED PRN Sodium Chloride 0.9% [Saline Flush] 2.5 ml FLUSH ASDIRECTED PRN 04/12/20 22:41 Saline Lock Insert [OM.PC] Stat
[2020-04-12 23:09] LABS: BLOOD UREA NITROGEN,BUN 13 mg/dL (7.0-18.0); CARBON DIOXIDE,CO2 26.3 mmol/L (21.0-32.0); CHLORIDE,CL 100 mmol/L (98-107); GLUCOSE RANDOM 254 mg/dL (74-106); POTASSIUM,K 3.7 mmol/L (3.5-5.1); SODIUM,NA 137 mmol/L (136-145)
[2020-04-12 23:12] VITALS: BP 145/84; PULSE 105
== END 2020-04-13 00:09 | disposition home or self-care (01) ==
LOC: MW.ED 22:31
DX: R00.2 Palpitations (principal); J45.909 Unspecified asthma, uncomplicated; E10.9 Type 1 diabetes mellitus without complications; R00.0 Tachycardia, unspecified; Z88.0 Allergy status to penicillin; Z88.1 Allergy status to other antibiotic agents; Z88.8 Allergy status to other drugs, medicaments and biological substances; Z88.2 Allergy status to sulfonamides; Z79.82 Long term (current) use of aspirin; Z79.899 Other long term (current) drug therapy
CPT/HCPCS: 36415; 80053; 84484; 85025; 93005; 93010; 99283; 99285-25

== ENCOUNTER 2020-05-04 07:17 | Emergency (ER) | payer BC ==
[2020-05-04 07:40] VITALS: BP 160/89; PULSE 103
[2020-05-04] MEDS ORDERED: Sodium Chloride 0.9% 2.5 ML Syringe FLUSH PRN (08:04)
[2020-05-04] MEDS ORDERED: Sodium Chloride 0.9% 10 ML Syringe FLUSH PRN (08:04)
[2020-05-04] MEDS ORDERED: Lactated Ringers 1,000 ML IV ONE (08:04)
[2020-05-04] MEDS ORDERED: Morphine 4 MG/ML Syringe IVPUSH ONE (08:08)
--- NOTE | 2020-05-04 08:19 | EDM.PDOC ---
ED HPI GENERAL MEDICAL PROBLEM - General Chief Complaint: General Stated Complaint: PAIN UNDER RIBCAGE RADIATING TO BACK; HEADACHE Time Seen by Provider: 05/04/20 07:34 Source of Information: Reports: Patient History Limitations: Reports: No Limitations - History of Present Illness INITIAL COMMENTS - FREE TEXT/NARRATIVE: 45-year-old female with history of AZ, CAD with 3 stents, DM presents with acute onset left anterior rib pain after violent coughing 3 days ago. She was previously diagnosed with Covid in January and has had residual cough since. 3 days ago she was coughing violently and noted acute onset pleuritic and reproducible pain underneath the left breast, pain is severe, radiates along the rib to the lateral flank, sharp, intermittent with coughing only, exacerbated with coughing, palpation, movement, alleviated with taking shallow breaths and at rest. Her PCP started her on azithromycin for 2 weeks yesterday for "residual pneumonia ". She had her third coronary stent placed [address] Bell and [place], her next follow-up appointment is in 3 months. She is currently on aspirin and Brilinta. ROS: A 10-point review of systems, other than pertinent positives and negatives as stated per HPI, is otherwise negative Past medical history: No additional pertinent history Past Surgical history: No additional pertinent history Social history: No additional pertinent history Family history: No additional pertinent history PHYSICAL EXAM General: AOx4, GCS = 15, moderate distress HEENT: dry mucous membrane Neck: supple, no meningismus, no Kernig or Brudzinski Cardiac: S1S2 tachycardia Chest wall: Reproducible tenderness to the left anterior lower ribs, no flail chest Respiratory: CTAB, no crackles or rales, no wheezing Abdomen: Soft, nontender, no rebound or guarding, nondistended, no pulsatile mass. Back: nontender Musculoskeletal: NVI distally, no deformity Neuro: No focal deficits, CN 2 - 12 WNL. left upper abdomen Pain Score (Numeric/FACES): 4 - Related Data Allergies Allergy/AdvReac Type Severity Reaction Status Date / Time amoxicillin Allergy Shortness Verified 05/04/20 07:40 of Breath cefdinir [From Omnicef] Allergy Shortness Verified 05/04/20 07:40 of Breath Penicillins Allergy Shortness Verified 05/04/20 07:40 of Breath pentosan polysulfate sodium Allergy Tachycardia Verified 05/04/20 07:40 [From Elmiron] prochlorperazine Allergy Shortness Verified 05/04/20 07:40 [From Compazine] of Breath Sulfa (Sulfonamide Allergy Shortness Verified 05/04/20 07:40 Antibiotics) of Breath sulfamethoxazole Allergy Shortness Verified 05/04/20 07:40 [From Bactrim] of Breath tetracycline Allergy Shortness Verified 05/04/20 07:40 of Breath trimethoprim [From Bactrim] Allergy Shortness Verified 05/04/20 07:40 of Breath Home Meds: Home Meds Budesonide/Formoterol [Symbicort 160-4.5 MCG] 2 puff INH DAILY 03/24/16 [History] Insulin Lispro [Humalog] 1 pump SQ ASDIRECTED 03/24/16 [History] Losartan [Cozaar] 10 mg PO DAILY 03/24/16 [History] Aspirin 81 mg PO DAILY 02/12/20 [History] Ondansetron [Zofran] 4 mg PO Q8H PRN #15 tab 02/12/20 [Rx] Ticagrelor [Brilinta] 90 mg PO BID 02/12/20 [History] Diltiazem HCl [Cardizem LA] 04/12/20 [History] Past Medical History - Past Health History Medical/Surgical History: Denies Medical/Surgical History HEENT History: Reports: None Cardiovascular History: Reports: High Cholesterol, Hypertension, [place], Stents Respiratory History: Reports: Asthma Gastrointestinal History: Reports: None Genitourinary History: Reports: Other (See Below) Other Genitourinary History: interstital cystitis per pt COTTON FACTOR History: Reports: Musculoskeletal History: Reports: None Other Musculoskeletal History: cervical dissectomy Neurological History: Reports: None Psychiatric History: Reports: None Endocrine/Metabolic History: Reports: Diabetes, Type I Insulin Pump Model and Human Resources Admin: TSlim Hematologic History: Reports: None Immunologic History: Reports: None Oncologic (Cancer) History: Reports: None Dermatologic History: Reports: None - Infectious Disease History Infectious Disease History: Reports: Chicken Pox, Measles, Mumps, Novel Coronavirus - Past Surgical History Head Surgeries/Procedures: Reports: None HEENT Surgical History: Reports: None Cardiovascular Surgical History: Reports: None Other Cardiovascular Surgeries/Procedures: 3 stents Respiratory Surgical History: Reports: None GI Surgical History: Reports: None Female Surgical History: Reports: Section Endocrine Surgical History: Reports: None Neurological Surgical History: Reports: None Musculoskeletal Surgical History: Reports: None Oncologic Surgical History: Reports: None Dermatological Surgical History: Reports: None Social & Family History - Family History Family Medical History: No Pertinent Family History - Tobacco Use Tobacco Use Status *Q: Never Tobacco User - Caffeine Use Caffeine Use: Reports: Soda - Recreational Drug Use Recreational Drug Use: No ED ROS GENERAL - Review of Systems Review Of Systems: See Below (see dictation) ED EXAM, GENERAL - Physical Exam Exam: See Below (see dictation) #1 Interpretation EKG Interpretation Comments: Heart rate = 103 bpm, sinus tachycardia, normal QRS interval, no STEMI. EKG and rhythm strip interpreted by me at 0812 Course - Vital Signs Last Recorded V/S: Last Vital Signs Temp 97.1 F 05/04/20 07:36 Pulse 103 H 05/04/20 07:36 Resp 16 05/04/20 07:36 BP 160/89 H 05/04/20 07:36 Pulse Ox 98 05/04/20 07:36 - Orders/Labs/Meds Orders: Active Orders 24 hr Category Date Time Status Cardiac Monitoring [RC] . DIRECTED Care 05/04/20 08:04 Active EKG Documentation Completion [RC] STAT Care 05/04/20 08:05 Active Pulse Oximetry [RC] ASDIRECTED Care 05/04/20 08:04 Active CULTURE URINE [RM] Stat Lab 05/04/20 08:10 Received TROPONIN I [CHEM] Routine Lab 05/04/20 11:00 Ordered Labs: Laboratory Tests 05/04/20 05/04/20 05/04/20 Range/Units 08:10 08:45 08:45 WBC 9.44 (4.0-11.0) K/uL RBC 4.68 (4.30-5.90) M/uL Hgb 13.1 (12.0-16.0) g/dL Hct 39.6 (36.0-46.0) % MCV 84.6 (80.0-98.0) fL MCH 28.0 (27.0-32.0) pg MCHC 33.1 (31.0-37.0) g/dL RDW Std Deviation 40.8 (28.0-62.0) fl RDW Coeff of Nacho 13 (11.0-15.0) % Plt Count 368 (150-400) K/uL MPV 10.50 (7.40-12.00) fL Neut % (Auto) 55.5 (48.0-80.0) % Lymph % (Auto) 33.2 (16.0-40.0) % Lamb % (Auto) 7.2 (0.0-15.0) % Eos % (Auto) 3.6 (0.0-7.0) % Baso % (Auto) 0.5 (0.0-1.5) % Neut # (Auto) 5.2 (1.4-5.7) K/uL Lymph # (Auto) 3.1 H (0.6-2.4) K/uL Lamb # (Auto) 0.7 (0.0-0.8) K/uL Eos # (Auto) 0.3 (0.0-0.7) K/uL Baso # (Auto) 0.1 (0.0-0.1) K/uL Nucleated RBC % 0.0 /100WBC Nucleated RBCs # 0 K/uL Sodium 137 (136-145) mmol/L Potassium 4.0 (3.5-5.1) mmol/L Chloride 102 (98-107) mmol/L Carbon Dioxide 24.6 (21.0-32.0) mmol/L BUN 12 (7.0-18.0) mg/dL Creatinine 0.8 (0.6-1.0) mg/dL Est Cr Clr Drug Dosing 69.50 mL/min Estimated GFR (MDRD) > 60.0 ml/min Glucose 198 H (74-106) mg/dL Calcium 9.4 (8.5-10.1) mg/dL Total Bilirubin 0.4 (0.2-1.0) mg/dL AST 106 H (15-37) IU/L ALT 165 H (14-63) IU/L Alkaline Phosphatase 150 H (46-116) U/L Troponin I < 0.050 (0.000-0.056) ng/mL B-Natriuretic Peptide (<100) PG/ML Total Protein 7.3 (6.4-8.2) g/dL Albumin 3.4 (3.4-5.0) g/dL Globulin 3.9 (2.6-4.0) g/dL Albumin/Globulin Ratio 0.9 (0.9-1.6) Urine Color YELLOW Urine Appearance CLEAR Urine pH 7.0 (5.0-8.0) Ur Specific Ellerbe 1.010 (1.001-1.035) Urine Protein NEGATIVE (NEGATIVE) mg/dL Urine Glucose (UA) NEGATIVE (NEGATIVE) mg/dL Urine Ketones NEGATIVE (NEGATIVE) mg/dL Urine Occult Blood NEGATIVE (NEGATIVE) Urine Nitrite NEGATIVE (NEGATIVE) Urine Bilirubin NEGATIVE (NEGATIVE) Urine Urobilinogen 0.2 (<2.0) EU/dL Ur Leukocyte Esterase TRACE H (NEGATIVE) Urine RBC 0-1 (0-2/HPF) Urine WBC 0-3 (0-5/HPF) Ur Epithelial Cells FEW (NONE-FEW) Urine Bacteria FEW (NEGATIVE) 05/04/20 Range/Units 08:45 WBC (4.0-11.0) K/uL RBC (4.30-5.90) M/uL Hgb (12.0-16.0) g/dL Hct (36.0-46.0) % MCV (80.0-98.0) fL MCH (27.0-32.0) pg MCHC (31.0-37.0) g/dL RDW Std Deviation (28.0-62.0) fl RDW Coeff of Nacho (11.0-15.0) % Plt Count (150-400) K/uL MPV (7.40-12.00) fL Neut % (Auto) (48.0-80.0) % Lymph % (Auto) (16.0-40.0) % Lamb % (Auto) (0.0-15.0) % Eos % (Auto) (0.0-7.0) % Baso % (Auto) (0.0-1.5) % Neut # (Auto) (1.4-5.7) K/uL Lymph # (Auto) (0.6-2.4) K/uL Lamb # (Auto) (0.0-0.8) K/uL Eos # (Auto) (0.0-0.7) K/uL Baso # (Auto) (0.0-0.1) K/uL Nucleated RBC % /100WBC Nucleated RBCs # K/uL Sodium (136-145) mmol/L Potassium (3.5-5.1) mmol/L Chloride (98-107) mmol/L Carbon Dioxide (21.0-32.0) mmol/L BUN (7.0-18.0) mg/dL Creatinine (0.6-1.0) mg/dL Est Cr Clr Drug Dosing mL/min Estimated GFR (MDRD) ml/min Glucose (74-106) mg/dL Calcium (8.5-10.1) mg/dL Total Bilirubin (0.2-1.0) mg/dL AST (15-37) IU/L ALT (14-63) IU/L Alkaline Phosphatase (46-116) U/L Troponin I (0.000-0.056) ng/mL B-Natriuretic Peptide 15 (<100) PG/ML Total Protein (6.4-8.2) g/dL Albumin (3.4-5.0) g/dL Globulin (2.6-4.0) g/dL Albumin/Globulin Ratio (0.9-1.6) Urine Color Urine Appearance Urine pH (5.0-8.0) Ur Specific Ellerbe (1.001-1.035) Urine Protein (NEGATIVE) mg/dL Urine Glucose (UA) (NEGATIVE) mg/dL Urine Ketones (NEGATIVE) mg/dL Urine Occult Blood (NEGATIVE) Urine Nitrite (NEGATIVE) Urine Bilirubin (NEGATIVE) Urine Urobilinogen (<2.0) EU/dL Ur Leukocyte Esterase (NEGATIVE) Urine RBC (0-2/HPF) Urine WBC (0-5/HPF) Ur Epithelial Cells (NONE-FEW) Urine Bacteria (NEGATIVE) Meds: Medications Discontinued Medications Generic Name Dose Route Start Last Admin Trade Name Freq PRN Reason Stop Dose Admin Fentanyl 50 mcg 05/04/20 09:02 05/04/20 09:18 Fentanyl .XX 05/04/20 09:03 Not Given ONETIME ONE Lactated Ringer's 1,000 mls @ 999 mls/hr 05/04/20 08:04 05/04/20 09:04 Ringers, Lactated IV 05/04/20 09:04 Not Given .BOLUS ONE Morphine Sulfate 4 mg 05/04/20 08:08 05/04/20 09:03 Morphine IVPUSH 05/04/20 08:09 Not Given ONETIME ONE Ondansetron HCl 4 mg 05/04/20 08:41 05/04/20 09:04 Zofran IVPUSH 05/04/20 08:42 Not Given ONETIME ONE Oxycodone/Acetaminophen 1 tab 05/04/20 08:53 05/04/20 09:18 Percocet 325-5 Mg PO 05/04/20 08:54 Not Given ONETIME ONE Sodium Chloride 10 ml 05/04/20 08:04 Saline Flush FLUSH ASDIRECTED PRN Keep Vein Open Sodium Chloride 2.5 ml 05/04/20 08:04 Saline Flush FLUSH ASDIRECTED PRN Keep Vein Open - Re-Assessments/Exams Free Text/Narrative Re-Assessment/Exam: 05/04/20 10:00 Patient is choosing to leave against medical advice prior to getting her second troponin. I personally explained to the patient that choosing to do so may result in permanent bodily harm or . I discussed at great length that without further evaluation and monitoring there may be unforeseen circumstances and deterioration causing permanent bodily harm or as a result of their choice. The patient is alert, oriented, and competent at this time. The patient states that they are aware of the serious risks as explained, but they still choose to leave against medical advice. The patient is aware that they did not allow us to complete their evaluation, and there is still the possibility that an emergency condition could exist. This has been thoroughly explained to the patient and the patient has indicated your understanding of such. The patient is assuming all risk and liability for such a condition, or for such a condition subsequently developing. The patient is doing so at their own free will, with a full knowledge of the potential consequences of these actions. The patient was encouraged to return at any time should they experience any changes about evaluation, or should they develop any new or worsening symptoms that concerns them. MEDICAL DECISION MAKING: I reviewed the patients past medical records, lab and radiographic findings. I discussed the case with the patient. My differential diagnosis included: Chest wall strain, ACS, Pneumonia, PE, pulmonary edema/CHF, aortic dissection, pericarditis, intra-abdominal process. Given the clinical history of acute pleuritic and reproducible pain that came on after coughing, my suspicion for chest wall strain is very high. Her physical exam is consistent with it, she had reproducible tenderness to the left lower anterior rib where she was complaining of pain. My suspicion for ACS is low but given her recent history of AZ and stents, she underwent delta troponin testing in the ER. Her EKG and clinical history does not suggest pericarditis. There is no evidence of pneumothorax or infiltrate on CT Chest. Aortic dissection was considered, however the presenting symptoms were uncharacteristic of aortic dissection. CT Chest shows no evidence of mediastinal widening and there are strong, equal and symmetric pulses. Given the current presentation, I do not suspect aortic dissection. The patients history, chest X-ray, and exam do not suggest pulmonary edema/congestive heart failure. Pulmonary embolism was considered but felt unlikely given acute onset history in relation to couging. Intra-abdominal pathology felt unlikely given benign/non tender abdominal exam. Acute coronary syndrome was considered but there are negative biomarker, no acute ischemic EKG changes. Based on this, I feel that there is low risk for short-term major adverse cardiac event. I offered her second set of troponin for serial trending given her recent cardiac stent, she was informed of the need to trend her troponin to look for changes which were indicative of cardiac injury. She declined and signed out AGAINST MEDICAL ADVICE Departure - Departure Time of Disposition: 10:24 Disposition: Against Medical Advice 07 Condition: Good Clinical Impression: Chest pain - Discharge Information Instructions: Nonspecific Chest Pain, Adult Referrals: Leonard Reynolds MD [Primary Care Provider] - Forms: ED Department Discharge, Refusal of Care AMA Sepsis Event Note (ED) - Evaluation Sepsis Screening Result: No Definite Risk - Focused Exam Vital Signs: Vital Signs Temp Pulse Resp BP Pulse Ox 05/04/20 07:36 97.1 F 103 H 16 160/89 H 98 - My Orders Last 24 Hours: My Active Orders 05/04/20 08:04 Cardiac Monitoring [RC] . DIRECTED Pulse Oximetry [RC] ASDIRECTED 05/04/20 08:05 EKG Documentation Completion [RC] STAT 05/04/20 08:10 CULTURE URINE [RM] Stat 05/04/20 11:00 TROPONIN I [CHEM] Routine - Assessment/Plan Last 24 Hours: My Active Orders 05/04/20 08:04 Cardiac Monitoring [RC] . DIRECTED Pulse Oximetry [RC] ASDIRECTED 05/04/20 08:05 EKG Documentation Completion [RC] STAT 05/04/20 08:10 CULTURE URINE [RM] Stat 05/04/20 11:00 TROPONIN I [CHEM] Routine
[2020-05-04] MEDS ORDERED: Ondansetron 4 MG/2 ML SDV IVPUSH ONE (08:41)
[2020-05-04] MEDS ORDERED: Acetaminophen/oxyCODONE 325-5 MG Tab PO ONE (08:53)
--- NOTE | 2020-05-04 08:56 | CT ---
INDICATION: Left-sided chest pain from coughing COMPARISON: None TECHNIQUE: : CT examination of the chest was performed without contrast. Thin axial sections were obtained from above the apices of the lungs to the lung bases. Please note that all CT scans at this facility use dose modulation, iterative reconstruction, and/or weight-based dosing when appropriate to reduce radiation dose to as low as reasonably achievable. FINDINGS: : HEART and MEDIASTINUM: The heart size is normal. There is no mediastinal or hilar adenopathy or mass. There is no pericardial effusion.There are atherosclerotic vascular calcifications including the coronary system. LUNGS: The lungs show no focal consolidation or mass. The airways appear normal. Trace basilar atelectasis. A few tiny nodules in the 1-2 millimeter range likely benign. PLEURAL SPACES: There is no pleural effusion, pneumothorax or pleural based mass. VISUALIZED UPPER ABDOMEN: The limited visualized upper abdominal structures appear normal. OSSEOUS STRUCTURES: Age-appropriate appearance. No acute fracture or destructive process. TUBES and LINES: None. IMPRESSION: There is no visible etiology for left-sided chest pain. No pneumothorax. No visible rib fracture. Trace basilar atelectasis. A few tiny nodules likely benign. Significant atherosclerosis identified including the coronary system. Please note that all CT scans at this facility use dose modulation, iterative reconstruction, and/or weight-based dosing when appropriate to reduce radiation dose to as low as reasonably achievable. Dictated by Edgard Akbar MD @ May 04 2020 8:48AM Signed by Dr. Edgard Akbar @ May 04 2020 8:55AM
[2020-05-04] MEDS ORDERED: fentaNYL 50 MCG/ML SDV ONE (09:02)
[2020-05-04 09:32] LABS: BLOOD UREA NITROGEN,BUN 12 mg/dL (7.0-18.0); CARBON DIOXIDE,CO2 24.6 mmol/L (21.0-32.0); CHLORIDE,CL 102 mmol/L (98-107); GLUCOSE RANDOM 198 mg/dL (74-106); SODIUM,NA 137 mmol/L (136-145)
== END 2020-05-04 10:04 | disposition left against medical advice (07) ==
LOC: MW.ED 07:17
DX: R07.9 Chest pain, unspecified (principal); R05 Cough; E10.9 Type 1 diabetes mellitus without complications; I10 Essential (primary) hypertension; I25.2 Old myocardial infarction; J45.909 Unspecified asthma, uncomplicated; Z88.0 Allergy status to penicillin; Z88.1 Allergy status to other antibiotic agents; Z88.8 Allergy status to other drugs, medicaments and biological substances; Z88.2 Allergy status to sulfonamides; Z79.82 Long term (current) use of aspirin; Z79.899 Other long term (current) drug therapy
CPT/HCPCS: 71250; 71250-26; 80053; 81001; 83880; 84484; 85025; 87086; 93005; 93010; 99284; 99284-25

== ENCOUNTER 2020-12-15 06:04 | Emergency (ER) | payer BC ==
--- NOTE | 2020-12-15 06:57 | EDM.PDOC ---
ED HPI GENERAL MEDICAL PROBLEM - General Chief Complaint: ENT Problem Stated Complaint: ABSCESSED TOOTH Time Seen by Provider: 12/15/20 06:52 Source of Information: Reports: Patient History Limitations: Reports: No Limitations - History of Present Illness INITIAL COMMENTS - FREE TEXT/NARRATIVE: 45-year-old female presents with dental abscess for 3 months. She is currently on Brilinta 90mcg twice daily and aspirin given her history of [place], and her PCP plans to refer her to OMFS at [facility] today. She is requesting antibiotics at this time. Patient denies fever, chills, headache, chest pain, shortness of breath, abdominal pain, focal numbness or weakness. ROS: A 10-point review of systems, other than pertinent positives and negatives as stated per HPI, is otherwise negative Past medical history: No additional pertinent history Past Surgical history: No additional pertinent history Social history: No additional pertinent history Family history: No additional pertinent history PHYSICAL EXAM General: AOx4, GCS = 15, No distress HEENT: dry mucous membrane, induration and tenderness to tooth #32 Neck: supple, no meningismus, no Kernig or Brudzinski Cardiac: S1S2 RRR Respiratory: CTAB, no crackles or rales, no wheezing Abdomen: Soft, nontender, no rebound or guarding, nondistended, no pulsatile mass. Back: nontender Musculoskeletal: NVI distally, no deformity Neuro: No focal deficits, CN 2 - 12 WNL. Right Lower Oral/Mouth Pain Score (Numeric/FACES): 8 - Related Data Allergies Allergy/AdvReac Type Severity Reaction Status Date / Time amoxicillin Allergy Shortness Verified 05/04/20 07:40 of Breath cefdinir [From Omnicef] Allergy Shortness Verified 05/04/20 07:40 of Breath Penicillins Allergy Shortness Verified 05/04/20 07:40 of Breath pentosan polysulfate sodium Allergy Tachycardia Verified 05/04/20 07:40 [From Elmiron] prochlorperazine Allergy Shortness Verified 05/04/20 07:40 [From Compazine] of Breath Sulfa (Sulfonamide Allergy Shortness Verified 05/04/20 07:40 Antibiotics) of Breath sulfamethoxazole Allergy Shortness Verified 05/04/20 07:40 [From Bactrim] of Breath tetracycline Allergy Shortness Verified 05/04/20 07:40 of Breath trimethoprim [From Bactrim] Allergy Shortness Verified 05/04/20 07:40 of Breath Home Meds: Home Meds Budesonide/Formoterol [Symbicort 160-4.5 MCG] 2 puff INH DAILY 03/24/16 [History] Insulin Lispro [Humalog] 1 pump SQ ASDIRECTED 03/24/16 [History] Losartan [Cozaar] 10 mg PO DAILY 03/24/16 [History] Aspirin 81 mg PO DAILY 02/12/20 [History] Ticagrelor [Brilinta] 90 mg PO BID 02/12/20 [History] Azithromycin [Zithromax] 250 mg PO DAILY #6 tab 12/15/20 [Rx] Nebivolol HCl [Bystolic] 5 mg PO DAILY 12/15/20 [History] Past Medical History - Past Health History Medical/Surgical History: Denies Medical/Surgical History HEENT History: Reports: None Cardiovascular History: Reports: High Cholesterol, Hypertension, [place], Stents Respiratory History: Reports: Asthma Gastrointestinal History: Reports: None Genitourinary History: Reports: Other (See Below) Other Genitourinary History: interstital cystitis per pt CAD APPLICATION SUPPORT SPECIALIST History: Reports: Musculoskeletal History: Reports: None Other Musculoskeletal History: cervical dissectomy Neurological History: Reports: None Psychiatric History: Reports: None Endocrine/Metabolic History: Reports: Diabetes, Type I Insulin Pump Model and Pediatric Psychiatrist: TSlim Hematologic History: Reports: None Immunologic History: Reports: None Oncologic (Cancer) History: Reports: None Dermatologic History: Reports: None - Infectious Disease History Infectious Disease History: Reports: Chicken Pox, Measles, Mumps, Novel Coronavirus - Past Surgical History Head Surgeries/Procedures: Reports: None HEENT Surgical History: Reports: None Cardiovascular Surgical History: Reports: None Other Cardiovascular Surgeries/Procedures: 3 stents Respiratory Surgical History: Reports: None GI Surgical History: Reports: None Female Surgical History: Reports: Section Endocrine Surgical History: Reports: None Neurological Surgical History: Reports: None Musculoskeletal Surgical History: Reports: None Oncologic Surgical History: Reports: None Dermatological Surgical History: Reports: None Social & Family History - Family History Family Medical History: No Pertinent Family History - Tobacco Use Tobacco Use Status *Q: Never Tobacco User Second Hand Smoke Exposure: No - Caffeine Use Caffeine Use: Reports: Soda - Recreational Drug Use Recreational Drug Use: No ED ROS GENERAL - Review of Systems Review Of Systems: See Below (see dictation) ED EXAM, GENERAL - Physical Exam Exam: See Below (see dictation) Course - Vital Signs Last Recorded V/S: Last Vital Signs Temp 97.8 F 12/15/20 06:14 Pulse 80 12/15/20 06:14 Resp 14 12/15/20 06:14 BP 134/80 12/15/20 06:14 Pulse Ox 96 12/15/20 06:14 Departure - Departure Time of Disposition: 06:54 Disposition: Home, Self-Care 01 Condition: Good Clinical Impression: Dental abscess - Discharge Information *PRESCRIPTION DRUG MONITORING PROGRAM REVIEWED*: Not Applicable *COPY OF PRESCRIPTION DRUG MONITORING REPORT IN PATIENT IRMA: Not Applicable Prescriptions: Azithromycin [Zithromax] 250 mg PO DAILY #6 tab Instructions: Dental Abscess, [id number] Referrals: Leonard Reynolds MD [Primary Care Provider] - 1 Day Additional Instructions: The need for follow-up, as well as the timing and circumstances, are variable depending upon the specifics of your emergency department visit. If you don't have a primary care physician on staff, we will provide you with a referral. We always advise you to contact your personal physician following an emergency department visit to inform them of the circumstance of the visit and for follow-up with them and/or the need for any referrals to a consulting specialist. The emergency department will also refer you to a specialist when appropriate. This referral assures that you have the opportunity for follow-up care with a specialist. All of these measure are taken in an effort to provide you with optimal care, which includes your follow-up. Under all circumstances we always encourage you to contact your private physician who remains a resource for coordinating your care. When calling for follow-up care, please make the office aware that this follow-up is from your recent emergency room visit. If for any reason you are refused follow-up, please contact the [facility] Emergency Department at and asked to speak to the emergency department charge nurse. If you do not have a primary care doctor, please follow up with the clinics below within 3-5 days. Romina [facility] [address] [place] [id number] [facility] [address] [place] [id number] Sepsis Event Note (ED) - Focused Exam Vital Signs: Vital Signs Temp Pulse Resp BP Pulse Ox 12/15/20 06:14 97.8 F 80 14 134/80 96
[2020-12-15 07:21] VITALS: BP 115/72; PULSE 82
== END 2020-12-15 07:20 | disposition home or self-care (01) ==
LOC: MW.ED 06:04
DX: K04.7 Periapical abscess without sinus (principal); E78.00 Pure hypercholesterolemia, unspecified; I10 Essential (primary) hypertension; I25.2 Old myocardial infarction; J45.909 Unspecified asthma, uncomplicated; E10.9 Type 1 diabetes mellitus without complications; Z88.0 Allergy status to penicillin; Z88.1 Allergy status to other antibiotic agents; Z88.8 Allergy status to other drugs, medicaments and biological substances; Z88.2 Allergy status to sulfonamides; Z79.82 Long term (current) use of aspirin; Z79.899 Other long term (current) drug therapy
CPT/HCPCS: 99282

== ENCOUNTER 2020-12-23 01:20 | Emergency (ER) | payer BC ==
[2020-12-23 01:34] VITALS: BP 177/94; PULSE 76
[2020-12-23] MEDS ORDERED: Ondansetron 4 MG Tab.DIS PO ONE (01:35)
--- NOTE | 2020-12-23 01:38 | EDM.PDOC ---
ED HPI GENERAL MEDICAL PROBLEM - General Chief Complaint: General Stated Complaint: ISSUES WITH RECENT ORAL SURGERY Time Seen by Provider: 12/23/20 01:21 Source of Information: Reports: Patient History Limitations: Reports: No Limitations - History of Present Illness INITIAL COMMENTS - FREE TEXT/NARRATIVE: Patient is a 45-year-old female presents today for nausea. Patient states that she had a wisdom teeth pulled and since then she been swallowing a little bit of blood in makes her feel nauseous. She has not had any vomiting. She also reports consistent pain from the with continued been poor. She was given Tylenol but is not working for the pain. The pain is mostly in her jaw hurts when she tries open her mouth or chew on that side. Pain is nonradiating. She denies any difficulty swallowing change in her voice or other symptoms. 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: Reports: Acetaminophen Right Lower Jaw Pain Score (Numeric/FACES): 8 - Related Data Allergies Allergy/AdvReac Type Severity Reaction Status Date / Time amoxicillin Allergy Shortness Verified 12/23/20 01:27 of Breath cefdinir [From Omnicef] Allergy Shortness Verified 12/23/20 01:27 of Breath Penicillins Allergy Shortness Verified 12/23/20 01:27 of Breath pentosan polysulfate sodium Allergy Tachycardia Verified 12/23/20 01:27 [From Elmiron] prochlorperazine Allergy Shortness Verified 12/23/20 01:27 [From Compazine] of Breath Sulfa (Sulfonamide Allergy Shortness Verified 12/23/20 01:27 Antibiotics) of Breath sulfamethoxazole Allergy Shortness Verified 12/23/20 01:27 [From Bactrim] of Breath tetracycline Allergy Shortness Verified 12/23/20 01:27 of Breath trimethoprim [From Bactrim] Allergy Shortness Verified 12/23/20 01:27 of Breath Home Meds: Home Meds Budesonide/Formoterol [Symbicort 160-4.5 MCG] 2 puff INH DAILY 03/24/16 [History] Insulin Lispro [Humalog] 1 pump SQ ASDIRECTED 03/24/16 [History] Losartan [Cozaar] 10 mg PO DAILY 03/24/16 [History] Aspirin 81 mg PO DAILY 02/12/20 [History] Ticagrelor [Brilinta] 90 mg PO BID 02/12/20 [History] Azithromycin [Zithromax] 250 mg PO DAILY #6 tab 12/15/20 [Rx] Nebivolol HCl [Bystolic] 5 mg PO DAILY 12/15/20 [History] Past Medical History - Past Health History Medical/Surgical History: Denies Medical/Surgical History HEENT History: Reports: None Cardiovascular History: Reports: High Cholesterol, Hypertension, [place], Stents Respiratory History: Reports: Asthma Gastrointestinal History: Reports: None Genitourinary History: Reports: Other (See Below) Other Genitourinary History: interstital cystitis per pt MANAGEMENT AIDE History: Reports: Musculoskeletal History: Reports: None Other Musculoskeletal History: cervical dissectomy Neurological History: Reports: None Psychiatric History: Reports: None Endocrine/Metabolic History: Reports: Diabetes, Type I 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 Pump Model and Roll 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: TSlim Hematologic History: Reports: None Immunologic History: Reports: None Oncologic (Cancer) History: Reports: None Dermatologic History: Reports: None - Infectious Disease History Infectious Disease History: Reports: Chicken Pox, Measles, Mumps, Novel Coronavirus - Past Surgical History Head Surgeries/Procedures: Reports: None HEENT Surgical History: Reports: None Cardiovascular Surgical History: Reports: None Other Cardiovascular Surgeries/Procedures: 3 stents Respiratory Surgical History: Reports: None GI Surgical History: Reports: None Female Surgical History: Reports: Section Endocrine Surgical History: Reports: None Neurological Surgical History: Reports: None Musculoskeletal Surgical History: Reports: None Oncologic Surgical History: Reports: None Dermatological Surgical History: Reports: None Social & Family History - Family History Family Medical History: No Pertinent Family History - Caffeine Use Caffeine Use: Reports: Soda ED ROS GENERAL - Review of Systems Review Of Systems: See Below Constitutional: Reports: No Symptoms HEENT: Reports: Dental Pain Respiratory: Reports: No Symptoms Cardiovascular: Reports: No Symptoms Endocrine: Reports: No Symptoms GI/Abdominal: Reports: No Symptoms : Reports: No Symptoms Musculoskeletal: Reports: No Symptoms Skin: Reports: No Symptoms Neurological: Reports: No Symptoms Psychiatric: Reports: No Symptoms Hematologic/Lymphatic: Reports: No Symptoms Immunologic: Reports: No Symptoms ED EXAM, GENERAL - Physical Exam Exam: See Below Exam Limited By: No Limitations General Appearance: Alert, WD/WN, No Apparent Distress Eye Exam: Bilateral Eye: EOMI, PERRL Ears: Normal External Exam, Normal Canal Nose: Normal Inspection Throat/Mouth: Normal Inspection, Normal Lips, Normal Teeth Head: Atraumatic Neck: Normal Inspection Respiratory/Chest: No Respiratory Distress Extremities: Normal Inspection Neurological: Alert, Oriented, CN II-XII Intact, Normal Cognition, Normal Gait Course - Vital Signs Last Recorded V/S: Last Vital Signs Temp 97.4 F 12/23/20 01:28 Pulse 76 12/23/20 01:28 Resp 18 12/23/20 01:28 BP 177/94 H 12/23/20 01:28 Pulse Ox 97 12/23/20 01:28 - Orders/Labs/Meds Meds: Medications Discontinued Medications Generic Name Dose Route Start Last Admin Trade Name Freq PRN Reason Stop Dose Admin Ondansetron HCl 4 mg 12/23/20 01:35 12/23/20 01:40 Ondansetron 4 Mg Tab.Dis PO 12/23/20 01:36 4 mg ONETIME ONE Administration - Re-Assessments/Exams Free Text/Narrative Re-Assessment/Exam: 12/23/20 01:57 Patient states she feels better with the Zofran. We will send patient on prescription and have patient call her dentist tomorrow for pain meds. Departure - Departure Time of Disposition: 01:58 Disposition: Home, Self-Care 01 Condition: Good Clinical Impression: History of recent dental procedure - Discharge Information *PRESCRIPTION DRUG MONITORING PROGRAM REVIEWED*: Not Applicable *COPY OF PRESCRIPTION DRUG MONITORING REPORT IN PATIENT IRMA: Not Applicable Referrals: Leonard Reynolds MD [Primary Care Provider] - Forms: ED Department Discharge Additional Instructions: The following information is given to patients seen in the emergency department who are being discharged to home. This information is to outline your options for follow-up care. We provide all patients seen in our emergency department with a follow-up referral. The need for follow-up, as well as the timing and circumstances, are variable depending upon the specifics of your emergency department visit. If you don't have a primary care physician on staff, we will provide you with a referral. We always advise you to contact your personal physician following an emergency department visit to inform them of the circumstance of the visit and for follow-up with them and/or the need for any referrals to a consulting specialist. The emergency department will also refer you to a specialist when appropriate. This referral assures that you have the opportunity for follow-up care with a specialist. All of these measure are taken in an effort to provide you with optimal care, which includes your follow-up. Under all circumstances we always encourage you to contact your private physician who remains a resource for coordinating your care. When calling for follow-up care, please make the office aware that this follow-up is from your recent emergency room visit. If for any reason you are refused follow-up, please contact the [facility] Emergency Department at and asked to speak to the emergency department charge nurse. Please follow up with your primary care physician. If you do not have a primary care physician, see below: [facility] [address] [place] [id number] [facility] [address] [place] [id number] You were seen today for nausea at your dental procedure. We gave you medication called Zofran which helped improve your nausea. We also continue home with some to your pharmacy. Please call your needs tomorrow for the pain medicine. Have any other concerning signs or symptoms please return to the ED. Sepsis Event Note (ED) - Focused Exam Vital Signs: Vital Signs Temp Pulse Resp BP Pulse Ox 12/23/20 01:28 97.4 F 76 18 177/94 H 97 - Assessment/Plan Plan: Patient is a 45-year-old female presents today for nausea after having wisdom teeth extracted. She has some slight pain but drove here and does not want to change her pain her doctor will give her tramadol tomorrow. We will prescribe some Zofran and reassess.
== END 2020-12-23 02:09 | disposition home or self-care (01) ==
LOC: MW.ED 01:20
DX: R11.0 Nausea (principal); R68.84 Jaw pain; I10 Essential (primary) hypertension; I25.2 Old myocardial infarction; J45.909 Unspecified asthma, uncomplicated; E10.9 Type 1 diabetes mellitus without complications; Z98.818 Other dental procedure status; Z86.16 Personal history of COVID-19; Z88.0 Allergy status to penicillin; Z88.1 Allergy status to other antibiotic agents; Z88.8 Allergy status to other drugs, medicaments and biological substances; Z88.2 Allergy status to sulfonamides; Z79.82 Long term (current) use of aspirin; Z79.899 Other long term (current) drug therapy
CPT/HCPCS: 99283; A9270

== ENCOUNTER 2021-03-22 18:52 | Emergency (ER) | payer BC ==
--- NOTE | 2021-03-22 19:03 | EDM.PDOC ---
ED HPI GENERAL MEDICAL PROBLEM - General Stated Complaint: VOMITTING, DIARRHEA Time Seen by Provider: 03/22/21 18:54 Source of Information: Reports: Patient History Limitations: Reports: No Limitations - History of Present Illness INITIAL COMMENTS - FREE TEXT/NARRATIVE: HISTORY AND PHYSICAL: History of present illness: Patient is a 46-year-old female who presents to the emergency room with complaints of nausea, vomiting and diarrhea. She states symptoms started yesterday with the nausea and vomiting. She was "up all night" due to diarrhea, which seems to have improved this afternoon. She does not have any abdominal pain or tenderness. She is a type I diabetic, stating her sugars were in the 300s this morning but since have gone down to 150s. She is concerned she may be dehydrated. She did take 1 leftover Zofran she had available to her this morning and did feel this helped improved her symptoms for a short while. Patient denies any fever, chills, headache, change in vision, syncope or near syncope. Denies any chest pain, back pain, shortness of breath or cough. Denies any flank pain, constipation, dysuria, or concern for . Has not noted any blood in urine or stool. No recent travel or sick contacts. Review of systems: As per history of present illness and below otherwise all systems reviewed and negative. Past medical history: As per history of present illness and as reviewed below otherwise noncontributory. Surgical history: As per history of present illness and as reviewed below otherwise noncontributory. Social history: See social history for further information Family history: As per history of present illness and as reviewed below otherwise noncontributory. Physical exam: General: Well developed and well nourished 46-year-old female. Alert and orientated x 3. Nontoxic in appearance and in no acute distress. Vital signs are stable and have been reviewed by me. Nursing notes were reviewed. HEENT: Atraumatic, normocephalic, pupils equal and reactive bilaterally, negative for conjunctival pallor or scleral icterus, mucous membranes moist, TMs normal bilaterally, throat clear, neck supple, nontender, trachea midline. No drooling or trismus noted. No meningeal signs. No hot potato voice noted. Lungs: Clear to auscultation bilaterally. No wheezes, rales, or rhonchi. Chest nontender. Normal work of breathing, no accessory muscles used. Heart: S1S2, regular rate and rhythm without overt murmur, gallops, or rubs. No JVD. No peripheral edema Abdomen: Soft, nondistended, nontender. Normoactive bowel sounds. Negative for masses or costovertebral tenderness. Skin: Intact, warm, dry. No lesions or rashes noted. Hematologic: No petechiae or purpra. Mucosa appropriate color and normal nail bed color and refill. Extremities: Atraumatic, moves all extremities per self without difficulty or deficits, negative for cords or calf pain. Neurovascular unremarkable. Neuro: Awake, alert, oriented. Cranial nerves II through XII unremarkable. Cer ebellum unremarkable. Motor and sensory unremarkable throughout. Exam nonfocal. Psychiatric: Mood and affect are appropriate. Normal thought process. Answering questions appropriately. Please note that the patient was seen and evaluated during the 2019 SARS-CoV-2 novel coronavirus pandemic period. Community viral transmission is ongoing at time of this encounter and the emergency department is operating under pandemic response procedures. Medical Decision Making: Patient is a 46-year-old female who presents to the emergency room with complaints of nausea, vomiting and diarrhea. Patient is a type I diabetic and states her blood sugars are now normal (currently 150) but she is concerned she may be dehydrated. Physical exam shows she is slightly tachycardic with a rate of 110's. I will get an EKG to compare with baseline as she does have a cardiac history. 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 She denies any abdominal pain, chest pain or shortness of breath. Abdomen, chest, flanks are nontender. She is agreeable to basic lab work at this time. EKG shows a rate of 117 with normal sinus rhythm. No concern for ST elevation. Patient does have a leukocytosis. I did talk with the patient about doing a CT of the abdomen and pelvis to rule out cause for her elevated white count, other than her n/v. We discussed risks vs benefits. At this time she would like to hold off and does not want the radiation exposure, which I am okay with at this time. I have talked with the patient about today's findings, and patient has several questions about her health history. She does become tearful and states that she is thinking she has increased anxiety due to her previous heart attack. States "it was a near experience for me". She states that she does get worked up and feels nervous about coming to the hospital but is relieved that her symptoms have improved. Again we did discuss the CT of the abdomen and pelvis but she would hold off on this but would return if symptoms got worse or any new symptoms develop. She continues to deny any abdominal pain, chest pain or back pain. Reassessment at the time of disposition demonstrates that the patient is in no acute distress. She has left over Zofran at home she wishes to use. The patient is stable for discharge, counseling was provided and we discussed in great detail signs and symptoms that would prompt them to return to the Emergency Department. Medication, follow up and supportive care measures were reviewed and discussed. Voices understanding and is agreeable to plan of care. Denies any further questions or concerns at this time. Diagnostics: CBC, CMP, lipase, UA, COVID-19, EKG Therapeutics: IV fluid, Zofran Prescription: None Impression: Nausea and vomiting Plan: 1. You were evaluated today on an emergent basis. Your EKG showed no concerning findings today. If your nausea/vomiting worsens or you develop abdominal pain, please return to the ED as we discussed for the CT of abdomen and pelvis. [place] diet, advance as tolerated. Monitor you blood sugars closely until you feel you are back to normal. 2. You can alternate Tylenol and ibuprofen as needed for pain and fever management. 3. We encourage you to follow up with your primary care provider and/or recommended specialist in the next few days for re-evaluation and further care/management. 4. If your symptoms should worsen, new symptoms develop or any of the signs and symptoms we discussed should arise please return to the emergency room or call 911 (if needed). Definitive disposition and diagnosis as appropriate pending reevaluation and review of above. - Related Data Allergies Allergy/AdvReac Type Severity Reaction Status Date / Time amoxicillin Allergy Shortness Verified 12/23/20 01:27 of Breath cefdinir [From Omnicef] Allergy Shortness Verified 12/23/20 01:27 of Breath Penicillins Allergy Shortness Verified 12/23/20 01:27 of Breath pentosan polysulfate sodium Allergy Tachycardia Verified 12/23/20 01:27 [From Elmiron] prochlorperazine Allergy Shortness Verified 12/23/20 01:27 [From Compazine] of Breath Sulfa (Sulfonamide Allergy Shortness Verified 12/23/20 01:27 Antibiotics) of Breath sulfamethoxazole Allergy Shortness Verified 12/23/20 01:27 [From Bactrim] of Breath tetracycline Allergy Shortness Verified 12/23/20 01:27 of Breath trimethoprim [From Bactrim] Allergy Shortness Verified 12/23/20 01:27 of Breath Home Meds: Home Meds Budesonide/Formoterol [Symbicort 160-4.5 MCG] 2 puff INH DAILY 03/24/16 [History] Insulin Lispro [Humalog] 1 pump SQ ASDIRECTED 03/24/16 [History] Losartan [Cozaar] 10 mg PO DAILY 03/24/16 [History] Aspirin 81 mg PO DAILY 02/12/20 [History] Ticagrelor [Brilinta] 90 mg PO BID 02/12/20 [History] Azithromycin [Zithromax] 250 mg PO DAILY #6 tab 12/15/20 [Rx] Nebivolol HCl [Bystolic] 5 mg PO DAILY 12/15/20 [History] Ondansetron [Zofran ODT] 4 mg PO Q6H PRN 5 Days #20 tab.dis 12/23/20 [Rx] Past Medical History - Past Health History Medical/Surgical History: Denies Medical/Surgical History HEENT History: Reports: None Cardiovascular History: Reports: High Cholesterol, Hypertension, NC, Stents Respiratory History: Reports: Asthma Gastrointestinal History: Reports: None Genitourinary History: Reports: Other (See Below) Other Genitourinary History: interstital cystitis per pt [employer]ADER History: Reports: Musculoskeletal History: Reports: None Other Musculoskeletal History: cervical dissectomy Neurological History: Reports: None Psychiatric History: Reports: None Endocrine/Metabolic History: Reports: Diabetes, Type I 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 Hematologic History: Reports: None Immunologic History: Reports: None Oncologic (Cancer) History: Reports: None Dermatologic History: Reports: None - Infectious Disease History Infectious Disease History: Reports: Chicken Pox, Measles, Mumps, Novel Coronavirus - Past Surgical History Head Surgeries/Procedures: Reports: None HEENT Surgical History: Reports: None Cardiovascular Surgical History: Reports: None Other Cardiovascular Surgeries/Procedures: 3 stents Respiratory Surgical History: Reports: None GI Surgical History: Reports: None Female Surgical History: Reports: Section Endocrine Surgical History: Reports: None Neurological Surgical History: Reports: None Musculoskeletal Surgical History: Reports: None Oncologic Surgical History: Reports: None Dermatological Surgical History: Reports: None Social & Family History - Family History Family Medical History: No Pertinent Family History - Caffeine Use Caffeine Use: Reports: None ED ROS GENERAL - Review of Systems Review Of Systems: Comprehensive ROS is negative, except as noted in HPI. ED EXAM, GI/ABD - Physical Exam Exam: See Below (See dictation) Course - Vital Signs Last Recorded V/S: Last Vital Signs Temp 97.8 F 03/22/21 18:59 Pulse 129 H 03/22/21 18:59 Resp 18 03/22/21 18:59 BP 170/95 H 03/22/21 18:59 Pulse Ox 96 03/22/21 18:59 - Orders/Labs/Meds Orders: Active Orders 24 hr Category Date Time Status Abdomen Pelvis w Cont [CT] Stat Exams 03/22/21 19:25 Stop Req Labs: Laboratory Tests 03/22/21 03/22/21 03/22/21 Range/Units 19:10 19:10 19:10 WBC 14.56 H (4.0-11.0) K/uL RBC 4.94 (4.30-5.90) M/uL Hgb 14.0 (12.0-16.0) g/dL Hct 40.9 (36.0-46.0) % MCV 82.8 (80.0-98.0) fL MCH 28.3 (27.0-32.0) pg MCHC 34.2 (31.0-37.0) g/dL RDW Std Deviation 40.7 (28.0-62.0) fl RDW Coeff of Nacho 14 (11.0-15.0) % Plt Count 402 H (150-400) K/uL MPV 11.10 (7.40-12.00) fL Neut % (Auto) 52.7 (48.0-80.0) % Lymph % (Auto) 39.1 (16.0-40.0) % [place] % (Auto) 5.6 (0.0-15.0) % Eos % (Auto) 2.3 (0.0-7.0) % Baso % (Auto) 0.3 (0.0-1.5) % Neut # (Auto) 7.7 H (1.4-5.7) K/uL Lymph # (Auto) 5.7 H (0.6-2.4) K/uL [place] # (Auto) 0.8 (0.0-0.8) K/uL Eos # (Auto) 0.3 (0.0-0.7) K/uL Baso # (Auto) 0.0 (0.0-0.1) K/uL Nucleated RBC % 0.0 /100WBC Nucleated RBCs # 0 K/uL Sodium 136 (136-145) mmol/L Potassium 3.8 (3.5-5.1) mmol/L Chloride 96 L (98-107) mmol/L Carbon Dioxide 28.5 (21.0-32.0) mmol/L BUN 16 (7.0-18.0) mg/dL Creatinine 1.0 (0.6-1.0) mg/dL Est Cr Clr Drug Dosing 55.01 mL/min Estimated GFR (MDRD) 59.4 ml/min Glucose 169 H (74-106) mg/dL Calcium 9.3 (8.5-10.1) mg/dL Total Bilirubin 0.3 (0.2-1.0) mg/dL AST 84 H (15-37) IU/L ALT 192 H (14-63) IU/L Alkaline Phosphatase 204 H (46-116) U/L Total Protein 8.1 (6.4-8.2) g/dL Albumin 3.9 (3.4-5.0) g/dL Globulin 4.2 H (2.6-4.0) g/dL Albumin/Globulin Ratio 0.9 (0.9-1.6) Lipase 65 L (73-393) U/L Urine Color Urine Appearance Urine pH (5.0-8.0) Ur Specific [place] (1.001-1.035) Urine Protein (NEGATIVE) mg/dL Urine Glucose (UA) (NEGATIVE) mg/dL Urine Ketones (NEGATIVE) mg/dL Urine Occult Blood (NEGATIVE) Urine Nitrite (NEGATIVE) Urine Bilirubin (NEGATIVE) Urine Urobilinogen (<2.0) EU/dL Ur Leukocyte Esterase (NEGATIVE) Urine HCG, Qual (NEGATIVE) Influenza Type A RNA NEGATIVE (NEGATIVE) Influenza Type B RNA NEGATIVE (NEGATIVE) SARS-CoV-2 RNA (ANTHONY) NEGATIVE (NEGATIVE) 03/22/21 03/22/21 Range/Units 19:30 19:30 WBC (4.0-11.0) K/uL RBC (4.30-5.90) M/uL Hgb (12.0-16.0) g/dL Hct (36.0-46.0) % MCV (80.0-98.0) fL MCH (27.0-32.0) pg MCHC (31.0-37.0) g/dL RDW Std Deviation (28.0-62.0) fl RDW Coeff of Nacho (11.0-15.0) % Plt Count (150-400) K/uL MPV (7.40-12.00) fL Neut % (Auto) (48.0-80.0) % Lymph % (Auto) (16.0-40.0) % [place] % (Auto) (0.0-15.0) % Eos % (Auto) (0.0-7.0) % Baso % (Auto) (0.0-1.5) % Neut # (Auto) (1.4-5.7) K/uL Lymph # (Auto) (0.6-2.4) K/uL [place] # (Auto) (0.0-0.8) K/uL Eos # (Auto) (0.0-0.7) K/uL Baso # (Auto) (0.0-0.1) K/uL Nucleated RBC % /100WBC Nucleated RBCs # K/uL Sodium (136-145) mmol/L Potassium (3.5-5.1) mmol/L Chloride (98-107) mmol/L Carbon Dioxide (21.0-32.0) mmol/L BUN (7.0-18.0) mg/dL Creatinine (0.6-1.0) mg/dL Est Cr Clr Drug Dosing mL/min Estimated GFR (MDRD) ml/min Glucose (74-106) mg/dL Calcium (8.5-10.1) mg/dL Total Bilirubin (0.2-1.0) mg/dL AST (15-37) IU/L ALT (14-63) IU/L Alkaline Phosphatase (46-116) U/L Total Protein (6.4-8.2) g/dL Albumin (3.4-5.0) g/dL Globulin (2.6-4.0) g/dL Albumin/Globulin Ratio (0.9-1.6) Lipase (73-393) U/L Urine Color YELLOW Urine Appearance CLEAR Urine pH 6.5 (5.0-8.0) Ur Specific [place] <= 1.005 (1.001-1.035) Urine Protein NEGATIVE (NEGATIVE) mg/dL Urine Glucose (UA) NEGATIVE (NEGATIVE) mg/dL Urine Ketones NEGATIVE (NEGATIVE) mg/dL Urine Occult Blood NEGATIVE (NEGATIVE) Urine Nitrite NEGATIVE (NEGATIVE) Urine Bilirubin NEGATIVE (NEGATIVE) Urine Urobilinogen 0.2 (<2.0) EU/dL Ur Leukocyte Esterase NEGATIVE (NEGATIVE) Urine HCG, Qual NEGATIVE (NEGATIVE) Influenza Type A RNA (NEGATIVE) Influenza Type B RNA (NEGATIVE) SARS-CoV-2 RNA (ANTHONY) (NEGATIVE) Meds: Medications Discontinued Medications Generic Name Dose Route Start Last Admin Trade Name Freq PRN Reason Stop Dose Admin Sodium Chloride 1,000 mls @ 999 mls/hr 03/22/21 19:04 03/22/21 19:14 Normal Saline IV 03/22/21 20:04 999 mls/hr STAT ONE Administration Lorazepam 0.5 mg 03/22/21 20:06 03/22/21 20:13 Lorazepam 0.5 Mg Tab PO 03/22/21 20:07 0.5 mg ONETIME ONE Administration Ondansetron HCl 4 mg 03/22/21 19:04 03/22/21 19:14 Ondansetron 4 Mg/2 Ml Sdv IVPUSH 03/22/21 19:05 4 mg ONETIME ONE Administration Departure - Departure Time of Disposition: 20:13 Disposition: Home, Self-Care 01 Clinical Impression: Nausea and vomiting Qualifiers: Vomiting type: unspecified Qualified Code(s): R11.2 - Nausea with vomiting, unspecified - Discharge Information Instructions: Nausea and Vomiting, Adult, [id number] Referrals: Leonard Reynolds MD [Primary Care Provider] - Additional Instructions: The following information is given to patients seen in the emergency department who are being discharged to home. This information is to outline your options for follow-up care. We provide all patients seen in our emergency department with a follow-up referral. The need for follow-up, as well as the timing and circumstances, are variable depending upon the specifics of your emergency department visit. If you don't have a primary care physician on staff, we will provide you with a referral. We always advise you to contact your personal physician following an emergency department visit to inform them of the circumstance of the visit and for follow-up with them and/or the need for any referrals to a consulting specialist. The emergency department will also refer you to a specialist when appropriate. This referral assures that you have the opportunity for follow-up care with a specialist. All of these measure are taken in an effort to provide you with optimal care, which includes your follow-up. Under all circumstances we always encourage you to contact your private physician who remains a resource for coordinating your care. When calling for follow-up care, please make the office aware that this follow-up is from your recent emergency room visit. If for any reason you are refused follow-up, please contact the [facility] Emergency Department at and asked to speak to the emergency department charge nurse. [facility] [address] [place] [address] [place] [address] Thank you for choosing the [facility] emergency department in [place] for your medical needs today. It was a pleasure caring for you. Today you were seen in the emergency department for nausea, vomiting and diarrhea. 1. You were evaluated today on an emergent basis. Your EKG showed no concerning findings today. If your nausea/vomiting worsens or you develop abdominal pain, please return to the ED as we discussed for the CT of abdomen and pelvis. [place] diet, advance as tolerated. Monitor you blood sugars closely until you feel you are back to normal. 2. You can alternate Tylenol and ibuprofen as needed for pain and fever management. 3. We encourage you to follow up with your primary care provider and/or recommended specialist in the next few days for re-evaluation and further care/management. 4. If your symptoms should worsen, new symptoms develop or any of the signs and symptoms we discussed should arise please return to the emergency room or call 911 (if needed). Sepsis Event Note (ED) - Focused Exam Vital Signs: Vital Signs Temp Pulse Resp BP Pulse Ox 03/22/21 18:59 97.8 F 129 H 18 170/95 H 96 - My Orders Last 24 Hours: My Active Orders 03/22/21 19:25 Abdomen Pelvis w Cont [CT] Stat - Assessment/Plan Last 24 Hours: My Active Orders 03/22/21 19:25 Abdomen Pelvis w Cont [CT] Stat
[2021-03-22] MEDS ORDERED: Ondansetron 4 MG/2 ML SDV IVPUSH ONE (19:04)
[2021-03-22] MEDS ORDERED: Sodium Chloride 0.9% 1,000 ML IV ONE (19:04)
[2021-03-22 19:38] LABS: CARBON DIOXIDE,CO2 28.5 mmol/L (21.0-32.0); POTASSIUM,K 3.8 mmol/L (3.5-5.1)
--- NOTE | 2021-03-22 19:46 | PCM.EKG ---
#1 Interpretation EKG Date: 03/22/21 Time: 19:10 Rhythm: NSR Rate (Beats/Min): 117 [place]: Normal P-Wave: Present QRS: Normal ST-T: Normal QT: Normal Comparison: No Change (05/04/20) EKG Interpretation Comments: Sinus Tachycardia
[2021-03-22 19:54] LABS: CORONAVIRUS COVID-19 NAA NEGATIVE (NEGATIVE); INFLUENZA A NAA NEGATIVE (NEGATIVE); INFLUENZA B NAA NEGATIVE (NEGATIVE)
[2021-03-22] MEDS ORDERED: LORazepam 0.5 MG Tab PO ONE (20:06)
[2021-03-22 20:28] VITALS: BP 145/97; PULSE 81
== END 2021-03-22 20:28 | disposition home or self-care (01) ==
LOC: MW.ED 18:52
DX: R11.2 Nausea with vomiting, unspecified (principal); E10.9 Type 1 diabetes mellitus without complications; E78.00 Pure hypercholesterolemia, unspecified; I10 Essential (primary) hypertension; I25.2 Old myocardial infarction; Z95.5 Presence of coronary angioplasty implant and graft; Z88.0 Allergy status to penicillin; Z88.1 Allergy status to other antibiotic agents; Z88.2 Allergy status to sulfonamides; Z88.8 Allergy status to other drugs, medicaments and biological substances; Z79.82 Long term (current) use of aspirin; Z79.02 Long term (current) use of antithrombotics/antiplatelets; Z20.822 Contact with and (suspected) exposure to COVID-19
CPT/HCPCS: 0240U; 36415; 80053; 81003; 81025; 83690; 85025; 93005; 96374; 99284; A9270; J2405; J7030

== ENCOUNTER 2021-04-12 08:27 | Emergency (ER) | payer BC ==
[2021-04-12 08:37] VITALS: BP 147/85; PULSE 102
[2021-04-12 09:17] LABS: CORONAVIRUS COVID-19 NAA NEGATIVE (NEGATIVE); INFLUENZA A NAA NEGATIVE (NEGATIVE); INFLUENZA B NAA NEGATIVE (NEGATIVE)
== END 2021-04-12 09:37 | disposition home or self-care (01) ==
LOC: MW.ED 08:27
DX: B34.9 Viral infection, unspecified (principal); I10 Essential (primary) hypertension; I25.2 Old myocardial infarction; E10.9 Type 1 diabetes mellitus without complications; Z20.822 Contact with and (suspected) exposure to COVID-19; Z88.0 Allergy status to penicillin; Z88.8 Allergy status to other drugs, medicaments and biological substances; Z88.2 Allergy status to sulfonamides; Z79.4 Long term (current) use of insulin; Z79.82 Long term (current) use of aspirin
CPT/HCPCS: 0240U; 99283

== ENCOUNTER 2021-06-26 22:19 | Emergency (ER) | payer BC ==
[2021-06-26] MEDS ORDERED: Sodium Chloride 0.9% 1,000 ML IV ONE (22:42)
[2021-06-26] MEDS ORDERED: Ondansetron 4 MG/2 ML SDV IVPUSH ONE (22:42)
[2021-06-26] MEDS ORDERED: Ciprofloxacin 500 MG Tab PO STA (23:18)
[2021-06-26 23:54] VITALS: BP 135/86; PULSE 91
== END 2021-06-26 23:54 | disposition home or self-care (01) ==
LOC: MW.ED 22:19
DX: N39.0 Urinary tract infection, site not specified (principal); I10 Essential (primary) hypertension; E10.9 Type 1 diabetes mellitus without complications; J45.909 Unspecified asthma, uncomplicated; E78.00 Pure hypercholesterolemia, unspecified; E66.9 Obesity, unspecified; Z68.41 Body mass index [BMI] 40.0-44.9, adult; Z88.0 Allergy status to penicillin; Z88.2 Allergy status to sulfonamides; Z88.8 Allergy status to other drugs, medicaments and biological substances; Z88.1 Allergy status to other antibiotic agents; Z79.82 Long term (current) use of aspirin; Z79.4 Long term (current) use of insulin; Z79.899 Other long term (current) drug therapy
CPT/HCPCS: 80053; 81001; 81025; 83690; 85025; 87086; 96374; 99284; A9270; J2405; J7030

== ENCOUNTER 2021-10-11 06:33 | Emergency (ER) | payer BC ==
[2021-10-11] MEDS ORDERED: Sodium Chloride 0.9% 1,000 ML IV ONE ×2 (07:12)
[2021-10-11] MEDS ORDERED: Ondansetron 4 MG/2 ML SDV IVPUSH ONE (07:12)
[2021-10-11 08:16] LABS: CARBON DIOXIDE,CO2 23.1 mmol/L (21.0-32.0); POTASSIUM,K 3.8 mmol/L (3.5-5.1)
[2021-10-11 08:51] VITALS: BP 146/81; PULSE 92
== END 2021-10-11 08:49 | disposition home or self-care (01) ==
LOC: MW.ED 06:33
DX: E10.65 Type 1 diabetes mellitus with hyperglycemia (principal); E78.00 Pure hypercholesterolemia, unspecified; I10 Essential (primary) hypertension; Z79.4 Long term (current) use of insulin; Z79.899 Other long term (current) drug therapy; Z88.0 Allergy status to penicillin; Z88.8 Allergy status to other drugs, medicaments and biological substances
CPT/HCPCS: 36415; 80053; 81003; 82009; 83735; 84703; 85025; 96361; 96374; 99284; J2405; J7030

== ENCOUNTER 2021-10-17 20:03 | Emergency (ER) | payer BC ==
[2021-10-17] MEDS: Sodium Chloride 0.9% 1,000 ML IV ONE (21:00)
[2021-10-17 21:47] LABS: CARBON DIOXIDE,CO2 27.2 mmol/L (21.0-32.0); POTASSIUM,K 4.4 mmol/L (3.5-5.1)
[2021-10-17 23:20] VITALS: BP 139/79; PULSE 106
== END 2021-10-17 23:20 | disposition home or self-care (01) ==
LOC: MW.ED 20:03
DX: R00.2 Palpitations (principal); E78.00 Pure hypercholesterolemia, unspecified; I10 Essential (primary) hypertension; I25.2 Old myocardial infarction; E10.9 Type 1 diabetes mellitus without complications; E66.9 Obesity, unspecified; Z68.36 Body mass index [BMI] 36.0-36.9, adult; Z95.5 Presence of coronary angioplasty implant and graft; Z88.0 Allergy status to penicillin; Z88.1 Allergy status to other antibiotic agents; Z88.8 Allergy status to other drugs, medicaments and biological substances; Z79.4 Long term (current) use of insulin; Z79.899 Other long term (current) drug therapy; Z79.82 Long term (current) use of aspirin; Z79.02 Long term (current) use of antithrombotics/antiplatelets
CPT/HCPCS: 36415; 80053; 80305; 81003; 81025; 84439; 84443; 84484; 85025; 85379; 93005; 96360; 99285; J7030; 93010; 99283

== ENCOUNTER 2021-11-03 00:32 | Emergency (ER) | payer BC ==
[2021-11-03] MEDS ORDERED: Sodium Chloride 0.9% 10 ML Syringe FLUSH PRN (01:04)
[2021-11-03] MEDS ORDERED: Sodium Chloride 0.9% 1,000 ML IV ONE (01:04)
[2021-11-03] MEDS ORDERED: Sodium Chloride 0.9% 2.5 ML Syringe FLUSH PRN (01:04)
[2021-11-03] MEDS ORDERED: Ondansetron 4 MG/2 ML SDV IVPUSH ONE (01:23)
[2021-11-03 01:56] LABS: CARBON DIOXIDE,CO2 26.6 mmol/L (21.0-32.0); POTASSIUM,K 3.8 mmol/L (3.5-5.1)
[2021-11-03 02:37] VITALS: BP 137/86; PULSE 97
== END 2021-11-03 02:37 | disposition home or self-care (01) ==
LOC: MW.ED 00:32
DX: R00.2 Palpitations (principal); I10 Essential (primary) hypertension; R25.1 Tremor, unspecified; I25.2 Old myocardial infarction; E10.9 Type 1 diabetes mellitus without complications; T38.1X5A Adverse effect of thyroid hormones and substitutes, initial encounter; E66.9 Obesity, unspecified; Z68.30 Body mass index [BMI] 30.0-30.9, adult; Z86.16 Personal history of COVID-19; Z88.0 Allergy status to penicillin; Z88.1 Allergy status to other antibiotic agents; Z88.2 Allergy status to sulfonamides; Z79.899 Other long term (current) drug therapy; Z79.4 Long term (current) use of insulin; Z79.82 Long term (current) use of aspirin
CPT/HCPCS: 36415; 80053; 83735; 84439; 84443; 85025; 96361; 96374; 99283; J2405; J3490; J7030

== ENCOUNTER 2021-12-27 22:24 | Emergency (ER) | payer BC ==
[2021-12-27] MEDS ORDERED: Albuterol/Ipratropium 3.0-0.5 MG/3 ML Neb Soln NEB ONE (22:52)
[2021-12-27 23:11] LABS: CARBON DIOXIDE,CO2 27.1 mmol/L (21.0-32.0); POTASSIUM,K 3.9 mmol/L (3.5-5.1)
[2021-12-28 01:37] VITALS: BP 131/96; PULSE 76
== END 2021-12-28 00:05 | disposition home or self-care (01) ==
LOC: MW.ED 22:24
DX: J40 Bronchitis, not specified as acute or chronic (principal); I10 Essential (primary) hypertension; E78.00 Pure hypercholesterolemia, unspecified; E10.9 Type 1 diabetes mellitus without complications; Z79.899 Other long term (current) drug therapy; Z88.0 Allergy status to penicillin; Z88.2 Allergy status to sulfonamides; Z88.8 Allergy status to other drugs, medicaments and biological substances
CPT/HCPCS: 36415; 71045; 71045-26; 80053; 84484; 85025; 93005; 93010; 94640; 99284; 99285; J7620-GY

== ENCOUNTER 2022-04-01 06:03 | Emergency (ER) | payer BC ==
[2022-04-01 06:24] VITALS: BP 111/76; PULSE 100
== END 2022-04-01 07:15 | disposition left against medical advice (07) ==
LOC: MW.ED 06:03
DX: Z53.21 Procedure and treatment not carried out due to patient leaving prior to being seen by health care provider (principal)

== ENCOUNTER 2022-04-01 12:59 | Emergency (ER) | payer BC ==
[2022-04-01 13:19] VITALS: BP 136/78; PULSE 103
== END 2022-04-01 15:10 | disposition home or self-care (01) ==
LOC: MW.ED 12:59
DX: M54.2 Cervicalgia (principal); R51.9 Headache, unspecified; I10 Essential (primary) hypertension; I25.2 Old myocardial infarction; E10.9 Type 1 diabetes mellitus without complications; E66.9 Obesity, unspecified; Z68.41 Body mass index [BMI] 40.0-44.9, adult; Z88.0 Allergy status to penicillin; Z88.1 Allergy status to other antibiotic agents; Z88.2 Allergy status to sulfonamides; Z79.4 Long term (current) use of insulin; Z79.82 Long term (current) use of aspirin; Z79.899 Other long term (current) drug therapy; Z86.16 Personal history of COVID-19
CPT/HCPCS: 70450; 70450-26; 72125; 72125-26; 99283

== ENCOUNTER 2022-05-15 15:17 | Emergency (ER) | payer BC ==
[2022-05-15] MEDS ORDERED: Sodium Chloride 0.9% 1,000 ML IV ONE (15:37)
[2022-05-15] MEDS ORDERED: diphenhydrAMINE 50 MG/ML SDV IVPUSH ONE (15:37)
[2022-05-15] MEDS ORDERED: Hydrocortisone 1% Crm 30 GM Tube TOP ONE (16:09)
[2022-05-15 16:23] LABS: CARBON DIOXIDE,CO2 27.9 mmol/L (21.0-32.0); POTASSIUM,K 3.8 mmol/L (3.5-5.1)
[2022-05-15 17:29] VITALS: BP 135/76; PULSE 95
== END 2022-05-15 17:27 | disposition home or self-care (01) ==
LOC: MW.ED 15:17
DX: R21 Rash and other nonspecific skin eruption (principal); R00.2 Palpitations; R06.02 Shortness of breath; R07.89 Other chest pain; T38.1X5A Adverse effect of thyroid hormones and substitutes, initial encounter; I10 Essential (primary) hypertension; I25.2 Old myocardial infarction; J45.909 Unspecified asthma, uncomplicated; M19.90 Unspecified osteoarthritis, unspecified site; E10.9 Type 1 diabetes mellitus without complications; E03.9 Hypothyroidism, unspecified; I25.10 Atherosclerotic heart disease of native coronary artery without angina pectoris; E66.9 Obesity, unspecified; Z68.41 Body mass index [BMI] 40.0-44.9, adult; Z88.0 Allergy status to penicillin; Z88.1 Allergy status to other antibiotic agents; Z88.8 Allergy status to other drugs, medicaments and biological substances; Z88.2 Allergy status to sulfonamides; Z79.82 Long term (current) use of aspirin; Z79.899 Other long term (current) drug therapy
CPT/HCPCS: 36415; 71045; 71045-26; 80053; 84439; 84443; 84484; 84703; 85025; 85379; 93005; 96360; 99285-25; A9270-GY; J7030

== ENCOUNTER 2022-06-25 12:11 | Emergency (ER) | payer BC ==
[2022-06-25 12:38] VITALS: BP 132/86; PULSE 89
[2022-06-25] MEDS ORDERED: Ipratropium 0.02% 0.5 MG/2.5 ML Neb Soln NEB STA (12:51)
[2022-06-25] MEDS ORDERED: Albuterol 0.083% 2.5 MG/3 ML Neb Soln NEB STA (12:51)
== END 2022-06-25 14:24 | disposition home or self-care (01) ==
LOC: MW.ED 12:11
DX: J45.21 Mild intermittent asthma with (acute) exacerbation (principal); J01.90 Acute sinusitis, unspecified; B96.89 Other specified bacterial agents as the cause of diseases classified elsewhere; E03.9 Hypothyroidism, unspecified; I10 Essential (primary) hypertension; I25.2 Old myocardial infarction; E10.9 Type 1 diabetes mellitus without complications; Z79.02 Long term (current) use of antithrombotics/antiplatelets; Z88.0 Allergy status to penicillin; Z88.1 Allergy status to other antibiotic agents; Z88.8 Allergy status to other drugs, medicaments and biological substances; Z88.2 Allergy status to sulfonamides; Z79.82 Long term (current) use of aspirin; Z79.899 Other long term (current) drug therapy
CPT/HCPCS: 71046; 71046-26; 99285; J3490; J7620-GY

== ENCOUNTER 2022-06-27 20:52 | Emergency (ER) | payer BC ==
[2022-06-27] MEDS ORDERED: Sodium Chloride 0.9% 2.5 ML Syringe FLUSH PRN (21:08)
[2022-06-27] MEDS ORDERED: Sodium Chloride 0.9% 10 ML Syringe FLUSH PRN (21:08)
[2022-06-27] MEDS ORDERED: Sodium Chloride 0.9% 1,000 ML IV ONE (21:08)
[2022-06-27 22:35] LABS: CARBON DIOXIDE,CO2 24.3 mmol/L (21.0-32.0); POTASSIUM,K 3.8 mmol/L (3.5-5.1)
[2022-06-27 23:10] VITALS: BP 124/77; PULSE 92
== END 2022-06-27 23:10 | disposition home or self-care (01) ==
LOC: MW.ED 20:52
DX: E10.65 Type 1 diabetes mellitus with hyperglycemia (principal); J06.9 Acute upper respiratory infection, unspecified; I10 Essential (primary) hypertension; I25.2 Old myocardial infarction; J45.909 Unspecified asthma, uncomplicated; M19.90 Unspecified osteoarthritis, unspecified site; E03.9 Hypothyroidism, unspecified; E66.9 Obesity, unspecified; Z68.41 Body mass index [BMI] 40.0-44.9, adult; Z86.16 Personal history of COVID-19; Z88.1 Allergy status to other antibiotic agents; Z88.0 Allergy status to penicillin; Z88.8 Allergy status to other drugs, medicaments and biological substances; Z88.2 Allergy status to sulfonamides; Z79.82 Long term (current) use of aspirin; Z79.899 Other long term (current) drug therapy
CPT/HCPCS: 36415; 80053; 85025; 96360; 99283; J3490; J7030

== ENCOUNTER 2022-07-01 01:42 | Emergency (ER) | payer BC ==
[2022-07-01 02:11] VITALS: BP 151/81
[2022-07-01 03:18] VITALS: PULSE 89
== END 2022-07-01 03:15 | disposition home or self-care (01) ==
LOC: MW.ED 01:42
DX: J40 Bronchitis, not specified as acute or chronic (principal); E78.00 Pure hypercholesterolemia, unspecified; I25.2 Old myocardial infarction; E03.9 Hypothyroidism, unspecified; E10.9 Type 1 diabetes mellitus without complications; E66.9 Obesity, unspecified; Z68.38 Body mass index [BMI] 38.0-38.9, adult; Z88.0 Allergy status to penicillin; Z88.1 Allergy status to other antibiotic agents; Z88.8 Allergy status to other drugs, medicaments and biological substances; Z88.2 Allergy status to sulfonamides; Z79.4 Long term (current) use of insulin; Z79.899 Other long term (current) drug therapy; Z95.5 Presence of coronary angioplasty implant and graft
CPT/HCPCS: 71045; 71045-26; 99283

== ENCOUNTER 2022-08-20 16:35 | Emergency (ER) | payer BC ==
[2022-08-20] MEDS ORDERED: Ondansetron 4 MG/2 ML SDV IVPUSH ONE (16:56)
[2022-08-20] MEDS ORDERED: Aspirin 81 MG Tab.Chew PO ONE (16:56)
[2022-08-20] MEDS ORDERED: Sodium Chloride 0.9% 1,000 ML IV ONE (16:56)
[2022-08-20] MEDS ORDERED: Morphine 4 MG/ML Syringe IVPUSH ONE (16:56)
[2022-08-20 17:35] LABS: BASOPHILS PERCENT AUTO 0.2 % (0.0-1.5); EOSINOPHILS ABSOLUTE AUTO 0.4 K/uL (0.0-0.7); EOSINOPHILS PERCENT AUTO 2.3 % (0.0-7.0); HEMATOCRIT 38.3 % (36.0-46.0); HEMOGLOBIN 12.9 g/dL (12.0-16.0); LYMPHOCYTES ABSOLUTE AUTO 4.2 K/uL (0.6-2.4); LYMPHOCYTES PERCENT AUTO 27.4 % (16.0-40.0); MEAN CORPUSCULAR HEMOGLOBIN 27.2 pg (27.0-32.0); MEAN CORPUSCULAR HGB CONC 33.7 g/dL (31.0-37.0); MEAN CORPUSCULAR VOLUME 80.6 fL (80.0-98.0); MONOCYTES ABSOLUTE AUTO 0.8 K/uL (0.0-0.8); NEUTROPHILS PERCENT AUTO 65.1 % (48.0-80.0); NRBC ABSOLUTE 0 K/uL; PLATELET COUNT,PLT 384 K/uL (150-400); RED BLOOD CELL COUNT 4.75 M/uL (4.30-5.90); WHITE BLOOD CELL COUNT,WBC 15.32 K/uL (4.0-11.0)
[2022-08-20 18:08] LABS: A/G RATIO 0.9 (0.9-1.6); ALBUMIN 3.4 g/dL (3.4-5.0); BILIRUBIN TOTAL 0.2 mg/dL (0.2-1.0); CALCIUM 9.2 mg/dL (8.5-10.1); CREATININE 0.9 mg/dL (0.6-1.0); EST CRCL DRUG DOSING (CG) 60.46 mL/min; POTASSIUM,K 3.6 mmol/L (3.5-5.1); PROTEIN TOTAL,TP 7.3 g/dL (6.4-8.2); TSH ULTRASENSITIVE 3.6 uIU/mL (0.36-3.74)
[2022-08-20 20:08] VITALS: BP 136/71; PULSE 92
== END 2022-08-20 20:07 | disposition home or self-care (01) ==
LOC: MW.ED 16:35
DX: M94.0 Chondrocostal junction syndrome [Tietze] (principal); I25.2 Old myocardial infarction; J45.909 Unspecified asthma, uncomplicated; M19.90 Unspecified osteoarthritis, unspecified site; E10.9 Type 1 diabetes mellitus without complications; E03.9 Hypothyroidism, unspecified; E66.9 Obesity, unspecified; Z68.41 Body mass index [BMI] 40.0-44.9, adult; Z86.16 Personal history of COVID-19; Z88.1 Allergy status to other antibiotic agents; Z88.8 Allergy status to other drugs, medicaments and biological substances; Z88.0 Allergy status to penicillin; Z88.2 Allergy status to sulfonamides; Z79.82 Long term (current) use of aspirin; Z79.899 Other long term (current) drug therapy
CPT/HCPCS: 36415; 71045; 80053; 83880; 84443; 84484; 85025; 85379; 93005; 96360; 99285; J7030

== ENCOUNTER 2022-08-29 11:56 | Emergency (ER) | payer BC ==
[2022-08-29] MEDS ORDERED: Ondansetron 4 MG/2 ML SDV IVPUSH ONE (12:15)
[2022-08-29] MEDS ORDERED: Sodium Chloride 0.9% 1,000 ML IV ONE (12:15)
[2022-08-29 12:38] LABS: BASOPHILS PERCENT AUTO 0.3 % (0.0-1.5); EOSINOPHILS ABSOLUTE AUTO 0.4 K/uL (0.0-0.7); HEMATOCRIT 40.2 % (36.0-46.0); HEMOGLOBIN 13.5 g/dL (12.0-16.0); LYMPHOCYTES ABSOLUTE AUTO 4.2 K/uL (0.6-2.4); LYMPHOCYTES PERCENT AUTO 32.6 % (16.0-40.0); MEAN CORPUSCULAR HEMOGLOBIN 27.1 pg (27.0-32.0); MEAN CORPUSCULAR HGB CONC 33.6 g/dL (31.0-37.0); MEAN CORPUSCULAR VOLUME 80.7 fL (80.0-98.0); MONOCYTES ABSOLUTE AUTO 0.7 K/uL (0.0-0.8); MONOCYTES PERCENT AUTO 5.8 % (0.0-15.0); NEUTROPHILS ABSOLUTE AUTO 7.5 K/uL (1.4-5.7); NEUTROPHILS PERCENT AUTO 58.3 % (48.0-80.0); PLATELET COUNT,PLT 370 K/uL (150-400); RED BLOOD CELL COUNT 4.98 M/uL (4.30-5.90); WHITE BLOOD CELL COUNT,WBC 12.84 K/uL (4.0-11.0)
[2022-08-29 12:44] LABS: APPEARANCE,URINE CLEAR; BILIRUBIN,URINE NEGATIVE (NEGATIVE); COLOR,URINE YELLOW; GLUCOSE,URINE NEGATIVE (NEGATIVE); KETONES,URINE NEGATIVE (NEGATIVE); LEUKOCYTE ESTERASE,URINE NEGATIVE (NEGATIVE); NITRITE,URINE NEGATIVE (NEGATIVE); OCCULT BLOOD,URINE NEGATIVE (NEGATIVE); PROTEIN,URINE NEGATIVE (NEGATIVE); UROBILINOGEN,URINE 0.2 EU/dL (<2.0)
[2022-08-29 13:08] LABS: A/G RATIO 0.8 (0.9-1.6); ALBUMIN 3.6 g/dL (3.4-5.0); BILIRUBIN TOTAL 0.5 mg/dL (0.2-1.0); CALCIUM 9.2 mg/dL (8.5-10.1); CARBON DIOXIDE,CO2 26.1 mmol/L (21.0-32.0); CREATININE 0.9 mg/dL (0.6-1.0); EST CRCL DRUG DOSING (CG) 60.46 mL/min; POTASSIUM,K 4.1 mmol/L (3.5-5.1); PROTEIN TOTAL,TP 7.9 g/dL (6.4-8.2)
[2022-08-29 13:30] VITALS: BP 129/84; PULSE 70
== END 2022-08-29 13:28 | disposition home or self-care (01) ==
LOC: MW.ED 11:56
DX: I10 Essential (primary) hypertension (principal); I25.2 Old myocardial infarction; J45.909 Unspecified asthma, uncomplicated; M19.90 Unspecified osteoarthritis, unspecified site; E10.9 Type 1 diabetes mellitus without complications; E66.9 Obesity, unspecified; Z68.39 Body mass index [BMI] 39.0-39.9, adult; Z86.16 Personal history of COVID-19; Z98.890 Other specified postprocedural states; Z88.8 Allergy status to other drugs, medicaments and biological substances; Z88.0 Allergy status to penicillin; Z88.1 Allergy status to other antibiotic agents; Z88.2 Allergy status to sulfonamides; Z79.82 Long term (current) use of aspirin; Z79.899 Other long term (current) drug therapy
CPT/HCPCS: 36415; 71045; 80053; 81003; 85025; 96361; 96374; 99284; J2405; J7030; 93010

== ENCOUNTER 2022-11-12 01:39 | Emergency (ER) | payer BC ==
[2022-11-12] MEDS ORDERED: Aspirin 81 MG Tab.Chew PO ONE (01:59)
[2022-11-12] MEDS ORDERED: Sodium Chloride 0.9% 1,000 ML IV ONE (02:01)
[2022-11-12 02:07] LABS: BASOPHILS PERCENT AUTO 0.3 % (0.0-1.5); EOSINOPHILS ABSOLUTE AUTO 0.4 K/uL (0.0-0.7); EOSINOPHILS PERCENT AUTO 3.1 % (0.0-7.0); HEMOGLOBIN 12.7 g/dL (12.0-16.0); LYMPHOCYTES ABSOLUTE AUTO 5.4 K/uL (0.6-2.4); LYMPHOCYTES PERCENT AUTO 42.3 % (16.0-40.0); MEAN CORPUSCULAR HEMOGLOBIN 26.4 pg (27.0-32.0); MEAN CORPUSCULAR HGB CONC 32.6 g/dL (31.0-37.0); MEAN CORPUSCULAR VOLUME 81.1 fL (80.0-98.0); MONOCYTES PERCENT AUTO 7.6 % (0.0-15.0); NEUTROPHILS ABSOLUTE AUTO 5.9 K/uL (1.4-5.7); NEUTROPHILS PERCENT AUTO 46.7 % (48.0-80.0); NRBC ABSOLUTE 0 K/uL; PLATELET COUNT,PLT 365 K/uL (150-400); RED BLOOD CELL COUNT 4.81 M/uL (4.30-5.90); WHITE BLOOD CELL COUNT,WBC 12.73 K/uL (4.0-11.0)
[2022-11-12 02:15] LABS: INR < 0.93 (0.86-1.11); PTT,PARTIAL THROMBOPLSTIN TIME 27.8 SEC (23.9-30.7)
[2022-11-12] MEDS ORDERED: Ondansetron 4 MG/2 ML SDV IVPUSH ONE (02:28)
[2022-11-12 02:32] LABS: A/G RATIO 0.8 (0.9-1.6); ALBUMIN 3.4 g/dL (3.4-5.0); BILIRUBIN TOTAL 0.2 mg/dL (0.2-1.0); CARBON DIOXIDE,CO2 26.4 mmol/L (21.0-32.0); CREATININE 0.9 mg/dL (0.6-1.0); EST CRCL DRUG DOSING (CG) 66.01 mL/min; PROTEIN TOTAL,TP 7.6 g/dL (6.4-8.2)
[2022-11-12 03:11] VITALS: BP 144/89; PULSE 90
== END 2022-11-12 03:11 | disposition home or self-care (01) ==
LOC: MW.ED 01:39
DX: R07.9 Chest pain, unspecified (principal); J45.909 Unspecified asthma, uncomplicated; I25.2 Old myocardial infarction; E03.9 Hypothyroidism, unspecified; E10.9 Type 1 diabetes mellitus without complications; E66.9 Obesity, unspecified; Z68.39 Body mass index [BMI] 39.0-39.9, adult; Z88.0 Allergy status to penicillin; Z88.1 Allergy status to other antibiotic agents; Z88.2 Allergy status to sulfonamides; Z88.8 Allergy status to other drugs, medicaments and biological substances
CPT/HCPCS: 36415; 71045; 80053; 84484; 85025; 85610; 85730; 93005; 96361; 96374; 99285; A9270; J2405; J7030; 93010; 99284

== ENCOUNTER 2022-12-27 10:19 | Emergency (ER) | payer BC ==
[2022-12-27 10:54] VITALS: BP 148/78; PULSE 92
== END 2022-12-27 11:27 | disposition home or self-care (01) ==
LOC: MW.ED 10:19
DX: R07.89 Other chest pain (principal); I25.2 Old myocardial infarction; Z86.16 Personal history of COVID-19; Z88.8 Allergy status to other drugs, medicaments and biological substances; Z88.0 Allergy status to penicillin; Z88.1 Allergy status to other antibiotic agents; Z88.2 Allergy status to sulfonamides; Z79.82 Long term (current) use of aspirin; Z79.899 Other long term (current) drug therapy
CPT/HCPCS: 71101-26-LT; 71101-LT; 93010; 99283; 99284

== ENCOUNTER 2023-04-07 20:02 | Emergency (ER) | payer BC ==
[2023-04-07 20:29] LABS: BASOPHILS ABSOLUTE AUTO 0.08 K/uL (0.00-0.20); BASOPHILS PERCENT AUTO 0.5 % (0.0-1.0); EOSINOPHILS ABSOLUTE AUTO 0.63 K/uL (0.00-0.45); EOSINOPHILS PERCENT AUTO 4.1 % (0.0-6.0); HEMATOCRIT 36.8 % (37.0-47.0); HEMOGLOBIN 12.4 g/dL (12.0-16.0); IMMATURE GRAN ABSOLUTE AUTO 0.04 K/uL (0.00-0.05); IMMATURE GRAN PERCENT AUTO 0.3 % (0.0-0.4); LYMPHOCYTES PERCENT AUTO 30.9 % (24.0-44.0); MEAN CORPUSCULAR HEMOGLOBIN 27.2 pg (28.0-32.0); MEAN CORPUSCULAR HGB CONC 33.7 g/dL (32.0-36.0); MEAN CORPUSCULAR VOLUME 80.7 fL (83.0-99.0); MEAN PLATELET VOLUME 10.8 fL (9.4-12.3); MONOCYTES ABSOLUTE AUTO 0.91 K/uL (0.00-0.80); MONOCYTES PERCENT AUTO 5.9 % (0.0-8.0); NEUTROPHILS ABSOLUTE AUTO 9.05 K/uL (1.80-7.70); NEUTROPHILS PERCENT AUTO 58.3 % (41.0-71.0); PLATELET COUNT,PLT 363 K/uL (150-400); RED BLOOD CELL COUNT 4.56 M/uL (4.10-5.30); WHITE BLOOD CELL COUNT,WBC 15.51 K/uL (3.9-11.3)
[2023-04-07] MEDS ORDERED: Ondansetron 4 MG/2 ML SDV IVPUSH ONE (20:42)
[2023-04-07] MEDS ORDERED: Sodium Chloride 0.9% 1,000 ML IV ONE (20:42)
[2023-04-07 20:51] LABS: CORONAVIRUS COVID-19 NAA NEGATIVE (NEGATIVE); INFLUENZA A NAA NEGATIVE (NEGATIVE); INFLUENZA B NAA NEGATIVE (NEGATIVE)
[2023-04-07 21:19] LABS: A/G RATIO 0.8 (0.9-1.6); ALBUMIN 3.2 g/dL (3.4-5.0); BILIRUBIN TOTAL 0.1 mg/dL (0.2-1.0); CALCIUM 8.3 mg/dL (8.5-10.1); CARBON DIOXIDE,CO2 25.4 mmol/L (21.0-32.0); EST CRCL DRUG DOSING (CG) 53.82 mL/min; MAGNESIUM 1.8 mg/dL (1.8-2.4); POTASSIUM,K 3.8 mmol/L (3.5-5.1)
[2023-04-07 21:41] VITALS: BP 133/69; PULSE 93
== END 2023-04-07 21:41 | disposition home or self-care (01) ==
LOC: MW.ED 20:02
DX: J32.9 Chronic sinusitis, unspecified (principal); Z20.822 Contact with and (suspected) exposure to COVID-19; I25.2 Old myocardial infarction; Z86.16 Personal history of COVID-19; Z79.82 Long term (current) use of aspirin; Z88.0 Allergy status to penicillin; Z88.5 Allergy status to narcotic agent
CPT/HCPCS: 0240U; 36415; 71045; 80053; 83735; 84484; 84703; 85025; 96361; 96374; 99284; J2405; J7030

== ENCOUNTER 2023-04-10 19:23 | Emergency (ER) | payer BC ==
[2023-04-10] MEDS ORDERED: Sodium Chloride 0.9% 1,000 ML IV ONE (20:00)
[2023-04-10 20:16] LABS: HEMOGLOBIN 13.7 g/dL (12.0-16.0); MEAN CORPUSCULAR HEMOGLOBIN 26.7 pg (28.0-32.0); MEAN CORPUSCULAR HGB CONC 33.4 g/dL (32.0-36.0); MEAN CORPUSCULAR VOLUME 79.8 fL (83.0-99.0); MEAN PLATELET VOLUME 10.6 fL (9.4-12.3); PLATELET COUNT,PLT 399 K/uL (150-400); RED BLOOD CELL COUNT 5.14 M/uL (4.10-5.30); WHITE BLOOD CELL COUNT,WBC 15.47 K/uL (3.9-11.3)
[2023-04-10 20:48] LABS: A/G RATIO 0.9 (0.9-1.6); ALBUMIN 3.7 g/dL (3.4-5.0); BILIRUBIN TOTAL 0.2 mg/dL (0.2-1.0); CALCIUM 9.3 mg/dL (8.5-10.1); CARBON DIOXIDE,CO2 28.3 mmol/L (21.0-32.0); EST CRCL DRUG DOSING (CG) 53.82 mL/min; POTASSIUM,K 4.1 mmol/L (3.5-5.1); PROTEIN TOTAL,TP 7.9 g/dL (6.4-8.2); TSH ULTRASENSITIVE 5.1 uIU/mL (0.36-3.74)
[2023-04-10 21:09] LABS: SEG NEUTROPHILS ABSOLUTE MAN 8.04 K/uL (1.80-7.70); SEG NEUTROPHILS PERCENT MAN 52 % (41-71)
[2023-04-10 21:10] LABS: EOSINOPHILS ABSOLUTE MAN 0.46 K/uL (0.00-0.45); EOSINOPHILS PERCENT MAN 3 % (0-6); LYMPHOCYTES ABSOLUTE MAN 5.88 K/uL (1.00-4.80); LYMPHOCYTES PERCENT MAN 38 % (24-44); METAMYELOCYTE ABSOLUTE MAN 0.15; METAMYELOCYTE PERCENT MAN 1 %; MONOCYTES ABSOLUTE MAN 0.93 K/uL (0.00-0.80); MONOCYTES PERCENT MAN 6 % (0-8)
[2023-04-10 21:27] VITALS: BP 119/91; PULSE 96
== END 2023-04-10 21:29 | disposition home or self-care (01) ==
LOC: MW.ED 19:23
DX: R00.2 Palpitations (principal); E03.9 Hypothyroidism, unspecified; I10 Essential (primary) hypertension; J44.9 Chronic obstructive pulmonary disease, unspecified; E10.9 Type 1 diabetes mellitus without complications; Z86.16 Personal history of COVID-19; Z79.82 Long term (current) use of aspirin; Z79.899 Other long term (current) drug therapy; Z79.4 Long term (current) use of insulin; Z88.0 Allergy status to penicillin; Z88.1 Allergy status to other antibiotic agents; Z88.2 Allergy status to sulfonamides; Z88.8 Allergy status to other drugs, medicaments and biological substances; Z88.5 Allergy status to narcotic agent
CPT/HCPCS: 36415; 71045; 71045-26; 80053; 84443; 84484; 85025; 99285

== ENCOUNTER 2023-06-27 13:45 | Emergency (ER) | payer BC ==
[2023-06-27] MEDS: Sodium Chloride 0.9% 1,000 ML IV ONE (14:13)
[2023-06-27] MEDS: Ondansetron 4 MG/2 ML SDV IVPUSH ONE (14:20)
[2023-06-27] MEDS: Ketorolac 30 MG/ML SDV IVPUSH ONE (14:20)
[2023-06-27] MEDS: Metoclopramide 10 MG/2 ML SDV IVPUSH ONE (14:20)
[2023-06-27] MEDS: diphenhydrAMINE 50 MG/ML SDV IVPUSH ONE (14:20)
[2023-06-27 15:20] LABS: APPEARANCE,URINE SLT CLOUDY; BILIRUBIN,URINE NEGATIVE (NEGATIVE); GLUCOSE,URINE NEGATIVE (NEGATIVE); KETONES,URINE NEGATIVE (NEGATIVE); LEUKOCYTE ESTERASE,URINE TRACE (NEGATIVE); NITRITE,URINE NEGATIVE (NEGATIVE); OCCULT BLOOD,URINE NEGATIVE (NEGATIVE); PH,URINE 6.5 (5.0-8.0); PROTEIN,URINE NEGATIVE (NEGATIVE); UROBILINOGEN,URINE 0.2 EU/dL (<2.0)
[2023-06-27 15:30] LABS: COLOR,URINE STRAW
[2023-06-27 15:34] LABS: RBC,URINE 0-1 (0-2/HPF)
[2023-06-27 15:35] LABS: BACTERIA,URINE 1+ (NEGATIVE); EPITHELIAL CELLS,URINE MODERATE (NONE-FEW)
[2023-06-27 15:43] VITALS: BP 125/87; PULSE 78
== END 2023-06-27 15:53 | disposition home or self-care (01) ==
LOC: MW.ED 13:45
DX: G43.909 Migraine, unspecified, not intractable, without status migrainosus (principal); J32.9 Chronic sinusitis, unspecified; I25.2 Old myocardial infarction; J45.909 Unspecified asthma, uncomplicated; E10.9 Type 1 diabetes mellitus without complications; Z88.0 Allergy status to penicillin; Z88.2 Allergy status to sulfonamides; Z88.8 Allergy status to other drugs, medicaments and biological substances; Z79.82 Long term (current) use of aspirin; Z79.2 Long term (current) use of antibiotics; Z79.899 Other long term (current) drug therapy; Z79.4 Long term (current) use of insulin; Z75.8 Other problems related to medical facilities and other health care
CPT/HCPCS: 70450; 81001; 87086; 96360; 99284; J7030

== ENCOUNTER 2023-07-28 23:34 | Emergency (ER) | payer BC ==
[2023-07-29 00:05] LABS: BASOPHILS ABSOLUTE AUTO 0.06 K/uL (0.00-0.20); BASOPHILS PERCENT AUTO 0.4 % (0.0-1.0); EOSINOPHILS ABSOLUTE AUTO 0.43 K/uL (0.00-0.45); EOSINOPHILS PERCENT AUTO 3.1 % (0.0-6.0); HEMATOCRIT 36.6 % (37.0-47.0); HEMOGLOBIN 12.1 g/dL (12.0-16.0); IMMATURE GRAN ABSOLUTE AUTO 0.15 K/uL (0.00-0.05); IMMATURE GRAN PERCENT AUTO 1.1 % (0.0-0.4); LYMPHOCYTES ABSOLUTE AUTO 4.55 K/uL (1.00-4.80); LYMPHOCYTES PERCENT AUTO 32.4 % (24.0-44.0); MEAN CORPUSCULAR HEMOGLOBIN 26.8 pg (28.0-32.0); MEAN CORPUSCULAR HGB CONC 33.1 g/dL (32.0-36.0); MEAN PLATELET VOLUME 10.3 fL (9.4-12.3); MONOCYTES ABSOLUTE AUTO 0.82 K/uL (0.00-0.80); MONOCYTES PERCENT AUTO 5.8 % (0.0-8.0); NEUTROPHILS ABSOLUTE AUTO 8.04 K/uL (1.80-7.70); NEUTROPHILS PERCENT AUTO 57.2 % (41.0-71.0); PLATELET COUNT,PLT 392 K/uL (150-400); RED BLOOD CELL COUNT 4.52 M/uL (4.10-5.30); WHITE BLOOD CELL COUNT,WBC 14.05 K/uL (3.9-11.3)
[2023-07-29] MEDS: Alum Hydro/Mag Hydro/Simeth XS 15 ML, Lidocaine 2% 5 ML PO ONE (00:12)
[2023-07-29 00:32] LABS: A/G RATIO 0.8 (0.9-1.6); ALBUMIN 3.1 g/dL (3.4-5.0); BILIRUBIN TOTAL 0.2 mg/dL (0.2-1.0); CALCIUM 9.1 mg/dL (8.5-10.1); CARBON DIOXIDE,CO2 27.4 mmol/L (21.0-32.0); EST CRCL DRUG DOSING (CG) 53.82 mL/min; POTASSIUM,K 3.8 mmol/L (3.5-5.1)
[2023-07-29 01:46] VITALS: BP 141/78; PULSE 86
== END 2023-07-29 01:45 | disposition home or self-care (01) ==
LOC: MW.ED 23:34
DX: R07.9 Chest pain, unspecified (principal); E10.9 Type 1 diabetes mellitus without complications; I25.2 Old myocardial infarction; J45.909 Unspecified asthma, uncomplicated; K21.9 Gastro-esophageal reflux disease without esophagitis; Z79.4 Long term (current) use of insulin; Z79.82 Long term (current) use of aspirin; Z79.899 Other long term (current) drug therapy; Z88.1 Allergy status to other antibiotic agents; Z88.2 Allergy status to sulfonamides; Z88.0 Allergy status to penicillin; Z88.8 Allergy status to other drugs, medicaments and biological substances; Z75.8 Other problems related to medical facilities and other health care
CPT/HCPCS: 36415; 71045; 71045-26; 80053; 83690; 84484; 85025; 93005; 93010; 99282; 99285; A9270-GY

== ENCOUNTER 2023-10-29 23:13 | Emergency (ER) | payer BC ==
[2023-10-29] MEDS: Sodium Chloride 0.9% 1,000 ML IV ONE (23:38)
[2023-10-29] MEDS: Ondansetron 4 MG/2 ML SDV IVPUSH ONE (23:38)
[2023-10-29 23:51] LABS: BASOPHILS ABSOLUTE AUTO 0.07 K/uL (0.00-0.20); BASOPHILS PERCENT AUTO 0.5 % (0.0-1.0); EOSINOPHILS ABSOLUTE AUTO 0.49 K/uL (0.00-0.45); EOSINOPHILS PERCENT AUTO 3.7 % (0.0-6.0); HEMATOCRIT 38.8 % (37.0-47.0); HEMOGLOBIN 12.5 g/dL (12.0-16.0); IMMATURE GRAN ABSOLUTE AUTO 0.04 K/uL (0.00-0.05); IMMATURE GRAN PERCENT AUTO 0.3 % (0.0-0.4); LYMPHOCYTES ABSOLUTE AUTO 4.79 K/uL (1.00-4.80); LYMPHOCYTES PERCENT AUTO 36.5 % (24.0-44.0); MEAN CORPUSCULAR HEMOGLOBIN 26.3 pg (28.0-32.0); MEAN CORPUSCULAR HGB CONC 32.2 g/dL (32.0-36.0); MEAN CORPUSCULAR VOLUME 81.7 fL (83.0-99.0); MEAN PLATELET VOLUME 10.7 fL (9.4-12.3); MONOCYTES ABSOLUTE AUTO 0.78 K/uL (0.00-0.80); MONOCYTES PERCENT AUTO 5.9 % (0.0-8.0); NEUTROPHILS ABSOLUTE AUTO 6.94 K/uL (1.80-7.70); NEUTROPHILS PERCENT AUTO 53.1 % (41.0-71.0); PLATELET COUNT,PLT 344 K/uL (150-400); RED BLOOD CELL COUNT 4.75 M/uL (4.10-5.30); WHITE BLOOD CELL COUNT,WBC 13.11 K/uL (3.9-11.3)
[2023-10-30 00:01] LABS: APPEARANCE,URINE CLEAR; BILIRUBIN,URINE NEGATIVE (NEGATIVE); COLOR,URINE YELLOW; GLUCOSE,URINE NEGATIVE (NEGATIVE); KETONES,URINE NEGATIVE (NEGATIVE); LEUKOCYTE ESTERASE,URINE NEGATIVE (NEGATIVE); NITRITE,URINE NEGATIVE (NEGATIVE); OCCULT BLOOD,URINE NEGATIVE (NEGATIVE); PROTEIN,URINE NEGATIVE (NEGATIVE); UROBILINOGEN,URINE 0.2 EU/dL (<2.0)
[2023-10-30 00:10] LABS: AMPHETAMINES SCREEN, URINE NEGATIVE (CUTOFF=500); BARBITURATE SCREEN,URINE NEGATIVE (CUTOFF=200); BENZODIAZEPINES SCREEN,URINE NEGATIVE (CUTOFF=150); BUPRENORPHINE SCREEN,URINE NEGATIVE (CUTOFF=10); METHADONE SCREEN, URINE NEGATIVE (CUTOFF=200); METHAMPHETAMINES SCREEN, URINE NEGATIVE (CUTOFF=500); OXYCODONE SCREEN,URINE NEGATIVE (CUT0FF=100); PCP SCREEN,URINE NEGATIVE (CUTOFF=25); THC SCREEN,URINE 20 NG/ML NEGATIVE (CUTOFF=50)
[2023-10-30 00:41] VITALS: BP 130/76; PULSE 90
[2023-10-30 00:41] LABS: ALBUMIN 3.5 g/dL (3.4-5.0); BILIRUBIN TOTAL 0.2 mg/dL (0.2-1.0); CALCIUM 8.8 mg/dL (8.5-10.1); CARBON DIOXIDE,CO2 26.1 mmol/L (21.0-32.0); EST CRCL DRUG DOSING (CG) 53.82 mL/min; POTASSIUM,K 3.7 mmol/L (3.5-5.1)
== END 2023-10-30 02:05 | disposition home or self-care (01) ==
LOC: MW.ED 23:13
DX: R10.9 Unspecified abdominal pain (principal); R11.2 Nausea with vomiting, unspecified; R19.7 Diarrhea, unspecified; I10 Essential (primary) hypertension; E10.9 Type 1 diabetes mellitus without complications; Z88.0 Allergy status to penicillin; Z88.1 Allergy status to other antibiotic agents; Z88.2 Allergy status to sulfonamides; Z88.8 Allergy status to other drugs, medicaments and biological substances; Z79.82 Long term (current) use of aspirin; Z79.899 Other long term (current) drug therapy; Z75.8 Other problems related to medical facilities and other health care
CPT/HCPCS: 36415; 80053; 80305; 81003; 81025; 85025; 96361; 96374; 99284; J2405; J7030

== ENCOUNTER 2023-11-13 13:32 | Emergency (ER) | payer BC ==
[2023-11-13] MEDS ORDERED: Sodium Chloride 0.9% 20 ML SDV IV PRN (13:36)
[2023-11-13] MEDS ORDERED: Sodium Chloride 0.9% 2.5 ML Syringe FLUSH PRN (13:36)
[2023-11-13] MEDS ORDERED: Sodium Chloride 0.9% 10 ML Syringe FLUSH PRN (13:36)
[2023-11-13 13:52] VITALS: BP 151/83; PULSE 104
[2023-11-13] MEDS: Ibuprofen 600 MG Tab PO ONE (14:11)
[2023-11-13] MEDS: Sodium Chloride 0.9% 1,000 ML IV STA (14:11)
== END 2023-11-13 15:20 | disposition home or self-care (01) ==
LOC: MW.ED 13:32
DX: M79.10 Myalgia, unspecified site (principal); I25.2 Old myocardial infarction; K21.9 Gastro-esophageal reflux disease without esophagitis; J45.909 Unspecified asthma, uncomplicated; E10.9 Type 1 diabetes mellitus without complications; Z79.82 Long term (current) use of aspirin; Z79.899 Other long term (current) drug therapy; Z79.4 Long term (current) use of insulin; Z88.0 Allergy status to penicillin; Z75.8 Other problems related to medical facilities and other health care; Z88.1 Allergy status to other antibiotic agents; Z88.2 Allergy status to sulfonamides; Z88.8 Allergy status to other drugs, medicaments and biological substances
CPT/HCPCS: 71046; 99284; A9270; J7030

== ENCOUNTER 2023-11-17 13:00 | Emergency (ER) | payer BC ==
[2023-11-17] MEDS: Albuterol 0.083% 2.5 MG/3 ML Neb Soln NEB ONE (14:01)
[2023-11-17 14:18] LABS: CORONAVIRUS COVID-19 NAA POSITIVE (NEGATIVE); INFLUENZA A NAA NEGATIVE (NEGATIVE); INFLUENZA B NAA NEGATIVE (NEGATIVE); RESPIRATORY SYNCYTIAL VIR NAA NEGATIVE (NEGATIVE)
[2023-11-17 15:39] VITALS: BP 138/86; PULSE 102
[2023-11-17] MEDS: guaiFENesin 600 MG Tab.ER PO ONE (15:44)
[2023-11-17] MEDS: Acetaminophen 500 MG Tab PO ONE (15:44)
== END 2023-11-17 15:58 | disposition home or self-care (01) ==
LOC: MW.ED 13:00
DX: U07.1 COVID-19 (principal); J12.82 Pneumonia due to coronavirus disease 2019; J45.909 Unspecified asthma, uncomplicated; K21.9 Gastro-esophageal reflux disease without esophagitis; E10.9 Type 1 diabetes mellitus without complications; Z79.899 Other long term (current) drug therapy; Z79.4 Long term (current) use of insulin; Z79.82 Long term (current) use of aspirin; Z88.2 Allergy status to sulfonamides; Z88.0 Allergy status to penicillin; Z88.8 Allergy status to other drugs, medicaments and biological substances; Z88.1 Allergy status to other antibiotic agents
CPT/HCPCS: 0241U; 71046; 87651; 99284; A9270; J7620-GY

== ENCOUNTER 2024-01-03 22:37 | Emergency (ER) | payer BC ==
[2024-01-03 23:33] LABS: HEMATOCRIT 38.7 % (37.0-47.0); HEMOGLOBIN 12.4 g/dL (12.0-16.0); MEAN CORPUSCULAR HEMOGLOBIN 26.1 pg (28.0-32.0); MEAN CORPUSCULAR VOLUME 81.3 fL (83.0-99.0); MEAN PLATELET VOLUME 10.6 fL (9.4-12.3); PLATELET COUNT,PLT 377 K/uL (150-400); RED BLOOD CELL COUNT 4.76 M/uL (4.10-5.30); WHITE BLOOD CELL COUNT,WBC 14.34 K/uL (3.9-11.3)
[2024-01-03 23:38] LABS: CALCIUM 9.1 mg/dL (8.5-10.1); CARBON DIOXIDE,CO2 26.2 mmol/L (21.0-32.0); CREATININE 0.9 mg/dL (0.6-1.0); EST CRCL DRUG DOSING (CG) 70.78 mL/min; POTASSIUM,K 3.6 mmol/L (3.5-5.1)
[2024-01-04 00:03] LABS: BASOPHILS ABSOLUTE MAN 0.14 K/uL (0.00-0.20); BASOPHILS PERCENT MAN 1 % (0-1); EOSINOPHILS ABSOLUTE MAN 0.29 K/uL (0.00-0.45); EOSINOPHILS PERCENT MAN 2 % (0-6); LYMPHOCYTES ABSOLUTE MAN 5.16 K/uL (1.00-4.80); LYMPHOCYTES PERCENT MAN 36 % (24-44); MONOCYTES ABSOLUTE MAN 1.15 K/uL (0.00-0.80); MONOCYTES PERCENT MAN 8 % (0-8); SEG NEUTROPHILS PERCENT MAN 53 % (41-71)
[2024-01-04 00:15] VITALS: BP 125/80; PULSE 85
== END 2024-01-04 00:15 | disposition home or self-care (01) ==
LOC: MW.ED 22:37
DX: R00.2 Palpitations (principal); J45.909 Unspecified asthma, uncomplicated; K21.9 Gastro-esophageal reflux disease without esophagitis; E10.9 Type 1 diabetes mellitus without complications; I25.2 Old myocardial infarction; Z79.82 Long term (current) use of aspirin; Z79.899 Other long term (current) drug therapy; Z79.4 Long term (current) use of insulin; Z88.8 Allergy status to other drugs, medicaments and biological substances; Z88.0 Allergy status to penicillin; Z88.1 Allergy status to other antibiotic agents; Z91.048 Other nonmedicinal substance allergy status; Z88.3 Allergy status to other anti-infective agents; Z88.2 Allergy status to sulfonamides; Z86.16 Personal history of COVID-19
CPT/HCPCS: 36415; 80048; 85025; 93005; 93010; 99284; 99285

== ENCOUNTER 2024-01-07 15:34 | Emergency (ER) | payer BC ==
[2024-01-07] MEDS ORDERED: Sodium Chloride 0.9% 2.5 ML Syringe FLUSH PRN (15:45)
[2024-01-07] MEDS ORDERED: Sodium Chloride 0.9% 10 ML Syringe FLUSH PRN (15:45)
[2024-01-07 16:16] LABS: BASOPHILS ABSOLUTE AUTO 0.06 K/uL (0.00-0.20); BASOPHILS PERCENT AUTO 0.5 % (0.0-1.0); EOSINOPHILS ABSOLUTE AUTO 0.32 K/uL (0.00-0.45); EOSINOPHILS PERCENT AUTO 2.5 % (0.0-6.0); HEMATOCRIT 36.5 % (37.0-47.0); HEMOGLOBIN 12.2 g/dL (12.0-16.0); IMMATURE GRAN ABSOLUTE AUTO 0.03 K/uL (0.00-0.05); IMMATURE GRAN PERCENT AUTO 0.2 % (0.0-0.4); LYMPHOCYTES ABSOLUTE AUTO 4.51 K/uL (1.00-4.80); LYMPHOCYTES PERCENT AUTO 35.7 % (24.0-44.0); MEAN CORPUSCULAR HEMOGLOBIN 26.3 pg (28.0-32.0); MEAN CORPUSCULAR HGB CONC 33.4 g/dL (32.0-36.0); MEAN CORPUSCULAR VOLUME 78.7 fL (83.0-99.0); MEAN PLATELET VOLUME 10.2 fL (9.4-12.3); MONOCYTES ABSOLUTE AUTO 0.79 K/uL (0.00-0.80); MONOCYTES PERCENT AUTO 6.2 % (0.0-8.0); NEUTROPHILS ABSOLUTE AUTO 6.94 K/uL (1.80-7.70); NEUTROPHILS PERCENT AUTO 54.9 % (41.0-71.0); PLATELET COUNT,PLT 366 K/uL (150-400); RED BLOOD CELL COUNT 4.64 M/uL (4.10-5.30); WHITE BLOOD CELL COUNT,WBC 12.65 K/uL (3.9-11.3)
[2024-01-07 16:49] LABS: ALANINE AMINOTRANSFERASE,ALT 57 IU/L (14-63); ALBUMIN 3.6 g/dL (3.4-5.0); ALKALINE PHOSPHATASE 151 U/L (46-116); ASPARTATE AMNIOTRANSFERASE,AST 33 IU/L (15-37); BILIRUBIN TOTAL 0.2 mg/dL (0.2-1.0); BLOOD UREA NITROGEN,BUN 12 mg/dL (7.0-18.0); CALCIUM 9.5 mg/dL (8.5-10.1); CHLORIDE,CL 101 mmol/L (98-107); CREATININE 0.9 mg/dL (0.6-1.0); GLUCOSE RANDOM 151 mg/dL (74-106); POTASSIUM,K 3.8 mmol/L (3.5-5.1); PRO B-TYPE NATRIUR PEPT,BNPPRO 57 pg/mL (0-125); PROTEIN TOTAL,TP 7.3 g/dL (6.4-8.2); SODIUM,NA 136 mmol/L (136-145); TSH ULTRASENSITIVE 3.92 uIU/mL (0.36-3.74)
[2024-01-07 16:51] LABS: ESTIMATED GFR 78 mL/min (>60)
[2024-01-07 17:13] VITALS: BP 124/67; PULSE 95
== END 2024-01-07 17:13 | disposition home or self-care (01) ==
LOC: MW.ED 15:34
DX: R00.2 Palpitations (principal); Z75.8 Other problems related to medical facilities and other health care; J45.909 Unspecified asthma, uncomplicated; K21.9 Gastro-esophageal reflux disease without esophagitis; E10.9 Type 1 diabetes mellitus without complications; Z79.899 Other long term (current) drug therapy; Z79.82 Long term (current) use of aspirin; Z79.4 Long term (current) use of insulin; Z88.8 Allergy status to other drugs, medicaments and biological substances; Z88.1 Allergy status to other antibiotic agents; Z88.0 Allergy status to penicillin; Z88.5 Allergy status to narcotic agent; Z88.2 Allergy status to sulfonamides
CPT/HCPCS: 36415; 71045; 71045-26; 80053; 83880; 84443; 84484; 85025; 93005; 99285

== ENCOUNTER 2024-01-14 20:07 | Emergency (ER) | payer BC ==
[2024-01-14 22:59] VITALS: BP 148/79; PULSE 88
== END 2024-01-14 22:58 | disposition home or self-care (01) ==
LOC: MW.ED 20:07
DX: R51.9 Headache, unspecified (principal); J45.909 Unspecified asthma, uncomplicated; K21.9 Gastro-esophageal reflux disease without esophagitis; E10.9 Type 1 diabetes mellitus without complications; Z79.82 Long term (current) use of aspirin; Z79.4 Long term (current) use of insulin; Z79.899 Other long term (current) drug therapy; Z88.1 Allergy status to other antibiotic agents; Z88.2 Allergy status to sulfonamides; Z88.8 Allergy status to other drugs, medicaments and biological substances; Z88.9 Allergy status to unspecified drugs, medicaments and biological substances; Z75.8 Other problems related to medical facilities and other health care
CPT/HCPCS: 70450; 70450-26; 99284

== ENCOUNTER 2024-04-08 23:31 | Emergency (ER) | payer BC ==
[2024-04-09 02:02] VITALS: BP 117/64; PULSE 83
== END 2024-04-09 02:01 | disposition home or self-care (01) ==
LOC: MW.ED 23:31
DX: L04.9 Acute lymphadenitis, unspecified (principal); I25.2 Old myocardial infarction; J45.909 Unspecified asthma, uncomplicated; K21.9 Gastro-esophageal reflux disease without esophagitis; E10.9 Type 1 diabetes mellitus without complications; Z86.16 Personal history of COVID-19; Z88.0 Allergy status to penicillin; Z88.1 Allergy status to other antibiotic agents; Z88.8 Allergy status to other drugs, medicaments and biological substances; Z88.2 Allergy status to sulfonamides; Z79.82 Long term (current) use of aspirin; Z79.4 Long term (current) use of insulin; Z79.899 Other long term (current) drug therapy
CPT/HCPCS: 87428-QW; 87651-QW; 99283

== ENCOUNTER 2024-06-10 18:46 | Emergency (ER) | payer SELFPAY | END 2024-06-10 19:11 | disposition left against medical advice (07) | LOC: MW.ED 18:46 | DX: Z53.21 Procedure and treatment not carried out due to patient leaving prior to being seen by health care provider (principal) ==

== ENCOUNTER 2024-06-10 20:34 | Emergency (ER) | payer SELFPAY ==
[2024-06-10 21:16] LABS: BASOPHILS ABSOLUTE AUTO 0.11 K/uL (0.00-0.20); BASOPHILS PERCENT AUTO 0.7 % (0.0-1.0); EOSINOPHILS ABSOLUTE AUTO 0.54 K/uL (0.00-0.45); EOSINOPHILS PERCENT AUTO 3.5 % (0.0-6.0); HEMATOCRIT 36.9 % (37.0-47.0); HEMOGLOBIN 12.3 g/dL (12.0-16.0); IMMATURE GRAN ABSOLUTE AUTO 0.04 K/uL (0.00-0.05); IMMATURE GRAN PERCENT AUTO 0.3 % (0.0-0.4); LYMPHOCYTES ABSOLUTE AUTO 4.64 K/uL (1.00-4.80); LYMPHOCYTES PERCENT AUTO 30.2 % (24.0-44.0); MEAN CORPUSCULAR HEMOGLOBIN 26.5 pg (28.0-32.0); MEAN CORPUSCULAR HGB CONC 33.3 g/dL (32.0-36.0); MEAN CORPUSCULAR VOLUME 79.4 fL (83.0-99.0); MEAN PLATELET VOLUME 10.5 fL (9.4-12.3); MONOCYTES ABSOLUTE AUTO 0.83 K/uL (0.00-0.80); MONOCYTES PERCENT AUTO 5.4 % (0.0-8.0); NEUTROPHILS ABSOLUTE AUTO 9.18 K/uL (1.80-7.70); NEUTROPHILS PERCENT AUTO 59.9 % (41.0-71.0); PLATELET COUNT,PLT 371 K/uL (150-400); RED BLOOD CELL COUNT 4.65 M/uL (4.10-5.30); WHITE BLOOD CELL COUNT,WBC 15.34 K/uL (3.9-11.3)
[2024-06-10 21:35] LABS: INR 0.99 (0.86-1.11)
[2024-06-10 21:42] LABS: CALCIUM 9.1 mg/dL (8.5-10.1); CARBON DIOXIDE,CO2 23.1 mmol/L (21.0-32.0); CREATININE 1.2 mg/dL (0.6-1.0); EST CRCL DRUG DOSING (CG) 44.36 mL/min; POTASSIUM,K 3.9 mmol/L (3.5-5.1)
[2024-06-10 22:16] VITALS: BP 114/61; PULSE 81
== END 2024-06-10 22:17 | disposition home or self-care (01) ==
LOC: MW.ED 20:34
DX: M35.00 Sjogren syndrome, unspecified (principal); I25.2 Old myocardial infarction; K21.9 Gastro-esophageal reflux disease without esophagitis; E10.9 Type 1 diabetes mellitus without complications; Z88.8 Allergy status to other drugs, medicaments and biological substances; Z88.0 Allergy status to penicillin; Z88.2 Allergy status to sulfonamides; Z79.82 Long term (current) use of aspirin; Z79.899 Other long term (current) drug therapy; Z79.4 Long term (current) use of insulin
CPT/HCPCS: 36415; 80048; 85025; 85610; 85730; 99284

== ENCOUNTER 2024-06-28 19:20 | Emergency (ER) | payer BC ==
[2024-06-28] MEDS: guaiFENesin/Dextromethorphan 100-10 MG/5 ML Soln 10 ML Cup PO ONE (19:48)
[2024-06-28 20:37] VITALS: BP 136/82; PULSE 87
== END 2024-06-28 20:37 | disposition home or self-care (01) ==
LOC: MW.ED 19:20
DX: J06.9 Acute upper respiratory infection, unspecified (principal); R00.2 Palpitations; I25.2 Old myocardial infarction; K21.9 Gastro-esophageal reflux disease without esophagitis; E10.9 Type 1 diabetes mellitus without complications; Z79.82 Long term (current) use of aspirin; Z79.899 Other long term (current) drug therapy; Z88.8 Allergy status to other drugs, medicaments and biological substances; Z88.0 Allergy status to penicillin; Z88.1 Allergy status to other antibiotic agents; Z88.2 Allergy status to sulfonamides
CPT/HCPCS: 71045; 87428; 93005; 99285; A9270; 93010; 99283

== ENCOUNTER 2024-09-15 19:39 | Emergency (ER) | payer BC ==
[2024-09-15 21:03] VITALS: BP 126/75; PULSE 87
== END 2024-09-15 21:03 | disposition home or self-care (01) ==
LOC: MW.ED 19:39
DX: J45.901 Unspecified asthma with (acute) exacerbation (principal); I25.2 Old myocardial infarction; K21.9 Gastro-esophageal reflux disease without esophagitis; E10.9 Type 1 diabetes mellitus without complications; Z88.0 Allergy status to penicillin; Z88.2 Allergy status to sulfonamides; Z88.8 Allergy status to other drugs, medicaments and biological substances; Z79.82 Long term (current) use of aspirin; Z79.4 Long term (current) use of insulin; Z79.899 Other long term (current) drug therapy; Z75.3 Unavailability and inaccessibility of health-care facilities
CPT/HCPCS: 71045; 71045-26; 93005; 93010; 99283; 99285

== ENCOUNTER 2024-10-15 19:34 | Emergency (ER) | payer BC ==
[2024-10-15 20:12] VITALS: BP 145/84
[2024-10-15 21:46] LABS: MEAN PLATELET VOLUME 10.9 fL (9.4-12.3); NRBC ABSOLUTE 0.00 K/uL (0.00-0.02); NRBC PERCENT 0.0 /100WBC (0.0-0.2); PLATELET COUNT,PLT 362 K/uL (150-400); RED BLOOD CELL COUNT 4.74 M/uL (4.10-5.30); WHITE BLOOD CELL COUNT,WBC 15.63 K/uL (3.9-11.3)
[2024-10-15 22:18] LABS: A/G RATIO 0.9 (0.9-1.6); ALANINE AMINOTRANSFERASE,ALT 87 IU/L (14-63); ASPARTATE AMNIOTRANSFERASE,AST 46 IU/L (15-37); BILIRUBIN TOTAL 0.2 mg/dL (0.2-1.0); BLOOD UREA NITROGEN,BUN 16 mg/dL (7.0-18.0); CARBON DIOXIDE,CO2 28.9 mmol/L (21.0-32.0); CHLORIDE,CL 100 mmol/L (98-107); CREATININE 1.0 mg/dL (0.6-1.0); GLUCOSE RANDOM 169 mg/dL (74-106); POTASSIUM,K 4.0 mmol/L (3.5-5.1); PROTEIN TOTAL,TP 7.4 g/dL (6.4-8.2); SODIUM,NA 137 mmol/L (136-145)
[2024-10-15 22:21] LABS: ESTIMATED GFR 69 mL/min (>60)
[2024-10-15 22:29] LABS: EOSINOPHILS ABSOLUTE MAN 0.16 K/uL (0.00-0.45); EOSINOPHILS PERCENT MAN 1 % (0-6); LYMPHOCYTES ABSOLUTE MAN 4.69 K/uL (1.00-4.80); LYMPHOCYTES PERCENT MAN 30 % (24-44); MONOCYTES ABSOLUTE MAN 1.56 K/uL (0.00-0.80); MONOCYTES PERCENT MAN 10 % (0-8); SEG NEUTROPHILS ABSOLUTE MAN 9.22 K/uL (1.80-7.70); SEG NEUTROPHILS PERCENT MAN 59 % (41-71)
[2024-10-15 22:40] VITALS: PULSE 84
== END 2024-10-15 22:40 | disposition home or self-care (01) ==
LOC: MW.ED 19:34
DX: R42 Dizziness and giddiness (principal); I25.2 Old myocardial infarction; J45.909 Unspecified asthma, uncomplicated; K21.9 Gastro-esophageal reflux disease without esophagitis; E10.9 Type 1 diabetes mellitus without complications; Z88.8 Allergy status to other drugs, medicaments and biological substances; Z88.1 Allergy status to other antibiotic agents; Z88.0 Allergy status to penicillin; Z88.2 Allergy status to sulfonamides; Z79.82 Long term (current) use of aspirin; Z79.899 Other long term (current) drug therapy; Z79.4 Long term (current) use of insulin
CPT/HCPCS: 36415; 71045; 71045-26; 80053; 84484; 85025; 93005; 93010; 99283; 99285

== ENCOUNTER 2024-11-04 17:57 | Emergency (ER) | payer BC ==
[2024-11-04 18:28] VITALS: BP 133/75; PULSE 99
== END 2024-11-04 19:24 | disposition home or self-care (01) ==
LOC: MW.ED 17:57
DX: B37.2 Candidiasis of skin and nail (principal); I25.2 Old myocardial infarction; J45.909 Unspecified asthma, uncomplicated; E10.9 Type 1 diabetes mellitus without complications; Z88.0 Allergy status to penicillin; Z88.2 Allergy status to sulfonamides; Z88.8 Allergy status to other drugs, medicaments and biological substances; Z79.82 Long term (current) use of aspirin; Z79.4 Long term (current) use of insulin; Z79.899 Other long term (current) drug therapy
CPT/HCPCS: 99283

== ENCOUNTER 2025-01-05 02:19 | Emergency (ER) | payer BC ==
[2025-01-05] MEDS: Budesonide 0.5 MG/2 ML Neb Susp NEB ONE (02:57)
[2025-01-05 03:32] VITALS: BP 118/68; PULSE 93
== END 2025-01-05 03:32 | disposition home or self-care (01) ==
LOC: MW.ED 02:19
DX: J45.909 Unspecified asthma, uncomplicated (principal); I25.2 Old myocardial infarction; E10.9 Type 1 diabetes mellitus without complications; Z88.8 Allergy status to other drugs, medicaments and biological substances; Z88.0 Allergy status to penicillin; Z88.1 Allergy status to other antibiotic agents; Z88.2 Allergy status to sulfonamides; Z79.82 Long term (current) use of aspirin; Z79.899 Other long term (current) drug therapy; Z79.4 Long term (current) use of insulin; Z79.51 Long term (current) use of inhaled steroids
CPT/HCPCS: 71046; 99283; J7620; 99284; A9270-GY

== ENCOUNTER 2025-01-08 15:46 | Emergency (ER) | payer BC ==
[2025-01-08] MEDS ORDERED: Sodium Chloride 0.9% 2.5 ML Syringe FLUSH PRN (15:58)
[2025-01-08] MEDS ORDERED: Sodium Chloride 0.9% 10 ML Syringe FLUSH PRN (15:58)
[2025-01-08 16:03] LABS: BASOPHILS ABSOLUTE AUTO 0.10 K/uL (0.00-0.20); BASOPHILS PERCENT AUTO 0.6 % (0.0-1.0); EOSINOPHILS ABSOLUTE AUTO 0.45 K/uL (0.00-0.45); EOSINOPHILS PERCENT AUTO 2.7 % (0.0-6.0); IMMATURE GRAN ABSOLUTE AUTO 0.08 K/uL (0.00-0.05); IMMATURE GRAN PERCENT AUTO 0.5 % (0.0-0.4); LYMPHOCYTES ABSOLUTE AUTO 4.19 K/uL (1.00-4.80); LYMPHOCYTES PERCENT AUTO 25.5 % (24.0-44.0); MEAN PLATELET VOLUME 10.4 fL (9.4-12.3); MONOCYTES ABSOLUTE AUTO 0.97 K/uL (0.00-0.80); MONOCYTES PERCENT AUTO 5.9 % (0.0-8.0); NEUTROPHILS ABSOLUTE AUTO 10.61 K/uL (1.80-7.70); NEUTROPHILS PERCENT AUTO 64.8 % (41.0-71.0); NRBC ABSOLUTE 0.00 K/uL (0.00-0.02); NRBC PERCENT 0.0 /100WBC (0.0-0.2); PLATELET COUNT,PLT 385 K/uL (150-400); RED BLOOD CELL COUNT 4.89 M/uL (4.10-5.30); WHITE BLOOD CELL COUNT,WBC 16.40 K/uL (3.9-11.3)
[2025-01-08 16:31] LABS: BLOOD UREA NITROGEN,BUN 17.0 mg/dL (7.0-18.0); CARBON DIOXIDE,CO2 25.1 mmol/L (21.0-32.0); CHLORIDE,CL 103.0 mmol/L (98-107); CREATININE 1.0 mg/dL (0.6-1.0); EST CRCL DRUG DOSING (CG) 53.23 mL/min; GLUCOSE RANDOM 109.0 mg/dL (74-106); POTASSIUM,K 4.0 mmol/L (3.5-5.1); SODIUM,NA 139.0 mmol/L (136-145); TSH ULTRASENSITIVE 4.58 uIU/mL (0.36-3.74)
[2025-01-08 16:33] LABS: ESTIMATED GFR 69.0 mL/min (>60)
[2025-01-08 16:48] LABS: T4 FREE 0.75 ng/dL (0.76-1.46)
[2025-01-08 17:06] VITALS: BP 143/79; PULSE 94
== END 2025-01-08 17:06 | disposition home or self-care (01) ==
LOC: MW.ED 15:46
DX: R00.2 Palpitations (principal); I25.10 Atherosclerotic heart disease of native coronary artery without angina pectoris; I25.2 Old myocardial infarction; J45.909 Unspecified asthma, uncomplicated; K21.9 Gastro-esophageal reflux disease without esophagitis; E10.9 Type 1 diabetes mellitus without complications; Z95.5 Presence of coronary angioplasty implant and graft; Z79.82 Long term (current) use of aspirin; Z79.899 Other long term (current) drug therapy; Z79.4 Long term (current) use of insulin; Z88.2 Allergy status to sulfonamides; Z88.8 Allergy status to other drugs, medicaments and biological substances; Z88.0 Allergy status to penicillin; Z88.1 Allergy status to other antibiotic agents
CPT/HCPCS: 36415; 71045; 71045-26; 80048; 84439; 84443; 84484; 85025; 85379; 93005; 93010; 99284; 99285